=== PATIENT | female | born 1995 | race Caucasian/White ===

== ENCOUNTER 2024-10-07 10:22 | Outpatient (OUT) | payer MEDICAID, SELFPAY ==
--- NOTE | 2024-10-07 10:25 | US_ITS ---
[address] [address] Patient Name: GLENNA MCKEON MRN: [id number] date: 1995 Sex: F Assigned Patient Location: US Current Patient Location: US Accession/Order Number: [id number] Exam Date: 10/07/2024 10:26 Report Date: 10/07/2024 11:28 At the request of: DAVID HARDING Procedure: US OB anatomy EXAMINATION: US OB anatomy, US OB cervical length HISTORY: Related Condition In Second Trimester O26.92 COMPARISON: No relevant comparison available. TECHNIQUE: Transabdominal sonographic examination was performed for obstetrical and evaluation. FINDINGS: Number: 1 Heart Rate: 142.86 bpm Amniotic Fluid Volume: Subjectively normal Placental Location: ANTERIOR with lower margin 4.8 cm from os. Cervix Length: 4.81 cm ; closed. ANATOMY: Normal Structures -cerebellum, choroid plexus, cisterna magna, lateral cerebral ventricles, orbits, midline falx, hard palate, four-chamber heart, RVOT, LVOT, stomach, kidneys, bladder, umbilical cord insertion into abdomen, three-vessel cord, cervical spine, thoracic spine, lumbar spine, sacral spine, right upper extremity, left upper extremity, right lower extremity, left lower extremity. SUBOPTIMALLY SEEN: None ABNORMALITIES: None BIOMETRY: BPD: 4.80 cm; 20 weeks 4 days; 40.70 % HC: 18.11 cm; 20 weeks 4 days; 32.20 % AC: 16.26 cm; 21 weeks 2 days; 64.40 % FL: 3.23 cm; 20 weeks 0 days; 20.40 % EFW:373.00 g; 45.50 % FL/AC: 19.85 FL/BPD: 67.25 HC/AC: 1.11 GESTATIONAL AGE: Age by EDC: 20 weeks 5 days Age by current US: 20 weeks 4 days JAMEL by current US: 2025-02-20 JAMEL by EDC: 2025-02-19 US/US OB anatomy IMPRESSION: 1. Single live intrauterine with growth detailed above. Electronically authenticated by: KIANA DOUGHERTY Date: 10/07/2024 11:28
--- NOTE | 2024-10-07 10:25 | US_ITS ---
[address] [address] Patient Name: GLENNA MCKEON MRN: [id number] date: 1995 Sex: F Assigned Patient Location: US Current Patient Location: US Accession/Order Number: [id number] Exam Date: 10/07/2024 10:26 Report Date: 10/07/2024 11:28 At the request of: DAVID HARDING Procedure: US OB cervical length EXAMINATION: US OB anatomy, US OB cervical length HISTORY: Related Condition In Second Trimester O26.92 COMPARISON: No relevant comparison available. TECHNIQUE: Transabdominal sonographic examination was performed for obstetrical and evaluation. FINDINGS: Number: 1 Heart Rate: 142.86 bpm Amniotic Fluid Volume: Subjectively normal Placental Location: ANTERIOR with lower margin 4.8 cm from os. Cervix Length: 4.81 cm ; closed. ANATOMY: Normal Structures -cerebellum, choroid plexus, cisterna magna, lateral cerebral ventricles, orbits, midline falx, hard palate, four-chamber heart, RVOT, LVOT, stomach, kidneys, bladder, umbilical cord insertion into abdomen, three-vessel cord, cervical spine, thoracic spine, lumbar spine, sacral spine, right upper extremity, left upper extremity, right lower extremity, left lower extremity. SUBOPTIMALLY SEEN: None ABNORMALITIES: None BIOMETRY: BPD: 4.80 cm; 20 weeks 4 days; 40.70 % HC: 18.11 cm; 20 weeks 4 days; 32.20 % AC: 16.26 cm; 21 weeks 2 days; 64.40 % FL: 3.23 cm; 20 weeks 0 days; 20.40 % EFW:373.00 g; 45.50 % FL/AC: 19.85 FL/BPD: 67.25 HC/AC: 1.11 GESTATIONAL AGE: Age by EDC: 20 weeks 5 days Age by current US: 20 weeks 4 days JAMEL by current US: 2025-02-20 JAMEL by EDC: 2025-02-19 US/US OB cervical length IMPRESSION: 1. Single live intrauterine with growth detailed above. Electronically authenticated by: KIANA DOUGHERTY Date: 10/07/2024 11:28
== END 2024-10-07 10:23 | disposition home or self-care (01) ==
LOC: US 10:22
PROVIDERS: Visit Provider Midwife
DX: O26.92 Pregnancy related conditions, unspecified, second trimester (principal); Z3A.20 20 weeks gestation of pregnancy
CPT/HCPCS: 76805; 76817

== ENCOUNTER 2024-12-01 07:32 | Outpatient (RCR) | payer OTHER, SELFPAY ==
[2024-12-01 12:10] VITALS: BP 119/78; PULSE 77; TEMP 36.6; O2SAT 100
[2024-12-01] MEDS: RHO(D) IMMUNE GLOBULIN 1,500 UNIT SYRINGE 1500 UNIT IM (12:21)
== END 2024-12-01 23:59 | disposition home or self-care (01) ==
LOC: INF 07:32
PROVIDERS: Visit Provider Midwife
DX: O26.893 Other specified pregnancy related conditions, third trimester (principal); Z67.91 Unspecified blood type, Rh negative
CPT/HCPCS: 36415; 86850; 86900; 86901; 96372; J2791

== ENCOUNTER 2025-02-10 00:40 | Observation (INO) | payer OTHER, SELFPAY ==
--- OUTSIDE RECORDS SUMMARY | 2025-02-10 00:49 | XMS_ITS | CCD ---
Author Organization [facility] Care Team Providers Care Barrel Builder Name Role Phone SULEMAN Martin Attending Provider [phone] NO FAMILY, PHYSICIAN Primary Care Provider Unava ilable Amrita Martin Unavailable Unavailable Primary Care Provider Unavailabl e NO PCP, NO PCP Primary Care Unavailable OLU YOUNG Attending Unavailable NO PCP, NO PCP Primary Care Unavailable NELY ROSE Attending Unavailable ANDRE CLEMONS Attending Unavailable NO PCP, NO PCP Primary Care Unavailable ALISTAIR GHOSH Admitting Unavailable Adilson Gandhi Attending Unavailable Oksana Adilson Admitting Unavailable NO FAMILY, PHYSICIAN Primary Care Unavailable NO PCP, NO PCP Primary Care Unavailable MYRNA LUCIA Attending Unavailable NO PCP, NO PCP Primary Care Unavailable HARSHA SAWYER Attending Unavailable FLORO, DAVID L Attending Unavailable FLORO, DAVID L Attending Unavailable FLORO, DAVID L Attending Unavailable FLORO, DAVID L Referring Unavailable FLORO, DAVID L Attending Unavailable FLORO, DAVID L Attending Unavailable FLORO, DAVID L Attending Unavailable FLORO, DAVID L Attending Unavailable FLORO, DAVID L Attending Unavailable FLORO, DAVID L Attending Unavailable Allergies Allergy Classification Reported Allergen(s) Allergy Type Date of Onset Reaction(s) Facility (2 sources) HYDROcodone; Translations: [HYDROCODONE] Drug Allergy 5 Unknown [facility] (3 sources) lamoTRIgine; Translations: [LAMOTRIGINE] Drug Allergy 7 Unknown [facility] (20 sources) Acetaminophen / HYDROcodone; Translations: [HYDROCODONE-ACET AMINOPHEN] Drug Allergy 6 Anaphylaxis, Nausea Only [facility] (20 sources) FLUoxetine; Translations: [FLUOXETINE] Drug Allergy 7 Nausea And Vomiting, GI intolerance [facility] (20 sources) Lamotrigine Allergy to substance 7 Nausea Only [facility] (1 source) lamoTRIgine Drug Allergy 4 [facility] Repository Medications Current Medications Medication Drug Class(es) Dates Sig (Normalized) Sig (Original) cephalexin 500 mg oral capsule (4 sources) Cephalosporin Antibacterial Start: 02-04-2025 End: 02-14-2025 take 1 capsule by mouth in the morning, then take 1 capsule by mouth in the evening, then take 1 capsule by mouth at bedtime cephalexin (Keflex) 500 MG capsule Indications: Asymptomatic microscopic hematuria Take 1 capsule (500 mg) by mouth in the morning and 1 capsule (500 mg) in the evening and 1 capsule (500 mg) before bedtime. Do all this for 10 days. 30 capsule 02/04/2025 02/14/2025 Active Start: 11-01-2024 End: 11-11-2024 cephalexin (Keflex) 500 MG c apsule Take 500 mg by mouth in the morning and 500 mg at noon and 500 mg in the evening and 500 mg before bedtime. 11/01/2024 11/11/2024 Active multivitamin () 27-0.8 MG tablet (16 sources) Start: 10-14-2024 take 1 tablet by mouth once daily multivitamin () 27-0.8 MG tablet Indications: examination or test, positive result Take 1 tablet by mouth Daily 30 tablet 11 10/14/2024 Active Completed/Discontinued Medications Medication Drug Class(es) Dates Sig (Normalized) Sig (Original) ondansetron 8 mg disintegrating oral tablet (9 sources) Serotonin-3 Receptor Antagonist Start: 09-09-2024 End: 10-09-2024 take 1 tablet by mouth every eight hours for nausea ondansetron ODT (Zofran-ODT) 8 MG disintegrating tablet Indications: related condition in second trimester , Nausea/vomiting in Take 1 tablet (8 mg) by mouth every 8 (eight) hours if needed for nausea or vomiting 20 tablet 1 09/09/2024 10/09/2024 Start: 07-29-2024 End: 08-28-2024 take 1 tablet by mouth every eight hours for nausea ondansetron ODT (Zofran-ODT) 8 MG disintegrating tablet Indications: Nausea and vomiting during Take 1 tablet (8 mg) by mouth every 8 (eight) hours if needed for nausea or vomiting 20 tablet 1 07/29/2024 08/28/2024 Active Problems Active Problems Problem Classification Problem Date Documented Da te Episodic/Chronic Abdominal pain (1 source) Lower abdominal pain, unspecified; Translations: [Lower abdominal pain, unspecified] Onset: 06-17-2018 Episodic Acute and chronic tonsillitis (1 source) Acute tonsillitis, unspecified; Translations: [Acute tonsillitis, unspecified] Onset: 01-31-2025 Episodic Genitourinary symptoms and ill-defined conditions (3 sources) Frequency of micturition; Translations: [Asymptomatic microscopic hematuria] Onset: 08-09-2024 02-04-2025 Episodic Other complications of (4 sources) Vomiting of , unspecified; Translations: [Unspecified vomiting of , unspecified as to episode of care or not applicable] 07-29-2024 Episodic Other complications of (4 sources) Finding related to ; Translations: [ related conditions, unspecified, second trimester] 09-09-2024 Episodic Other infections; including parasitic (4 sources) H/O: infectious disease; Translations: [Personal history of other infectious and parasitic diseases] 11-03-2024 Episodic Other injuries and conditions due to external causes (1 source) Unspecified injury of abdomen, initial encounter; Translations: [Unspecified injury of abdomen, initial encounter] Onset: 12-16-2024 Episodic Other and delivery including normal (12 sources) test positive; Translations: [Encounter for test, result positive] 07-29-2024 Episodic Other screening for suspected conditions (not mental disorders or infectious disease) (8 sources) Patient encounter status; Translations: [Encounter for screening for diseases of the blood and blood-forming organs and certain disorders involving the immune mechanism] 12-01-2024 Episodic Skin and subcutaneous tissue infections (4 sources) Furuncle, unspecified; Translations: [Abscess] Onset: 11-01-2024 Episodic Unclassified (1 source) Abdominal Injury Onset: 12-16-2024 Unclassified (1 source) Painful Urination Onset: 09-07-2024 Unclassified (1 source) Cold Like Symptoms Onset: 01-31-2025 Unclassified (1 source) abscess, 24 wk preg Onset: 11-03-2024 Past or Other Problems Problem Classification Problem Date Documented Da te Episodic/Chronic Inflammatory diseases of female pelvic organs (1 source) Acute vaginitis; Translations: [Acute vaginitis] Onset: 09-07-2024 Episodic Other female genital disorders (1 source) Vaginal discharge Onset: 09-07-2024 Episodic Other injuries and conditions due to external causes (1 source) Injury, unspecified, initial encounter Onset: 02-21-2022 Resolved: 02-21-2022 Episodic Other injuries and conditions due to external causes (1 source) Other injury of unspecified body region, initial encounter Onset: 02-21-2022 Resolved: 02-21-2022 Episodic Results Test Name Value Interpretation Reference Range Facility POCT RAPID STREP Aon 025 S. pyogenes Ag IA Ql (Unsp spec) Negative Normal Negative [facility] Comment on above: Performed By: #### N SAS #### [facility] ([facility]) [address] [facility] [place] [address] VIR SARS/FLU A+B/RSV BY NAAT/MOL ECULAR (M4RT COLLECTION TUBE)on 01-31-2025 SARS/FLU A+B/RSV BY NAAT/MOLECULAR (M4RT COLLECTION TUBE) FLU A PCR Negative FLU B PCR Negative RSV BY PCR Negative SARS COV 2 BY PCR Not Detected Normal Not Detected [facility] Comment on above: Order Comment: The X pert Xpress SARS-CoV-2/Flu/RSV Plus test is a rapid, multiplexed real-time RT-PCR test intended for the simultaneous qualitative detection and differentiation of SARS-CoV-2, influenza A, influenza B and respiratory syncytial virus (RSV) viral RNA from individuals suspected of respiratory viral infection consistent with COVID-19 by Their healthcare provider. This test has not been validated in asymptomatic patients. The Xpert Xpress SARS-CoV-2 test is intended for use by qualified and trained operators who are performing tests using either [employer] or [employer] systems and is limited to laboratories that meet the CLIA requirements to perform high and moderate complexity tests. The Xpert Xpress SARS-CoV-2/Flu/RSV Plus is only for use under the Food and Drug Administration's Emergency Use Authorization. Results are for the simultaneous detection and differentiation of SARS-CoV-2, influenza A, influenza B and RSV nucleic acids in clinical specimens. SARS-CoV-2, influenza A, influenza B and RSV RNA identified by this test are generally detectable in upper respiratory samples during the acute phase of infection. Positive results are Indicative of the presence of the identified virus, but do not rule out bacterial infection or co-infection with other pathogens not detected by this test. Clinical correlation with patient history and other diagnostic information is necessary to determine patient infection status. The agent detected may not be the definite cause of disease. Negative results do not preclude SARS-CoV-2, influenza A, influenza B and RSV infection and should not be used as the sole basis for treatment or other patient management decisions. Negative results must be combined with clinical observations, patient history and epidemiological information. An Invalid result may occur with specimen-associated inhibition unable to be resolved with specimen repeat. Fact Sheet for Healthcare Providers: https://www.fda.gov/media/859359/download Fact Sheet for Patients: https://www.fda.gov/media/962732/download Performed By: #### C OVFLR #### [facility] ([facility]) [address] [facility] [place] [address] VIR US OB FOLLOW UP TRANSABDOMIN AL APPROACHon 12-15-2024 US OB FOLLOW UP TRANSABDOMINAL APPROACH TITLE OF EXAM: OB Ultrasound: REASON FOR EXAM: Growth. COMPARISON: 10/07/2024 TECHNIQUE: Grayscale and M-mode Doppler imaging is performed. FINDINGS: heart rate: 147 bpm ANN: 14.2 cm (8.9-23.6) BPD: 7.5 cm HC: 27.5 cm AC: 26.5 cm FL: 5.8 cm GA for sonogram: 30.0 wk (28.2-31.8) Cervix length: 4.0 cm JAMEL: 02/19/2025 Weight Estimate: Weight: 1583 gm / 3 lbs, 7 oz (6339-4504 gm) Hadlock Normal: 1674 gm (3040-2368 gm) Hadlock Wt%: 34% for 30.6 wks LMP: 05/15/24 Age by LMP: 30 w 4 d Age Prior US: 20 w 4 d Age US Today: 30 w 2 d JAMEL by LMP: 02-19-25 JAMEL Prior US: JAMEL US Today: 02-21-25 Gestation: Single Position: Breech Placenta Location: Anterior Placental Grade: 3 Heart Rate: 147 bpm Somatic Movement: Yes Cervical Length: 3.95 cm IMPRESSION: 1. Single viable intrauterine gestation, with an estimated ultrasound age of 30 weeks 2 days. 2. Breech presentation currently with anterior placenta. Dictated and transcribed 12/15/24/dpd This report has been electronically signed and approved by the interpreting radiologist. Normal Not Available SUPERFICIAL WOUND CULTUREon 11-03-2024 Bacteria identified Aer cx Nom (Wound) SPECIMEN NOTES ANOGENITAL GRAM STAIN 10 to 24 WHITE BLOOD CELLS/LPF 0 SQUAMOUS EPITHELIAL CELLS/LPF RARE GRAM POSITIVE COCCI CULTURE RESULTS NO GROWTH 2 DAYS Normal [facility] Comment on above: Performed By: #### 6 32-0 #### [facility] ([id number]) [address], [address] [place] [address] No Panel InformationOrdered By: Radiologist Radiology on 10-07-2024 [facility] [employer] Work Phone: No Panel Informationon 10-07 Radiology Study observation (narrative) [facility] US OB ANATOMYon 10-07-2024 [place] [address] Ultrasound Report Signed Patient: GLENNA MCKEON MR#: [id number] : 1995 Acct:[id number] Age/Sex: 29 / F ADM Date: 10/07/24 Loc: US Attending Dr: DAVID SINGLETARY APRN, CNM Ordering Physician: DAVID SINGLETARY APRN, CNM Date of Service: 10/07/24 Procedure(s): US OB anatomy Accession Number(s): [id number] cc: DAVID SINGLETARY APRN, CNM; Physician,Non-Staff M.D. [address] [address] Patient Name: GLENNA MCKEON MRN: [facility]:[id number] date: 1995 Sex: F Assigned Patient Location: US Current Patient Location: US Accession/Order Number: [id number] Exam Date: 10/07/2024 10:26 Report Date: 10/07/2024 11:28 At the request of: DAVID SINGLETARY Procedure: US OB anatomy EXAMINATION: US OB anatomy, US OB cervical length HISTORY: Related Condition In Second Trimester O26.92 COMPARISON: No relevant comparison available. TECHNIQUE: Transabdominal sonographic examination was performed for obstetrical and evaluation. FINDINGS: Number: 1 Heart Rate: 142.86 bpm Amniotic Fluid Volume: Subjectively normal Placental Location: ANTERIOR with lower margin 4.8 cm from os. Cervix Length: 4.81 cm ; closed. ANATOMY: Normal Structures -cerebellum, choroid plexus, cisterna magna, lateral cerebral ventricles, orbits, midline falx, hard palate, four-chamber heart, RVOT, LVOT, stomach, kidneys, bladder, umbilical cord insertion into abdomen, three-vessel cord, cervical spine, thoracic spine, lumbar spine, sacral spine, right upper extremity, left upper extremity, right lower extremity, left lower extremity. SUBOPTIMALLY SEEN: None ABNORMALITIES: None BIOMETRY: BPD: 4.80 cm; 20 weeks 4 days; 40.70 % HC: 18.11 cm; 20 weeks 4 days; 32.20 % AC: 16.26 cm; 21 weeks 2 days; 64.40 % FL: 3.23 cm; 20 weeks 0 days; 20.40 % EFW:373.00 g; 45.50 % FL/AC: 19.85 FL/BPD: 67.25 HC/AC: 1.11 GESTATIONAL AGE: Age by EDC: 20 weeks 5 days Age by current US: 20 weeks 4 days JAMEL by current US: 2025-02-20 JAMEL by EDC: 2025-02-19 US/US OB anatomy IMPRESSION: 1. Single live intrauterine with growth detailed above. Electronically authenticated by: JOSE SAXENA Date: 10/07/2024 11:28 Dictated By: Jose Saxena M.D. Signed By: 10/07/24 1131 DD/ 1128 TD/TT: Metal Sander: [facility] Radiology, Radiologist, - 10/07/2024 [place] [address] Ultrasound Report Signed Patient: GLENNA MCKEON MR#: [id number] : 1995 Acct:[id number] Age/Sex: 29 / F ADM Date: 10/07/24 Loc: US Attending Dr: DAVID SINGLETARY APRN, CNM Ordering Physician: DAVID SINGLETARY APRN, CNM Date of Service: 10/07/24 Procedure(s): US OB anatomy Accession Number(s): [id number] cc: DAVID SINGLETARY APRN, CNM; Physician,Non-Staff M.D. The [place] [id number] Patient Name: GLENNA MCKEON MRN: [id number] date: 1995 Sex: F Assigned Patient Location: US Current Patient Location: US Accession/Order Number: [id number] Exam Date: 10/07/2024 10:26 Report Date: 10/07/2024 11:28 At the request of: DAVID SINGLETARY Procedure: US OB anatomy EXAMINATION: US OB anatomy, US OB cervical length HISTORY: Related Condition In Second Trimester O26.92 COMPARISON: No relevant comparison available. TECHNIQUE: Transabdominal sonographic examination was performed for obstetrical and evaluation. FINDINGS: Number: 1 Heart Rate: 142.86 bpm Amniotic Fluid Volume: Subjectively normal Placental Location: ANTERIOR with lower margin 4.8 cm from os. Cervix Length: 4.81 cm ; closed. ANATOMY: Normal Structures -cerebellum, choroid plexus, cisterna magna, lateral cerebral ventricles, orbits, midline falx, hard palate, four-chamber heart, RVOT, LVOT, stomach, kidneys, bladder, umbilical cord insertion into abdomen, three-vessel cord, cervical spine, thoracic spine, lumbar spine, sacral spine, right upper extremity, left upper extremity, right lower extremity, left lower extremity. SUBOPTIMALLY SEEN: None ABNORMALITIES: None BIOMETRY: BPD: 4.80 cm; 20 weeks 4 days; 40.70 % HC: 18.11 cm; 20 weeks 4 days; 32.20 % AC: 16.26 cm; 21 weeks 2 days; 64.40 % FL: 3.23 cm; 20 weeks 0 days; 20.40 % EFW:373.00 g; 45.50 % FL/AC: 19.85 FL/BPD: 67.25 HC/AC: 1.11 GESTATIONAL AGE: Age by EDC: 20 weeks 5 days Age by current US: 20 weeks 4 days JAMEL by current US: 2025-02-20 JAMEL by EDC: 2025-02-19 US/US OB anatomy IMPRESSION: 1. Single live intrauterine with growth detailed above. Electronically authenticated by: JOSE SAXENA Date: 10/07/2024 11:28 Dictated By: Jose Saxena M.D. Signed By: 10/07/24 1131 DD/ 1128 TD/TT: Metal Sander: [facility] [place] [address] Ultrasound Report Signed Patient: GLENNA MCKEON MR#: [id number] : 1995 Acct:[id number] Age/Sex: 29 / F ADM Date: 10/07/24 Loc: US Attending Dr: DAVID SINGLETARY APRN, CNM Ordering Physician: DAVID SINGLETARY APRN, CNM Date of Service: 10/07/24 Procedure(s): US OB cervical length Accession Number(s): [id number] cc: DAVID SINGLETARY APRN, CNM; Physician,Non-Staff [facility] [place] [id number] Patient Name: GLENNA MCKEON MRN: [id number] date: 1995 Sex: F Assigned Patient Location: US Current Patient Location: US Accession/Order Number: [id number] Exam Date: 10/07/2024 10:26 Report Date: 10/07/2024 11:28 At the request of: DAVID SINGLETARY Procedure: US OB cervical length EXAMINATION: US OB anatomy, US OB cervical length HISTORY: Related Condition In Second Trimester O26.92 COMPARISON: No relevant comparison available. TECHNIQUE: Transabdominal sonographic examination was performed for obstetrical and evaluation. FINDINGS: Number: 1 Heart Rate: 142.86 bpm Amniotic Fluid Volume: Subjectively normal Placental Location: ANTERIOR with lower margin 4.8 cm from os. Cervix Length: 4.81 cm ; closed. ANATOMY: Normal Structures -cerebellum, choroid plexus, cisterna magna, lateral cerebral ventricles, orbits, midline falx, hard palate, four-chamber heart, RVOT, LVOT, stomach, kidneys, bladder, umbilical cord insertion into abdomen, three-vessel cord, cervical spine, thoracic spine, lumbar spine, sacral spine, right upper extremity, left upper extremity, right lower extremity, left lower extremity. SUBOPTIMALLY SEEN: None ABNORMALITIES: None BIOMETRY: BPD: 4.80 cm; 20 weeks 4 days; 40.70 % HC: 18.11 cm; 20 weeks 4 days; 32.20 % AC: 16.26 cm; 21 weeks 2 days; 64.40 % FL: 3.23 cm; 20 weeks 0 days; 20.40 % EFW:373.00 g; 45.50 % FL/AC: 19.85 FL/BPD: 67.25 HC/AC: 1.11 GESTATIONAL AGE: Age by EDC: 20 weeks 5 days Age by current US: 20 weeks 4 days JAMEL by current US: 2025-02-20 JAMEL by EDC: 2025-02-19 US/US OB cervical length IMPRESSION: 1. Single live intrauterine with growth detailed above. Electronically authenticated by: JOSE SAXENA Date: 10/07/2024 11:28 Dictated By: Jose Saxena M.D. Signed By: 10/07/24 1131 DD/ 1128 TD/TT: Metal Sander: [facility] Radiology, Radiologist, MD - 10/07/2024 [place] [address] Ultrasound Report Signed Patient: GLENNA MCKEON MR#: [id number] : 1995 Acct:[id number] Age/Sex: 29 / F ADM Date: 10/07/24 Loc: US Attending Dr: DAVID SINGLETARY APRN, CNM Ordering Physician: DAVID SINGLETARY APRN, CNM Date of Service: 10/07/24 Procedure(s): US OB cervical length Accession Number(s): [id number] cc: DAVID SINGLETARY APRN, CNM; Physician,Non-Staff [place] [address] [address] Patient Name: GLENNA MCKEON MRN: [facility]:[id number] date: 1995 Sex: F Assigned Patient Location: US Current Patient Location: US Accession/Order Number: [id number] Exam Date: 10/07/2024 10:26 Report Date: 10/07/2024 11:28 At the request of: DAVID SINGLETARY Procedure: US OB cervical length EXAMINATION: US OB anatomy, US OB cervical length HISTORY: Related Condition In Second Trimester O26.92 COMPARISON: No relevant comparison available. TECHNIQUE: Transabdominal sonographic examination was performed for obstetrical and evaluation. FINDINGS: Number: 1 Heart Rate: 142.86 bpm Amniotic Fluid Volume: Subjectively normal Placental Location: ANTERIOR with lower margin 4.8 cm from os. Cervix Length: 4.81 cm ; closed. ANATOMY: Normal Structures -cerebellum, choroid plexus, cisterna magna, lateral cerebral ventricles, orbits, midline falx, hard palate, four-chamber heart, RVOT, LVOT, stomach, kidneys, bladder, umbilical cord insertion into abdomen, three-vessel cord, cervical spine, thoracic spine, lumbar spine, sacral spine, right upper extremity, left upper extremity, right lower extremity, left lower extremity. SUBOPTIMALLY SEEN: None ABNORMALITIES: None BIOMETRY: BPD: 4.80 cm; 20 weeks 4 days; 40.70 % HC: 18.11 cm; 20 weeks 4 days; 32.20 % AC: 16.26 cm; 21 weeks 2 days; 64.40 % FL: 3.23 cm; 20 weeks 0 days; 20.40 % EFW:373.00 g; 45.50 % FL/AC: 19.85 FL/BPD: 67.25 HC/AC: 1.11 GESTATIONAL AGE: Age by EDC: 20 weeks 5 days Age by current US: 20 weeks 4 days JAMEL by current US: 2025-02-20 JAMEL by EDC: 2025-02-19 US/US OB cervical length IMPRESSION: 1. Single live intrauterine with growth detailed above. Electronically authenticated by: JOSE SAXENA Date: 10/07/2024 11:28 Dictated By: Jose Saxena M.D. Signed By: 10/07/24 1131 DD/ 1128 TD/TT: Metal Sander: [facility] CHLAMYDIA/GC BY PCRon 2024 CHLAMYDIA/GC BY PCR SPECIMEN SOURCE CERVIX Corrected on 09/07 AT 2141: Previously reported as VAGINAL/CERVIX CHLAMYDIA DNA(PCR) Negative (qualifier value) Chlamydia trachomatis not detected by nucleic acid amplification. This does not exclude the possibility of infection because results are dependent on adequate specimen collection. GONORRHOEAE DNA(PCR) Negative (qualifier value) Neisseria gonorrhoeae not detected by nucleic acid amplification. This does not exclude the possibility of infection because results are dependent on adequate specimen collection. [facility] Comment on above: Performed By: #### C GS #### [facility] ([id number]) [address] [place] [address], [address] [place] [address] VAGINITIS PANEL PCRon 2024 VAGINITIS PANEL PCR BACT. VAGINOSIS DNA Not detected (qualifier value) Qualitative results are reported based on detection and quantitation of targeted organism markers which include: Lactobacillus spp. (L. crispatus and L. jensenii), Gardnerella vaginalis, Atopobium vaginae, Bacterial Vaginosis Associated Bacteria-2 (BVAB-2) and Megasphaera-1 ZULEMA SPECIES DNA Detected (qualifier value) Zulema species result based on detection of one or more of the following species: C. albicans, C. tropicalis, C. parapsilosis or C. dubliniensis ZULEMA KRUSEI DNA Not detected (qualifier value) No Zulema krusei detected ZULEMA GLABRATA DNA Not detected (qualifier value) No Zulema glabrata detected TRICHOMONAS VAG DNA Detected (qualifier value) Trichomonas vaginalis detected NOTE BD MAX Vaginal Panel has not been evaluated for patients under 18 years old. Results for these patients should be reviewed and assessed in accordance with clinical presentation to determine patient diagnosis. [facility] Comment on above: Performed By: #### V PPCR #### [facility] ([id number]) [address], [address] [place] [address] Chlamydia/GC/Trich NAAon Chlamydia Trachomotis, BEN Negative Normal Negative [facility] Comment on above: Order Comment: SOURC E OF SPECIMEN: self Performed By: #### G CCHLAMTRI #### [facility] , Neisseria Gonorrhoeae, BEN Negative Normal Negative [facility] Comment on above: Order Comment: SOURC E OF SPECIMEN: self Performed By: #### G CCHLAMTRI #### [facility] , Trichomonas BEN Positive Critically abnormal Negative [facility] Comment on above: Order Comment: SOURC E OF SPECIMEN: self Result Comment: Perf ormed at: =G - [facility] [address] [id number] [employer] Salesperson: Jerrica Lyman MD, Phone: [phone] PERFORMED BY: [place] [address] PATHOLOGIST TOOL MACHINE SETUP OPERATOR KHADIJAH GREEN M.D. Performed By: #### G CCHLAMTRI #### [facility] , Dipstick and Microscopicon 1 10-10-2023 Appearance (U) Cloudy Critically abnormal Clear [facility] Comment on above: Order Comment: Name Collection Type:: Clean-Voided Midstream Performed By: #### A RUSSELUATIMMY DAY UHCG #### [facility] [address] [place] [address] [place] Bacteria,Urine 1+ High None Seen [facility] Comment on above: Order Comment: Name Collection Type:: Clean-Voided Midstream Performed By: #### A DDONUAPLUSREIU, UHCG #### [facility] [address] [place] [id number] [place] Bilirubin,Urine Negative Normal Negative [facility] Comment on above: Order Comment: Name Collection Type:: Clean-Voided Midstream Performed By: #### A DDONUAPLUS, CUU, UHCG #### [address] Color (U) Yellow Normal Yellow [facility] Comment on above: Order Comment: Name Collection Type:: Clean-Voided Midstream Performed By: #### A DDONUAPLUS, CUU, UHCG #### [address] Glucose Ql (U) Normal Normal Normal [facility] Comment on above: Order Comment: Name Collection Type:: Clean-Voided Midstream Performed By: #### A DDONUAPLUS, CUU, UHCG #### [place] [address] [place] Hyaline Casts,Urine None Normal 0-8 [facility] Comment on above: Order Comment: Name Collection Type:: Clean-Voided Midstream Performed By: #### A DDONUAPLUS, CUU, UHCG #### [address] Ketones Ql (U) Negative Normal Negative [facility] Comment on above: Order Comment: Name Collection Type:: Clean-Voided Midstream Performed By: #### A DDONUAPLUS, CUU, UHCG #### [address] Leukocyte esterase Test strip Ql (U) 4+ High Negative [facility] Comment on above: Order Comment: Name Collection Type:: Clean-Voided Midstream Performed By: #### A DDONUAPLUS, CUU, UHCG #### [place] [address] [place] Mucus,Urine 1+ Critically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 mass fraction (Bld) 5.4 % Normal 4.2-5.8 [facility] LHon 04-04-2018 LH 4.3 IU/L Normal SEE BELOW [facility] Comment on above: Result Comment: EXPECTED VALUES FOR LH FOR FEMALES >17 YEARS FOLLICULAR . . . . . . . . . . . . . . IU/L 2.4-12.6 MID-CYCLE PEAK . . . . . . . . . . . . IU/L 14.0-95.6 LUTEAL . . . . . . . . . . . . . . . . IU/L 1.0-11.4 POSTMENOPAUSAL . . . . . . . . . . . . IU/L 7.7-58.5 PROGESTERONEon 04-04-2018 Protein mass conc 5.17 ng/mL Normal SEE BELOW [employer] Comment on above: Result Comment: EXPECTED VALUES FOR PROGESTERONE MALE . . . . . . . . . . . . . . . . . ng/mL <0.15 FEMALE FOLLICULAR PHASE . . . . . . . . . ng/mL 0.06-0.89 OVULATION . . . . . . . . . . . . . ng/mL 0.12-12.00 LUTEAL PHASE . . . . . . . . . . . ng/mL 1.83-23.90 POSTMENOPAUSAL . . . . . . . . . . ng/mL <0.13 1ST TRIMESTER . . . . . . . . . . . ng/mL 11.00-44.30 2ND TRIMESTER . . . . . . . . . . . ng/mL 25.40-83.30 3RD TRIMESTER . . . . . . . . . . . ng/mL 58.70-214.00[facility] [address] [place], [place] [address]Laboratory Director: Fernando Farfan M.D.CLIA No. [id number] CAP Accreditation No. [id number] PROLACTINon 04-04-2018 Protein mass conc 8.5 ng/mL Normal 4.8-33.0 [facility] TSH WITH FT4 REFLEXon 2017 Thyrotropin Qn 3.25 uIU/mL Normal 0.40-4.10 [facility] Vital Signs Date Time Vital Sign Value Performing Clinician Facility 02-04-2025 13:38-0400 Body mass index (BMI) [Ratio] 35.71 kg/m2 David Singletary CNM Work Phone: [facility] 02-04-2025 13:38-0400 Body weight 103.42 kg David Longo CNM Work Phone: [facility] 02-04-2025 13:38-0400 Diastolic blood pressure 70 mm[Hg] David Longo CNM Work Phone: [facility] 02-04-2025 13:38-0400 Systolic blood pressure 118 mm[Hg] David Floro CNM Work Phone: [facility] 01-27-2025 15:28-0400 Body mass index (BMI) [Ratio] 36.34 kg/m2 David Longo CNM Work Phone: [facility] 01-27-2025 15:28-0400 Body weight 105.23 kg David Longo CNM Work Phone: [facility] 01-27-2025 15:28-0400 Diastolic blood pressure 80 mm[Hg] David Floro CNM Work Phone: [facility] 01-27-2025 15:28-0400 Systolic blood pressure 118 mm[Hg] David Floro CNM Work Phone: [facility] 01-12-2025 14:30-0400 Body mass index (BMI) [Ratio] 35.71 kg/m2 David Floro CNM Work Phone: [facility] 01-12-2025 14:30-0400 Body weight 103.42 kg David Floro CNM Work Phone: [facility] 01-12-2025 14:30-0400 Diastolic blood pressure 68 mm[Hg] David Floro CNM Work Phone: [facility] 01-12-2025 14:30-0400 Systolic blood pressure 110 mm[Hg] David Floro CNM Work Phone: [facility] 12-01-2024 13:31-0400 Body mass index (BMI) [Ratio] 36.02 kg/m2 David Floro CNM Work Phone: [facility] 12-01-2024 13:31-0400 Body weight 104.33 kg David Floro CNM Work Phone: [facility] 11-03-2024 15:12-0500 Body mass index (BMI) [Ratio] 34.46 kg/m2 David Floro CNM Work Phone: [facility] 11-03-2024 15:12-0500 Body weight 99.79 kg David Floro CNM Work Phone: [facility] 11-03-2024 15:12-0500 Diastolic blood pressure 70 mm[Hg] David Floro CNM Work Phone: [facility] 11-03-2024 15:12-0500 Systolic blood pressure 112 mm[Hg] David Floro CNM Work Phone: [facility] 10-07-2024 13:28-0500 Body mass index (BMI) [Ratio] 33.77 kg/m2 David Floro CNM Work Phone: [facility] 10-07-2024 13:28-0500 Body weight 97.8 kg David Floro CNM Work Phone: [facility] 10-07-2024 13:28-0500 Diastolic blood pressure 68 mm[Hg] David Floro CNM Work Phone: [facility] 10-07-2024 13:28-0500 Systolic blood pressure 110 mm[Hg] David Floro CNM Work Phone: [facility] 09-09-2024 14:05-0500 Body mass index (BMI) [Ratio] 33.05 kg/m2 David Floro CNM Work Phone: [facility] 09-09-2024 14:05-0500 Body weight 95.71 kg David Floro CNM Work Phone: [facility] 07-29-2024 13:53-0500 Body mass index (BMI) [Ratio] 33.05 kg/m2 David Floro CNM Work Phone: [facility] 07-29-2024 13:53-0500 Body weight 95.71 kg David Floro CNM Work Phone: [facility] 07-29-2024 13:53-0500 Diastolic blood pressure 80 mm[Hg] David Floro CNM Work Phone: [facility] 07-29-2024 13:53-0500 Systolic blood pressure 118 mm[Hg] David Floro CNM Work Phone: [facility] 02-21-2022 11:15-0400 Body height 170.18 cm Amrita Martin Other [facility] [employer] Other 02-21-2022 11:15-0400 Body mass index (BMI) [Ratio] 28.66 kg/m2 Amrita Martin Other [facility] Other 02-21-2022 11:15-0400 Body temperature 98.1 [degF] Amrita Martin Other [facility] Other 02-21-2022 11:15-0400 Body weight 83.01 kg Amrita Martin Other [facility] Other 02-21-2022 11:15-0400 Diastolic blood pressure 88 mm[Hg] Amrita Martin Other [facility] Other 02-21-2022 11:15-0400 Respiratory rate 16 /min Amrita Martin Other [facility] Other 02-21-2022 11:15-0400 SaO2% (BldA) [Mass fraction] 99 % Amrita Martin Other [facility] Other 02-21-2022 11:15-0400 Systolic blood pressure 131 mm[Hg] Amrita Martin Other [facility] Other Encounters Encounter Date Encounter Type Care Provider Facility Start: 02-04-2025 End: 02-04-2025 Bamboo flowsheet David Nesha Longo CNM Work Phone: [facility] Start: 02-04-2025 End: 02-04-2025 Bamboo flowsheet David Nesha Longo CNM Work Phone: [facility] Start: 02-04-2025 End: 02-04-2025 ambulatory DAVID LONGO Not Available Start: 02-04-2025 End: 02-04-2025 Office outpatient visit 15 minutes David Longo CNM Work Phone: [facility] Comment on above: Asymptomatic microsc opic hematuria (Primary Dx); Encounter for care of first , third trimester; Hx of trichomoniasis Start: 01-31-2025 End: 01-31-2025 Emergency department patient visit NO PCP NO PCP [facility] Start: 01-27-2025 End: 01-27-2025 Office outpatient visit 15 minutes David L Floro CNM Work Phone: [facility] Comment on above: screening for streptococcus B; Screening for cervical cancer Start: 01-27-2025 End: 01-27-2025 ambulatory DAVID L FLORO Not Available Start: 01-27-2025 End: 01-27-2025 Bamboo flowsheet David L Floro CNM Work Phone: [facility] Start: 01-27-2025 End: 01-27-2025 Bamboo flowsheet David L Floro CNM Work Phone: [facility] Start: 01-12-2025 End: 01-12-2025 Office outpatient visit 15 minutes David L Floro CNM Work Phone: [facility] Comment on above: Encounter for prenat al care of first , third trimester (Primary Dx) Start: 01-12-2025 End: 01-12-2025 ambulatory DAVID L FLORO Not Available Start: 01-12-2025 End: 01-12-2025 Bamboo flowsheet David L Floro CNM Work Phone: [facility] Start: 01-12-2025 End: 01-12-2025 Bamboo flowsheet David L Floro CNM Work Phone: [facility] Start: 12-29-2024 End: 12-29-2024 ambulatory DAVID L FLORO Not Available Start: 12-29-2024 End: 12-29-2024 Bamboo flowsheet David L Floro CNM Work Phone: [facility] Start: 12-29-2024 End: 12-29-2024 Bamboo flowsheet David L Floro CNM Work Phone: [facility] Start: 12-16-2024 End: 12-16-2024 [facility] Start: 12-15-2024 End: 12-15-2024 ambulatory DAVID L FLORO Not Available Start: 12-01-2024 End: 12-01-2024 Bamboo flowsheet David L Floro CNM Work Phone: [facility] Start: 12-01-2024 End: 12-01-2024 Bamboo flowsheet David L Floro CNM Work Phone: [facility] Start: 12-01-2024 End: 12-01-2024 Office outpatient visit 15 minutes David L Floro CNM Work Phone: [facility] Comment on above: GA: 28w4d Start: 12-01-2024 End: 12-01-2024 ambulatory DAVID L FLORO Not Available Start: 11-03-2024 End: 11-03-2024 Office outpatient visit 15 minutes David L Floro CNM Work Phone: [facility] Comment on above: Encounter for prenat al care of first , second trimester (Primary Dx); Hx of trichomoniasis Start: 11-03-2024 End: 11-03-2024 ambulatory DAVID L FLORO Not Available Start: 11-03-2024 End: 11-03-2024 Bamboo flowsheet David L Floro CNM Work Phone: [facility] Start: 11-03-2024 End: 11-03-2024 Bamboo flowsheet David L Floro CNM Work Phone: [facility] Start: 11-03-2024 End: 11-03-2024 Emergency department patient visit NO PCP NO PCP [facility] Start: 11-01-2024 End: 11-01-2024 Emergency department patient visit NO PCP NO PCP [facility] Start: 10-07-2024 End: 10-07-2024 Clinisync Result Encounter David Longo CNM Work Phone: [facility] Unsolicited Start: 10-07-2024 End: 10-07-2024 Clinisync Result Encounter David Longo CNM Work Phone: [facility] Unsolicited Start: 10-07-2024 End: 10-07-2024 Office outpatient visit 15 minutes David Nesha Longo CNM Work Phone: [facility] Comment on above: Encounter for prenat al care of first , second trimester (Primary Dx) Start: 10-07-2024 End: 10-07-2024 ambulatory DAVID L FLORO Not Available Start: 09-09-2024 End: 09-09-2024 Bamboo flowsheet David Nesha Floro CNM Work Phone: [facility] Start: 09-09-2024 End: 09-09-2024 Bamboo flowsheet David Nesha Floro CNM Work Phone: [facility] Start: 09-09-2024 End: 09-09-2024 Office outpatient visit 15 minutes David Nesha Floro CNM Work Phone: [facility] Comment on above: Nausea/vomiting in p regnancy (Primary Dx); related condition in second trimester Start: 09-09-2024 End: 09-09-2024 ambulatory DAVID L FLORO Not Available Start: 09-07-2024 End: 09-07-2024 Emergency department patient visit NO PCP NO PCP [facility] Start: 08-11-2024 End: 08-11-2024 Telephone encounter David Longo CNM Work Phone: [facility] Start: 08-09-2024 End: 08-09-2024 Emergency department patient visit Adilson Gandhi Facility:[facility] Start: 07-29-2024 End: 07-29-2024 Bamboo flowsheet David Nesha Floro CNM Work Phone: [facility] Start: 07-29-2024 End: 07-29-2024 Bamboo flowsheet David Singletary CNM Work Phone: [facility] Start: 07-29-2024 End: 07-29-2024 ambulatory DAVID SINGLETARY Not Available Start: 07-29-2024 End: 07-29-2024 Office outpatient visit 15 minutes David Singletary CNM Work Phone: [facility] Comment on above: Arrived Start: 02-21-2022 End: 02-21-2022 ambulatory Amrita Martin Other [email or web address] Other Start: 02-21-2022 Office outpatient ne w 30 minutes Amrita Martin [facility] Start: 02-21-2022 End: 02-21-2022 Patient encounter procedure RN ORTHOPEDIC Amrita Martin Work Phone: [facility] Start: 06-17-2018 End: 06-17-2018 Emergency department patient visit [facility] Procedures Date Procedure Procedure Detail Performing Clinician Start: 10-07-2024 US OB ANATOMY David Singletary CNM Work Phone: Start: 10-07-2024 US OB CERVICAL LENGTH V parisa Singletary CNM Work Phone: Start: 02-21-2022 Plain X-ray of right clavicle RN ORTHOPEDIC Amrita Martin Work Phone: Start: 06-17-2018 POCT URINE Start: 06-17-2018 VAGINITIS DNA PROBE Start: 06-17-2018 Assay of lipase Start: 06-17-2018 Basic metabolic pane l calcium total Start: 06-17-2018 Blood count complete auto&auto difrntl wbc Start: 06-17-2018 Hepatic function panel Start: 06-17-2018 URINE CULTURE CLEAN CATCH Start: 06-17-2018 VAGINAL EXAM Start: 06-17-2018 Microscopic urinalysis Start: 06-17-2018 URINE RT REFLEX TO CULTURE Plan of Treatment Date Care Activity Detail Author Start: 05-04-2025 Influenza vaccination Influenz a Vaccine (Season Ended) [facility] Start: 02-18-2025 End: 02-18-2025 Patient encounter procedure 02/18/2025 1:30 PM EDT Routine [facility] [address] [place] [address] Hayder David L, [facility] [address] [place] [address] [facility] Start: 02-11-2025 End: 02-11-2025 Patient encounter procedure 02/11/2025 1:30 PM EDT Routine [facility] [address] [place] [address] Hayder David Nesha, [facility] [address] [place] [address] [facility] Start: 02-04-2025 End: 02-04-2025 Patient encounter procedure 02/04/2025 1:30 PM EDT Routine [facility] [address] [place] [id number] Aneljaycee David L, [facility] [address] [place] [address] [facility] Start: 01-27-2025 End: 01-27-2025 Patient encounter procedure [facility] Comment on above: Arrived Start: 01-27-2025 End: 01-27-2026 STREPTOCCOUS, GROUP B CULTURE STREPTOCCOUS, GROUP B CULTURE Lab Routine screening for streptococcus B Expected: 01/27/2025 (Approximate), Expires: 01/27/2026 [facility] Work Phone: Comment on above: Expected: 01/27/2025 (Approximate), Expires: 01/27/2026 Start: 01-27-2025 End: 01-27-2026 THINPREP IMAGING PAP AND HPV DNA REFLEX HPV 16,18 THINPREP IMAGING PAP AND HPV DNA REFLEX HPV 16,18 Pathology and Cytology Routine Screening for cervical cancer Expected: 01/27/2025 (Approximate), Expires: 01/27/2026 [facility] Comment on above: Expected: 01/27/2025 (Approximate), Expires: 01/27/2026 Start: 2025 Screening for malignant neoplasm of cervix [facility] Start: 01-12-2025 End: 01-12-2025 Patient encounter procedure 01/12/2025 2:30 PM EDT Routine [facility] [address] [place] [address] David Singletary, CNM [address] [place] [address] Arrived [facility] Comment on above: Arrived Start: 12-01-2024 End: 12-01-2025 CBC panel - Blood by Automated count CBC Lab Routine Screening for iron deficiency anemia Expected: 12/01/2024 (Approximate), Expires: 12/01/2025 [facility] Work Phone: Comment on above: Expected: 12/01/2024 (Approximate), Expires: 12/01/2025 Start: 12-01-2024 End: 12-01-2025 GLUCOSE, GESTATIONAL SCREEN (50G)-135 CUTOFF GLUCOSE, GESTATIONAL SCREEN (50G)-135 CUTOFF Lab Routine Screening for diabetes mellitus (DM) Expected: 12/01/2024 (Approximate), Expires: 12/01/2025 [facility] Comment on above: Expected: 12/01/2024 (Approximate), Expires: 12/01/2025 Start: 12-01-2024 End: 12-01-2025 US for US OB follow up transabdominal approach Imaging Routine related condition in third trimester Expected: 12/01/2024, Expires: 12/01/2025 [facility] Comment on above: Expected: 12/01/2024 , Expires: 12/01/2025 Start: 12-01-2024 End: 12-01-2024 ambulatory 12/01/2024 1:30 PM EDT Initial [facility] [address] [place] [address] David Singletary, CN [address] [place] [address] Arrived [facility] Comment on above: Arrived Start: 11-03-2024 End: 11-03-2024 Patient encounter procedure [facility] Comment on above: Arrived Start: 11-03-2024 End: 11-03-2025 TRICHOMONAS VAGINALIS RNA QUALITATIVE TMA,MALES TRICHOMONAS VAGINALIS RNA QUALITATIVE TMA,MALES Lab Routine Hx of trichomoniasis Expected: 11/03/2024 (Approximate), Expires: 11/03/2025 [facility] Work Phone: Comment on above: Expected: 11/03/2024 (Approximate), Expires: 11/03/2025 Start: 10-07-2024 End: 10-07-2024 Patient encounter procedure 10/07/2024 1:30 PM EST Routine [facility] [address] [place] [id number] David Singletary, [facility] [address] [place] [address] [facility] Start: 09-09-2024 End: 09-09-2024 Patient encounter procedure 09/09/2024 2:00 PM EST Routine [facility] [address] [place] [id number] David Singletary, [facility] [address] [place] [address] Arrived [facility] Comment on above: Arrived Start: 09-09-2024 End: 09-09-2025 US for US OB ANATOMY SINGLE W US OB CERVICAL LENGTH Imaging Routine related condition in second trimester Expected: 09/09/2024, Expires: 09/09/2025 [facility] Work Phone: Comment on above: Expected: 09/09/2024 , Expires: 09/09/2025 Start: 09-01-2024 End: 09-01-2024 Patient encounter procedure 09/01/2024 2:30 PM EST Routine [facility] [address] [place] [address] David Singletary CNM [address] [place], [place] [id number] [facility] Start: 07-29-2024 End: 07-29-2025 ABO/Rh ABO/Rh Lab Routine examination or test, positive result Expected: 07/29/2024 (Approximate), Expires: 07/29/2025 [facility] Comment on above: Expected: 07/29/2024 (Approximate), Expires: 07/29/2025 Start: 07-29-2024 End: 07-29-2025 Antibody screen Antibody screen Lab Routine examination or test, positive result Expected: 07/29/2024 (Approximate), Expires: 07/29/2025 [facility] Comment on above: Expected: 07/29/2024 (Approximate), Expires: 07/29/2025 Start: 07-29-2024 End: 07-29-2025 Bacteria identified in Urine by Culture Urine culture Microbiology Routine examination or test, positive result Expected: 07/29/2024 (Approximate), Expires: 07/29/2025 [facility] Comment on above: Expected: 07/29/2024 (Approximate), Expires: 07/29/2025 Start: 07-29-2024 End: 07-29-2025 CBC panel - Blood by Automated count CBC Lab Routine examination or test, positive result Expected: 07/29/2024 (Approximate), Expires: 07/29/2025 [facility] Comment on above: Expected: 07/29/2024 (Approximate), Expires: 07/29/2025 Start: 07-29-2024 End: 07-29-2025 DRUG TOX MONITORIGN 6 W/ CONF,URINE DRUG TOX MONITORIGN 6 W/ CONF,URINE Lab Routine examination or test, positive result Expected: 07/29/2024 (Approximate), Expires: 07/29/2025 [facility] Comment on above: Expected: 07/29/2024 (Approximate), Expires: 07/29/2025 Start: 07-29-2024 End: 07-29-2025 Hemoglobin A1c/Hemoglobin.total in Blood Hemoglobin A1c Lab Routine examination or test, positive result Expected: 07/29/2024 (Approximate), Expires: 07/29/2025 [facility] Comment on above: Expected: 07/29/2024 (Approximate), Expires: 07/29/2025 Start: 07-29-2024 End: 07-29-2025 Hepatitis B virus surface Ag [Presence] in Serum or Plasma by Immunoassay Hepatitis B surface antigen Lab Routine examination or test, positive result Expected: 07/29/2024 (Approximate), Expires: 07/29/2025 [facility] Work Phone: Comment on above: Expected: 07/29/2024 (Approximate), Expires: 07/29/2025 Start: 07-29-2024 End: 07-29-2025 HIV-1/HIV-2 antigen/antibody combination immunoassay HIV-1 and HIV-2 antibodies Lab Routine examination or test, positive result Expected: 07/29/2024 (Approximate), Expires: 07/29/2025 [facility] Comment on above: Expected: 07/29/2024 (Approximate), Expires: 07/29/2025 Start: 07-29-2024 End: 07-29-2025 Neisseria gonorrhoeae DNA [Presence] in Cervical mucus by BEN with probe detection C. trachomatis / N. gonorrhoeae, DNA probe Pathology and Cytology Routine examination or test, positive result Expected: 07/29/2024 (Approximate), Expires: 07/29/2025 [facility] Comment on above: Expected: 07/29/2024 (Approximate), Expires: 07/29/2025 Start: 07-29-2024 End: 07-29-2025 Reagin Ab [Presence] in Serum by RPR RPR Lab Routine examination or test, positive result Expected: 07/29/2024 (Approximate), Expires: 07/29/2025 [facility] Comment on above: Expected: 07/29/2024 (Approximate), Expires: 07/29/2025 Start: 07-29-2024 End: 07-29-2025 Rubella antibody, IgG Rubella antibody, IgG Lab Routine examination or test, positive result Expected: 07/29/2024 (Approximate), Expires: 07/29/2025 [facility] Comment on above: Expected: 07/29/2024 (Approximate), Expires: 07/29/2025 Start: 07-29-2024 End: 07-29-2025 TSH W/REFLEX TO FT4 TSH W/REFLEX TO FT4 Lab Routine examination or test, positive result Expected: 07/29/2024 (Approximate), Expires: 07/29/2025 [facility] Comment on above: Expected: 07/29/2024 (Approximate), Expires: 07/29/2025 Start: 07-29-2024 End: 07-29-2025 URINALYSIS MICROSCOPIC URINALYSIS MICROSCOPIC Lab Routine examination or test, positive result Expected: 07/29/2024 (Approximate), Expires: 07/29/2025 [facility] Comment on above: Expected: 07/29/2024 (Approximate), Expires: 07/29/2025 Start: 01-17-2016 Screening for malignant neoplasm of cervix Pap Smear [facility] Hepatitis C virus Ab [Presence] in Serum or Plasma by Immunoassay Hepatitis C antibody Lab Routine examination or test, positive result Ordered: 07/29/2024 [facility] Comment on above: Ordered: 07/29/2024 Payers Date Payer Category Payer Medicaid (Managed Care) 1.2. [id number] 2024 Self-pay [id number] 2024 Medicaid [id number] 2017 Unknown [id number] 2003 Medicaid [id number] 1995 Unknown [id number] 2.16.8 40.1.191963.3.579.2.177 1995 Unknown [id number] 2.16. 840.1.432481.3.579.2.128 1995 Unknown [id number] 2.16. 840.1.735549.3.579.2.1285 1995 Unknown [id number] 2.16. 840.1.875145.3.579.2.1285 1995 Unknown [id number] 2.16. 840.1.233346.3.579.2.1285 1995 Unknown [id number] 2.16. 840.1.623407.3.579.2.1285 1995 Unknown [id number] .16.8 40.1.300907.3.579.2.1258 1995 Unknown [id number] 2.16.84 0.1.727880.3.579.2.1258 1995 Unknown [id number] 2.16.84 0.1.520097.3.579.2.1258 1995 Unknown [id number] 2.16.84 0.1.238837.3.579.2.1258 1995 Unknown [id number] 2.16.84 0.1.228128.3.579.2.1258 1995 Unknown [id number] 2.16.84 0.1.143500.3.579.2.1258 1995 Unknown [id number] 2.16.84 0.1.942714.3.579.2.1258 1995 Unknown [id number] 2.16.84 0.1.423230.3.579.2.1258 1995 Unknown [id number] 2.16.84 0.1.079180.3.579.2.1258 1995 Unknown [id number] 2.16.84 0.1.502303.3.579.2.1259 Private Health Insurance [facility] [id number] Unknown [id number] 2.16.8 40.1.317368.3.579.2.531 Social History Date Type Detail Facility Tobacco smoking stat us NCIS Unknown if ever smoked [facility] [employer] Other Start: 1995 Sex Assigned At Female F [facility] Start: 07-29-2024 End: 12-15-2024 Sex Assigned At [facility] [employer] Other Start: 04-12-2023 End: 12-15-2024 Tobacco smoking status NHIS Smokes tobacco daily [facility] History of tobacco use Cigarette Smoker [facility] Start: 04-12-2023 End: 12-15-2024 Tobacco use and exposure Smokeless tobacco non-user [facility] Start: 07-29-2024 End: 12-30-2024 Alcoholic beverage intake Ex-drinker (finding) [facility] Start: 07-29-2024 End: 12-15-2024 History of Social function [facility] Start: 1995 Sex assigned at Not on file N [facility] Start: 05-29-2024 [facility] Clinical Notes 02-21-2022 to 02-04-2025 David Singletary, GUIDO - 02/04/2025 1:30 PM EDTRitarimireille Singletary, GUIDO - 01/27/2025 3:30 PM EDTValerimireille Singletary, GUIDO - 01/12/2025 2:30 PM EDTValerimireille Singletary, GUIDO - 12/01/2024 1:30 PM EDT Note Date & Type Note Facility 02-04-2025 History of Presen t illness Narrative Subjective No chief complaint on file. Glenna Mckeon is a 30 y.o. at 37w6d with a working estimated date of delivery of 02/19/2025, by Ultrasound who presents for a routine visit. She denies vaginal bleeding, leakage of fluid, decreased movements, or contractions. OB History Para Term AB Living 1 SAB IAB Ectopic Multiple Live Births # Outcome Date GA Lbr Nolberto/2nd Weight Sex Type Anes PTL Lv 1 Current Her is complicated by: Pressure. Dipped urine and there is a trace of blood. Objective Physical Exam Weight: 228 lb Expected Total Weight Gain: 11 lb-19 lb Pregravid BMI: 33.04 BP: 118/70 Urine protein-15 Urine glucose-negative Assessment/Plan Diagnoses and all orders for this visit: Asymptomatic microscopic hematuria - cephalexin (Keflex) 500 MG capsule; Take 1 capsule (500 mg) by mouth in the morning and 1 capsule (500 mg) in the evening and 1 capsule (500 mg) before bedtime. Do all this for 10 days. Encounter for care of first , third trimester Hx of trichomoniasis Continue vitamin. Labs reviewed. GBS negative Expected mode of delivery Follow up in 1 week for a routine visit. documented in this encounter [facility] 01-27-2025 History of Presen t illness Narrative Subjective No chief complaint on file. Glenna Mckeon is a 30 y.o. at 36w5d with a working estimated date of delivery of 02/19/2025, by Ultrasound who presents for a routine visit. She denies vaginal bleeding, leakage of fluid, decreased movements, or contractions. 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 History of trich when she was in [place], Rh- negative Thigh pain Objective Physical Exam Weight: 232 lb Expected Total Weight Gain: 11 lb-19 lb Pregravid BMI: 33.04 BP: 118/80 Urine protein-100 Urine glucose-negative Assessment/Plan Continue vitamin. Labs reviewed. GBS taken. Expected mode of delivery Follow up in 1 week for a routine visit. documented in this encounter [facility] 01-12-2025 History of Presen t illness Narrative Subjective No chief complaint on file. Glenna Mckeon is a 29 y.o. at 34w4d with a working estimated date of delivery of 02/19/2025, by Ultrasound who presents for a routine visit. She denies vaginal bleeding, leakage of fluid, decreased movements, or contractions. OB History Para Term AB Living 1 SAB IAB Ectopic Multiple Live Births # Outcome Date GA Lbr Nolberto/2nd Weight Sex Type Anes PTL Lv 1 Current Her is complicated by: history of drug use, marijuana use, history of trichomoniasis in [place] No problems Objective Physical Exam Weight: 228 lb Expected Total Weight Gain: 11 lb-19 lb Pregravid BMI: 33.04 BP: 110/68 Urine protein Urine glucose Assessment/Plan Diagnoses and all orders for this visit: Encounter for care of first , third trimester Pap next visit. Patient states she doesn't remember when she had one last. Continue vitamin. Labs reviewed. GBS next visit Expected mode of delivery Follow up in 1 week for a routine visit. documented in this encounter [facility] 12-01-2024 History of Presen t illness Narrative Subjective No chief complaint on file. Glenna Mckeon is a 29 y.o. at 28w4d with a working estimated date of delivery of 02/19/2025, by Ultrasound who presents for a routine visit. She denies vaginal bleeding, leakage of fluid, decreased movements, or contractions. OB History Para Term AB Living 1 SAB IAB Ectopic Multiple Live Births # Outcome Date GA Lbr Nolberto/2nd Weight Sex Type Anes PTL Lv 1 Current Her is complicated by: Marijuana use, transfer of care, moved here at almost 12 weeks. Objective Physical Exam weight: 230 lb Expected Total Weight Gain: 11 lb-19 lb Pregravid BMI: 33.04 Urine protein negative Urine glucose negative Assessment/Plan Diagnoses and all orders for this visit: Screening for iron deficiency anemia - CBC; Future Screening for diabetes mellitus (DM) - GLUCOSE, GESTATIONAL SCREEN (50G)-135 CUTOFF; Future related condition in third trimester - US OB follow up transabdominal approach; Future Continue vitamin. Labs reviewed. GBS taken. Expected mode of delivery Patient states she is actively smoking marijuana She c/o legs swollen, dependent edema noted, non pitting, she states I need to drink more water. Encouraged patient to drink 5-8 bottles of water per day and also elevate her feet over the back of the couch so her feet are high than the level of her heart. I also did discuss the symptoms of preeclampsia Follow up in 1 week for a routine visit. documented in this encounter [facility] 11-03-2024 History of Presen t illness Narrative Subjective No chief complaint on file. Glenna Mckeon is a 29 y.o. at 24w4d with a working estimated date of delivery of 02/19/2025, by Ultrasound who presents for a routine visit. She denies vaginal bleeding, leakage of fluid, decreased movements, or contractions. OB History Para Term AB Living 1 SAB IAB Ectopic Multiple Live Births # Outcome Date GA Lbr Nolberto/2nd Weight Sex Type Anes PTL Lv 1 Current Her is complicated by: h/o trichomoniasis The following portions of the chart were reviewed this encounter and updated as appropriate: Objective Physical Exam weight: 220 lb Expected Total Weight Gain: 11 lb-19 lb Pregravid BMI: 33.04 BP: 112/70 Urine protein-negative Urine glucose-negative Labs: reviewed Imaging Assessment/Plan Diagnoses and all orders for this visit: Encounter for care of first , second trimester Hx of trichomoniasis - TRICHOMONAS VAGINALIS RNA QUALITATIVE TMA,MALES; Future Continue vitamin. Labs reviewed. Rhogam Follow up in 4 weeks for a routine visit. Patient was in the ER yesterday for a sore on her bottom and went to [facility], she states she got mad and left. She then went to another ER and they examined her and lanced the abscess and drained it and it feels so much better. She did receive antibiotics at [facility] and she is currently taking those. The area was on her right side upper inner leg. No c/o today. States it feels much better since lancing. documented in this encounter [facility] 10-07-2024 History of Presen t illness Narrative Subjective No chief complaint on file. Glenna Mckeon is a 29 y.o. at 20w5d with a working estimated date of delivery of 02/19/2025, by Ultrasound who presents for a routine visit. She denies vaginal bleeding, leakage of fluid, decreased movements, or contractions. Her is complicated by: The following portions of the chart were reviewed this encounter and updated as appropriate: Objective Physical Exam weight: 215 lb 9.6 oz Expected Total Weight Gain: 11 lb-19 lb Pregravid BMI: 33.04 BP: 110/68 Labs HEMOGLOBIN Date Value Ref Range Status 07/29/2024 13.0 11.7 - 15.5 g/dL Final HEMATOCRIT Date Value Ref Range Status 07/29/2024 38.6 35.0 - 45.0 % Final Urine protein- negative Urine glucose- negative Imaging Assessment/Plan Diagnoses and all orders for this visit: Encounter for care of first , second trimester Continue vitamin. Labs reviewed. Rhogam needed order to be sent to [place] GTT at 28 weeks Follow up in 4 weeks for a routine visit. documented in this encounter [facility] 09-09-2024 History of Presen t illness Narrative Subjective No chief complaint on file. Glenna Mckeon is a 29 y.o. at 16w5d with a working estimated date of delivery of 02/19/2025, by Ultrasound who presents for a routine visit. She denies vaginal bleeding, leakage of fluid, decreased movements, or contractions. OB History Para Term AB Living 1 SAB IAB Ectopic Multiple Live Births # Outcome Date GA Lbr Nolberto/2nd Weight Sex Type Anes PTL Lv 1 Current Her is complicated by: Rh negative The following portions of the chart were reviewed this encounter and updated as appropriate: Objective Physical Exam weight: 211 lb Expected Total Weight Gain: 11 lb-19 lb Pregravid BMI: 33.04 Urine protein-negative Urine glucose-negative Labs: reviewed Imaging Assessment/Plan Diagnoses and all orders for this visit: Nausea/vomiting in - ondansetron ODT (Zofran-ODT) 8 MG disintegrating tablet; Take 1 tablet (8 mg) by mouth every 8 (eight) hours if needed for nausea or vomiting related condition in second trimester - US OB ANATOMY SINGLE W US OB CERVICAL LENGTH; Future - ondansetron ODT (Zofran-ODT) 8 MG disintegrating tablet; Take 1 tablet (8 mg) by mouth every 8 (eight) hours if needed for nausea or vomiting Continue vitamin. Labs reviewed. Rhogam needed GTT at 28 weeks Follow up in 2 weeks for a routine visit. documented in this encounter [facility] 08-11-2024 Telephone encount er Note Pt is requsting a proof of letter she said you had a copy of it? I did not see in her scanned letters [facility] 08-11-2024 Miscellaneous Notes Formattin g of this note might be different from the original. Pt is requsting a proof of letter she said you had a copy of it? I did not see in her scanned letters documented in this encounter [facility] 07-29-2024 History of Presen t illness Narrative Subjective Glenna Mckeon is a 29 y.o. at Unknown with a working estimated date of delivery of Not found. who presents for an initial visit. This is planned. 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 OB History Para Term AB Living 1 SAB IAB Ectopic Multiple Live Births # Outcome Date GA Lbr Nolberto/2nd Weight Sex Type Anes PTL Lv 1 Current Her is complicated by: nausea and vomting, states she has a history of infertility, [place] by Gynecology History Last Pap pt is not sure The following portions of the chart were reviewed this encounter and updated as appropriate: Review of Systems Objective Physical Exam Expected Total Weight Gain: Could not be calculated Pregravid BMI: Could not be calculated Urine protein Urine glucose Labs Need to get records and US report from [place] so we can verify gestational age. Assessment/Plan Diagnoses and all orders for this visit: Encounter for care of first , first trimester examination or test, positive result - Hepatitis B surface antigen; Future - Rubella antibody, IgG; Future - CBC; Future - Antibody screen; Future - RPR; Future - Hemoglobin A1c; Future - TSH W/REFLEX TO FT4; Future - HIV-1 and HIV-2 antibodies; Future - ABO/Rh; Future - DRUG TOX MONITORIGN 6 W/ CONF,URINE; Future - Hepatitis C antibody - Urine culture; Future - URINALYSIS MICROSCOPIC; Future - C. trachomatis / N. gonorrhoeae, DNA probe; Future Nausea and vomiting during Blue education folder given. Patient educated on safe medication list. Genetic testing information given. Discussed the do's and don'ts in the blue folder. We discussed labs and what we draw and what we are testing for. Patient is also informed that we do a urine drug test. Patient also given office phone number and [facility] number to call in case of an emergency or after hours needs. PVU and all questions answered. We did discuss place of delivery. Patient should plan to go to [facility] for all services unless an emergency and they need to go to the closest ER. We can make other arrangements possibly if patient would like to deliver at another facility but I did explain I am now at [place] 100% of the time and would like to do all deliveries there. documented in this encounter [facility] 02-21-2022 Evaluation note Encounter Date Diagnosis Assessment Notes Feb, Injury (ICD-10 - T14.90XA) Feb, Contusion of right clavicle, initial encounter (ICD-10 - T14.8XXA) XR images and final report reviewed, no acute bony abnormalities noted. Encouraged RICE therapy discussed- rest extremity, avoid excessive or strenuous activity, complete activity as tolerated; ice area for 15-20 minutes at a time multiple times a day, ensure thin cloth barrier between skin and ice. Advised patient to use OTC NSAIDs/Tylenol as directed as needed for discomfort. Instructed patient to follow up with PCP or ortho if sx do not improve in the next 5-7 days. Immediate eval by ER for warning s/sx as discussed. Patient verbalizes understanding and is agreeable to treatment plan [facility] Other Evaluation noteNo assessment information available [facility] Work Phone: Evaluation note* Diagnosis Encounter for care of first , first trimester- Primary examination or test, positive result Nausea and vomiting during [facility] Diagnosis Encounter for care of first , second trimester- Primary [facility]* Diagnosis Nausea/vomiting in - Primary Unspecified vomiting of , unspecified as to episode of care related condition in second trimester [facility] Diagnosis Encounter for care of first , second trimester- Primary Hx of trichomoniasis [facility]* Diagnosis Screening for iron deficiency anemia Screening for diabetes mellitus (DM) Screening for diabetes mellitus related condition in third trimester [facility] Diagnosis Encounter for care of first , third trimester- Primary [facility]* Diagnosis screening for streptococcus B screening for Streptococcus B Screening for cervical cancer Screening for malignant neoplasm of the cervix [facility] Diagnosis Asymptomatic microscopic hematuria- Primary Encounter for care of first , third trimester Hx of trichomoniasis documented in this encounter [facility] Summary Purpose Family History No Family History Records FoundNo Family History Records FoundNo Family History Records FoundNo Family History Records FoundNo Family History Records FoundNo Family History Records FoundNo Family History Records Found Advance Directives No Advanced Directives Records Found Advance Directive Response Recorded Date/ Time Advance Directives No February 21 11:47am Chief Complaint and Reason for Visit Chief Complaint T14.90XA Additional Source Comments INFORMATION SOURCE (unrecogn ized section and content) DATE CREATED AUTHOR 04/04/2018 [facility] DATE CREATED AUTHOR AUTHOR'S ORGANIZ ATION 07/20/2018 Denice Rae DATE CREATED AUTHOR AUTHOR'S ORGANIZ ATION 04/22/2020 [facility] DATE CREATED AUTHOR AUTHOR'S ORGANIZ ATION 12/17/2024 [facility] DATE CREATED AUTHOR AUTHOR'S ORGANIZ ATION 01/08/2025 [facility] DATE CREATED AUTHOR AUTHOR'S ORGANIZ ATION 02/01/2025 [facility] DATE CREATED AUTHOR AUTHOR'S ORGANIZ ATION 02/08/2025 [facility] EPIC Care Teams (unrecognized sec tion and content) Team Status: Inactive Member Role Status Dates Amrita Martin APRN Attending Provider Active PHYSICIAN NO FAMILY Primary Care Provider Active Team Status: Active Member Role Status Dates PHYSICIAN NO FAMILY Primary Care Provider Active Goals (unrecognized section and content) Goals may be documented in a n alternate sectionNo Information REASON FOR VISIT (unrecogniz ed section and content) Reason Comments Initial Visit FOR RECORDS PERTAINING TO PATIENTS WHO ARE OR HAVE BEEN ENROLLED IN A CHEMICAL DEPENDENCY/SUBSTANCEABUSE PROGRAM, SOME INFORMATION MAY BE OMITTED. This clinical summary was aggregated from multiple sources. Caution should be exercised in using it in the provision of clinical care. This summary normalizes information from multiple sources, and as a consequence, information in this document may materially change the coding, format and clinical context of patient data. In addition, data may be omitted in some cases. CLINICAL DECISIONS SHOULD BE BASED ON THE PRIMARY CLINICAL RECORDS. [facility] [employer] [facility]. provides no warranty or guarantee of the accuracy or completeness of information in this document.
[2025-02-10 01:02] VITALS: BP 116/80; PULSE 96
[2025-02-10 01:24] LABS: Bilirubin Urine NEGATIVE (NEGATIVE); Blood Urine NEGATIVE (NEGATIVE); Clarity Urine CLEAR (CLEAR); Color Urine LT. YELLOW (YELLOW); Glucose Urine UA NEGATIVE (NEGATIVE); Ketones Urine NEGATIVE (NEGATIVE); Leukocyte Esterase Urine MODERATE (NEGATIVE); Nitrite Urine NEGATIVE (NEGATIVE); Protein Urine NEGATIVE (NEG/TRACE); Urobilinogen Urine 0.2 EU/dL (0.2-1.0)
[2025-02-10 01:25] LABS: Urine Microscopic Indicated YES
[2025-02-10 01:34] LABS: Bacteria Urine SMALL #/HPF (NONE SEEN); Cast Seen? NONE SEEN #/LPF (NONE SEEN); Crystals Seen? None Seen #/HPF (None Seen); Mucus Urine NONE SEEN (NONE SEEN); RBC Urine 0-2 #/HPF (0-2); Squamous Epithelial Cell Urine MODERATE #/LPF (NONE/RARE); Urine Culture Indicated YES-LC
== END 2025-02-10 01:45 | disposition home or self-care (01) ==
PROVIDERS: Admitting Provider Midwife; Visit Provider Midwife
DX: O36.8130 Decreased fetal movements, third trimester, not applicable or unspecified (principal); Z3A.38 38 weeks gestation of pregnancy
CPT/HCPCS: 59025; 81001; 87086; G0378; G0379

== ENCOUNTER 2025-02-17 16:10 | Observation (INO) | payer OTHER, SELFPAY ==
--- OUTSIDE RECORDS SUMMARY | 2023-12-31 05:30 | XMS_ITS ---
Author Organization [facility] vices Address [address] [place] [phone] Care Team Providers Care General Internist And Physician Leader Name Role Phone Estefania Naranjo Unavailable [phone] REASON FOR VISIT Recall (A) 28 Social History Sex Assigned At : Social History Observation Description Sex Assigned At Female Encounters Encounter Location Date Provider Diagnosis [facility] [address], [place] [id number] 12/31/2023 Estefania Naranjo Plan Of Treatment No Information Progress Notes * MIKE Lisa ADOB:1995 (30 yo F)Acc No.[id number]:12/31/2023 Patient: Lisa LANDA Provider: Trini Naranjo DDS :1995 A ge:28 Y S ex:Female Date:12/31/2023 Address:[address] [place], [place] [id number] Subjective: * Chief Complaints: * 1 . Recall (A) 28. * Medical History: Objective: * Vitals: Assessment: Plan: * Treatment: * Billing Information: * Visit Code: * Procedure Codes: * Electronic signature of Nandini Naranjo DDS on 02/19/2025 at 03:38 PM EDT Sign off status: Pending * Provider: Trini Naranjo DDS Date: 0 12/31/2023 Generated for Printi ng/Faxing/eTransmitting on: 0 02/19/2025 03:38 PM EDT
--- OUTSIDE RECORDS SUMMARY | 2025-02-11 13:30 | XMS_ITS | Encounter Summary ---
Author Organization [facility] Address [address] [place] [address] Care Team Providers Care Fire Prevention Inspector Name Role Phone Unavailable Primary Care Provider Unavailabl e Encounter Details Date Type Department Care Team (Latest Contact Info) Description 02/11/2025 1:30 PM EDT Routine [facility] [address] [place] [address] Kayla Singletary CNM [address] [place] [address] Encounter for care of first , third trimester ([facility]) (Primary Dx); Hx of trichomoniasis Social History Tobacco Use Types Packs/Day Years Used Date Smoking Tobacco: Every Day Cigarettes Smokeless Tobacco: Never Alcohol Use Standard Drinks/Week Comments Not Currently 0 (1 standard drink = 0.6 oz pur e alcohol) Estimated Date of Delivery Comme nts Yes 02/19/2025 Based on Ultraso und Sex and Gender Information Value Date Recorded Sex Assigned at Not on file Legal Sex Female 1:53 PM EDT Gender Identity Not on file Sexual Orientation Not on file documented as of this encounter Last Filed Vital Signs Vital Sign Reading Time Taken Comments Blood Pressure 118/72 02/11/2025 1:43 PM EDT Pulse - - Temperature - - Respiratory Rate - - Oxygen Saturation - - Inhaled Oxygen Concentration - - Weight 106 kg (233 lb) 02/11/2025 1:43 PM EDT Height - - Body Mass Index 36.49 04/12/2023 2:17 PM EDT documented in this encounter Progress Notes * Kayla Singletary CNM - 02/11/2025 1:30 PM EDT Subjective No chief complaint on file. Lisa Ferguson is a 30 y.o. at 38w6d with a working estimated date of delivery of 02/19/2025, by Ultrasound who presents for a routine visit. She denies vaginal bleeding, leakage of fluid, decreased movements, or contractions. OB History Para Term AB Living 1 SAB IAB Ectopic Multiple Live Births # Outcome Date GA Lbr Nolberto/2nd Weight Sex Type Anes PTL Lv 1 Current Her is complicated by: Marijuana use Objective Physical Exam Weight: 233 lb Expected Total Weight Gain: 11 lb-19 lb Pregravid BMI: 33.04 BP: 118/72 Urine protein-negative Urine glucose-negative Assessment/Plan Diagnoses and all orders for this visit: Encounter for care of first , third trimester Hx of trichomoniasis Patient is scheduled for elective IOL next week, February at [facility]. We discussed elective induction and risks, benefits and patient would like to proceed. Instructions given to patient and consent form obtained. All questions answered and consent sent to [facility] Continue vitamin. Labs reviewed. GBS negative Expected mode of delivery vaginal Follow up in 1 week for a routine visit. documented in this encounter Plan of Treatment Not on file documented as of this encounter Visit Diagnoses Diagnosis Encounter for care of first , third trimester ([facility] Primary Hx of trichomoniasis documented in this encounter
[2025-02-17] VITALS (8 sets, daily range): BP systolic 93–121; BP diastolic 51–77; PULSE 75–93
[2025-02-17 18:44] LABS: Hemoglobin 11.8 g/dL (12.0-16.0); Mean Corpuscular HGB Conc 34.7 g/dL (29.9-35.2); Mean Corpuscular Hemoglobin 32.7 pg (26.7-34.0); Mean Corpuscular Volume 94.2 fL (81.0-99.0); Mean Platelet Volume 11.9 fL (9.5-13.5); Platelet Count 181 10^3/uL (150-450); Red Blood Count 3.61 10^6/uL (4.20-5.40); Red Cell Distribution Width 14.6 % (11.0-15.0); White Blood Count 10.2 10^3/uL (4.0-11.0)
[2025-02-17 18:58] LABS: Amphetamine Screen Urine NEGATIVE (NEGATIVE); Barbiturates Screen Urine NEGATIVE (NEGATIVE); Benzodiazepines Screen Urine NEGATIVE (NEGATIVE); Buprenorphine Screen Urine NEGATIVE (NEGATIVE); Cannabinoid Screen Urine NEGATIVE (NEGATIVE); Cocaine Screen Urine NEGATIVE (NEGATIVE); Methadone Screen Urine NEGATIVE (NEGATIVE); Methamphetamines Screen Urine NEGATIVE (NEGATIVE); Opiate Screen Urine NEGATIVE (NEGATIVE); Oxycodone Screen Urine NEGATIVE (NEGATIVE); Phencyclidine Screen Urine NEGATIVE (NEGATIVE); Tricyclic Antidepressant Urine NEGATIVE (NEGATIVE)
[2025-02-17] MEDS: DINOPROSTONE 10 MG VAG INSERT.ER VAGINAL (19:58)
--- NOTE | 2025-02-17 20:26 | PM.OBHP ---
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 Labs Blood type: A (-) negative Rubella: nonimmune RPR/VDLR: nonreactive GBS status: negative HBsAG: negative Review of Systems ROS Status of ROS: 10 or more systems reviewed and unremarkable except as noted in history and below Meds Home Medications and Allergies Allergies Allergy/AdvReac Type Severity Reaction Status Date / Time pomegranate Allergy Intermediate Cramping Verified 02/17/25 18:44 of the Muscles Exam Constitutional Vital Signs, click to edit/add: Last Vital Signs Pulse 88 02/17/25 20:20 BP 111/65 02/17/25 20:20 Documenting provider has reviewed patient's vital signs: yes Common normals: no apparent distress General appearance: cooperative, comfortable and well kempt Orientation/consciousness: Yes awake, Yes oriented to person, Yes oriented to place and Yes oriented to time HENMT Common normals: normocephalic Face and sinus: normal facial exam Eye Common normals: EOMs intact bilaterally General eye: normal appearance of both eyes Neck & C-Spine Common normals: full ROM General: normal visual inspection Lymph Lymphatic: no lymphadenopathy noted Chest Common normals: inspection of chest normal Respiratory Common normals: normal respiratory effort, no retractions, no use of accessory muscles, clear to auscultation bilaterally and percussion normal Effort & inspection: able to speak in complete sentences Auscultation: clear to auscultation bilaterally Cardio Common normals: regular rate and regular rhythm Rate: regular rate Rhythm: regular rhythm GI Common normals: Normal to inspection, nondistended, normoactive bowel sounds present, soft to palpation and non-tender Inspection: normal to inspection Auscultation: normoactive bowel sounds Palpation: soft Percussion: normal to percussion Common normals: no CVA tenderness Back & Pelvis Common normals: no CVA tenderness Thoracic spine/upper back: normal to inspection Lumbar spine/lower back: normal to inspection Extremity Common normals: normal to inspection Neuro Common normals: oriented x3 Sensorium/orientation: awake, alert, oriented to person, oriented to place and oriented to time Psych Common normals: mental status grossly normal, thought process normal, cooperative, affect normal, speech normal, activity/motor behavior normal, denies hallucinations, denies homicidal ideation and denies suicidal ideation Appearance: grossly normal Attitude: calm Activity/motor behavior: appropriate eye contact Speech: normal speech Thought process: normal thought process Thought content: normal thought content Attention/concentration: attention grossly intact Insight: insight good Results Labs Labs: Short CBC 02/17/25 Range/Units 16:55 WBC 10.2 (4.0-11.0) 10^3/uL Hgb 11.8 L (12.0-16.0) g/dL Hct 34.0 L (36.0-48.0) % Plt Count 181 (150-450) 10^3/uL OB - A/P Assessment and Plan (1) Term :
[2025-02-18] VITALS (7 sets, daily range): BP systolic 82–128; BP diastolic 52–75; PULSE 71–93; TEMP 35.7–36.8
--- OUTSIDE RECORDS SUMMARY | 2025-02-19 15:38 | XMS_ITS | Encounter Summary ---
Author Organization [facility] Address [address] [place] [address] Care Team Providers Care Head Of Marketing Name Role Phone Unavailable Primary Care Provider Unavailabl e Encounter Details Date Type Department Care Team (Late st Contact Info) Description 02/11/2025 Bamboo flowsheet [facility] [address] [place] [address] Kayla Singletary, CNM [address] [place], [place] [id number] Social History Tobacco Use Types Packs/Day Years [...] on file documented as of this encounter Plan of Treatment Not on file documented as of this encounter Visit Diagnoses Not on filedocumented in this encounter
--- OUTSIDE RECORDS SUMMARY | 2025-02-19 15:38 | XMS_ITS | Patient Health Record ---
Author Organization [facility] Address [address] [place], [place] [id number] Care Team Providers Care Inspector Brake Lining Name Role Phone Estefania Naranjo Unavailable [phone] Allergies Allergen (clinical drug ingredient) Drug/Non Drug Allergy documented on EMR Reaction Allergy Type Onset Date Status Allergies Reconciled (uncoded) Unknown Allergy Active acetaminophen / hydrocodone HYDROcodone-Acetami nophen Anaphylaxis Drug Allergy 06/20/2019 Active lamotrigine LaMICtal Nausea Drug Allergy 06/20/2019 Acti ve Reason For Referral No Information Social History Sex Assigned At : Social History Observation Description Sex Assigned At Female Problems Problem Type SNOMED Code ICD Code Onset Dates Problem Status W/U Status Risk Notes Problem 803240231 Impacted third molar tooth (K01.1) Active confirmed Problem Heartburn (44600023) Heartburn (R12) Active confirmed Comment:Tria l of PRN PPI to help with the symptoms. Discussed with patient at length: PVU., Problem Arthralgia of the ankle and/or foot (057581401) RIGHT ANKLE PAIN (M25.571) Active confirmed Comment:Deanne ent denied trial of NSAID or any other anti-inflamm atory because she has severe heartburn. She will continue Tylenol for now. Repeat Xray and start PT. IF no relief - then patient will need MRI. She wants to wait for ortho referral for now. Continue to monitor., Problem Depression screening (867066520) Screening for depression (Z13.31) Active confirmed Description: Depression screening Problem Mixed anxiety and depressive disorder (724869492) Anxiety and depression (F41.9) Active confirmed Problem Exposure to sexually transmissible disorder (event) (648206049) STD exposure (Z20.2) Active confirmed Comment:1. Hx of possible STD exposure. Aptima, syphilis and HIV testing sent today 2. Call w/ results., Problem Bipolar disorder (65282120) Bipolar affective (F31.9) Active confirmed Plan Of Treatment No Information Insurance Providers Payer Name Payer Address Payer Phone Subscriber Number Group Number Insured Name Patient Relationship to Insured Coverage Start Date Coverage End Date zzDUnited -Denta[employer] est [facility] [address] [place] [address] [id number] Lisa Ferguson Self - patient is the insured 2 DMedicaid CFC after [facility] [address] [place], [place] [id number] Lisa Ferguson Self - patient is the insured 2 Medical (General) History Medical History History ICD Code DEPRESSION, ProblemStatus: Active, , No Known Problems, ProblemStatus: Inacti ve, , Problems Reconciled, ProblemStatus: Acti ve, , Surgical History Surgery Date(Month/Year) tooth surgeries, ProblemStatus: Active, : In-office,
--- OUTSIDE RECORDS SUMMARY | 2025-02-19 15:38 | XMS_ITS | Encounter Summary ---
Author Organization [facility] Address [address] [place] [address] Care Team Providers Care Beef Selector Name Role Phone Unavailable Primary Care Provider Unavailabl e Encounter Details Date Type Department Care Team (Late st Contact Info) Description 02/04/2025 Results Follow-Up [facility] [address] [place] [address] Tara Carr MA Social History Tobacco Use Types Packs/Day Years [...]
--- OUTSIDE RECORDS SUMMARY | 2025-02-19 15:38 | XMS_ITS | Encounter Summary ---
Author Organization [facility] Address [id number] [address] [place] [address] Care Team Providers Care Notch Grinder Name Role Phone No Pcp, No Pcp Primary Care Provider Unavailabl e Encounter Details Date Type Department Care Team (Late st Contact Info) Description 07/25/2021 Telephone [facility] [address] [place] [address] Archana Ro MA Social History Tobacco Use Types Packs/Day Years Used Date Smoking Tobacco: Every Day Cigarettes 1 6 Smokeless Tobacco: Never Alcohol Use Standard Drinks/Week Comments Yes 0 (1 standard drink = 0.6 oz pur e alcohol) Rarely Childcare Answer Date Recorded Childcare Unknown 02/12/2019 Employment Answer Date Recorded Employment Unknown 02/12/2019 Purpose - Life Answer Date Recorded Purpose and direction in life Unknown Comments No Sex and Gender Information Value Date Recorded Sex Assigned at Not on file Legal Sex Female 11:50 AM EDT Gender Identity Not on file Sexual Orientation Not on file COVID-19 Exposure Response Date Recorded In the last month, have you been in contact with someone who was confirmed or suspected to have Coronavirus / COVID-19? No / Unsure 07/25/2021 9:14 AM EST documented as of this encounter Miscellaneous Notes * Telephone Encounter - Archana Ro MA - 07/25/2021 10:03 AM EST [facility] PROCEDURE Aug @ 11:30AM WITH DR. NICKI DO [facility] FOR PATIENT TO RETURN CALL PATIENT RETURNED CALL, PATIENT AWARE OF DATE AND TIME documented in this encounter Plan of Treatment Not on file documented as of this encounter Visit Diagnoses Not on filedocumented in this encounter Additional Health Concerns Infection Onset Date Last Indicated Resolved Time COVID-19 Rule-Out 09/12/2021 09/12/2021 09/12/2021 4:08 AM EST COVID-19 Rule-Out 09/12/2021 09/12/2021 09/12/2021 4:36 AM EST COVID-19 Rule-Out 10/12/2021 10/12/2021 10/12/2021 10:53 PM EST COVID-19 Rule-Out 04/28/2022 04/28/2022 04/28/2022 1:36 PM EDT Respiratory Rule-Out 01/31/2025 01/31/2025 025 1:23 PM EDT Assessment Noted Time PHQ-9 Depression Total Score: 7 02/07/20 17 2:00 PM EDT A Body Mass Index follow-up plan has been documented for the patient 05/24/2021 7:10 PM EDT documented as of this encounter Care Teams Notch Grinder Relationship Specialty Start Date End Date No Pcp, No Pcp YISEL Lawrence [id number] PCP - General Family Medicine 01/04/19 documented as of this encounter
--- OUTSIDE RECORDS SUMMARY | 2025-02-19 15:38 | XMS_ITS | Clinical Summary ---
Author Organization [facility] Address [address] [place] [address] Care Team Providers Care Control Technician Name Role Phone Unavailable Primary Care Provider Unavailabl e Allergies Active Allergy Reactions Criticality Noted Date Comments Fluoxetine Nausea And Vomiting, GI intolerance Low 02/08/2017 Hydrocodone-Acetaminophen Anaphylaxis,Nausea Only High 08/27/2016 Lamotrigine Nausea Only 01/31/2017 Medications multivitamin () 27-0.8 MG tabletIndication s: examination or test, positive result ([facility]) Take 1 tablet by mouth Daily 30 tablet 11 5 Active cephalexin (Keflex) 500 MG capsuleIndicatio ns:Asymptomatic microscopic hematuria Take 1 capsule (500 mg) by mouth in the morning and 1 capsule (500 mg) in the evening and 1 capsule (500 mg) before bedtime. Do all this for 10 days. 30 capsule 5 02/15/20 25 Encounters Date Type Department Care Team Description 02/17/2025 Clinisync Result Encounter [facility] External Department Unsolicited Kayla Singletary CNM 02/11/2025 1:30 PM EDT Routine [facility] [address] [place] [address] Kayla Singletary CNM Encounter for care of first , third trimester ([facility]) (Primary Dx); Hx of trichomoniasis 02/11/2025 Bamboo flowsheet [facility] [address] [place] [address] Kayla Singletary CNM 02/10/2025 Clinisync Result Encounter NOMS External Department Unsolicited Kayla Singletary CNM 02/09/2025 Telephone [facility] [address] [facility] [place] [address] Kayla Singletary CNM 02/04/2025 1:30 PM EDT Routine [facility] [address] [facility] [place] [address] Kayla Singletary CNM Asymptomatic microscopic hematuria (Primary Dx); Encounter for care of first , third trimester ([facility]); Hx of trichomoniasis 02/04/2025 Results Follow-Up [facility] [address] [facility] [place] [address] Tara Carr MA 02/04/2025 Bamboo flowsheet [facility] [address] [facility] [place] [address] Kayla Singletary CNM 01/27/2025 3:30 PM EDT Routine [facility] [address] [facility] [place] [address] Kayla Singletary CNM screening for streptococcus B ([facility]); Screening for cervical cancer 01/27/2025 Bamboo flowsheet [facility] [address] [facility] [place] [address] Kayla Singletary CNM 01/12/2025 2:30 PM EDT Routine [facility] [address] [facility] [place] [address] Kayla Singletary CNM Encounter for care of first , third trimester ([facility]) (Primary Dx) 01/12/2025 Bamboo flowsheet [facility] [address] [facility] [place] [address] Kayla Singletary CNM 12/29/2024 2:30 PM EDT Routine [facility] [address] [facility] [place] [address] Kayla Singletary CNM Encounter for care of first , third trimester ([facility]) (Primary Dx); Elevated glucose tolerance test 12/29/2024 Bamboo flowsheet [facility] [address] [facility] [place] [address] Kayla Singletary CNM 12/15/2024 3:30 PM EDT Ancillary Procedure [facility] ULTRASOUND [address] [place] [id number] related condition in third trimester ([facility]) 12/15/2024 Travel 12/01/2024 1:30 PM EDT Initial [facility] [address] [facility] [place] [address] Kayla Singletary CNM GA: 28w4d 12/01/2024 Bamboo flowsheet [facility] [address] [facility] [place] [address] Kayla Singletary CNM from Last 3 Months Family History Medical History Relation Name Comments Diabetes Mother Fibromyalgia Mother Hypertension Mother Relation Name Status Comments Father Alive Mother Alive Social History Tobacco Use Types Packs/Day Years Used Date Smoking Tobacco: Every Day Cigarettes Smokeless Tobacco: Never Tobacco Cessation:Ready to Q uit: Not Asked; Counseling Given: Not Answered Alcohol Use Standard Drinks/Week Comments Not Currently 0 (1 standard drink = 0.6 oz pur e alcohol) Estimated Date of Delivery Comme nts Yes 02/19/2025 Based on Ultraso und Sex and Gender Information Value Date Recorded Sex Assigned at Not on file Legal Sex Female 1:53 PM EDT Gender Identity Not on file Sexual Orientation Not on file Last Filed Vital Signs Vital Sign Reading Time Taken Comments Blood Pressure 118/72 02/11/2025 1:43 PM EDT Pulse 54 04/12/2023 2:17 PM EDT Temperature 36.7 C (98 F) 04/12/2023 2:17 PM EDT Respiratory Rate - - Oxygen Saturation 98% 04/12/2023 2:17 PM EDT Inhaled Oxygen Concentration - - Weight 106 kg (233 lb) 02/11/2025 1:43 PM EDT Height 170.2 cm (5' 7 ) 04/12/2023 2:17 PM EDT Body Mass Index 36.49 04/12/2023 2:17 PM EDT Plan of Treatment Health Maintenance Due Date Last Done Comments Pap Smear 01/17/2016 Cervical Cancer Screening 2025 HPV/Cotest 2025 Influenza Vaccine (Season Ended) 2025 Procedures Procedure Name Priority Date/Time Associated Diagnosis Comments HMHP CBC WITH PLATELET NO DIFFERENTIAL Routine 02/17/2025 4:55 PM EDT [facility] DRUG SCREEN RAPID (URINE) Routine 02/17/2025 4:30 PM EDT URINE CULTURE, ROUTINE Routine 1:00 AM EDT [facility] URINE MICROSCOPIC ONLY Routine 02/10/2025 1:00 AM EDT [facility] UA (CLEAN/CATCH) CERAMIC PAINTER/MICRO IF IND. Routine 02/10/2025 1:00 AM EDT THINPREP IMAGING PAP AND HPV DNA REFLEX HPV 16,18 Routine 01/27/2025 4:56 PM EDT Screening for cervical cancer STREPTOCCOUS, GROUP B CULTURE Routine 01/27/2025 4:55 PM EDT screening for streptococcus B ([facility]) GLUCOSE TOLERANCE TEST, GESTATIONAL,4SPEC(100G ) Routine 01/05/2025 9:31 AM EDT Elevated glucose tolerance test US OB FOLLOW UP TRANSABDOMINAL APPROACH Routine 12/15/2024 4:17 PM EDT related condition in third trimester ([facility]) GLUCOSE, GESTATIONAL SCREEN (50G)-135 CUTOFF Routine 12/01/2024 2:02 PM EDT Screening for diabetes mellitus (DM) CBC Routine 12/01/2024 2:02 PM EDT Screening for iron deficiency anemia from Last 3 Months Results * (ABNORMAL) HMHP CBC WITH PLATELET NO DIFFERENTIAL (02/17/2025 4:55 PM EDT) TB WBC 10.2 4.0 - 11.0 10 3/uL TBH TBH RBC 3.61(L) 4.20 - 5.40 10 6/uL TBH TBH HGB 11.8(L) 12.0 - 16.0 g/dL TBH TBH HCT 34.0(L) 36.0 - 48.0 % TBH TBH MCV 94.2 81.0 - 99.0 fL TBH TBH MCH 32.7 26.7 - 34.0 pg TBH TBH MCHC 34.7 29.9 - 35.2 g/dL TBH TBH RDW 14.6 11.0 - 15.0 % TBH TBH PLT 181 150 - 450 10 3/uL TBH TBH MPV 11.9 9.5 - 13.5 fL TBH 02/17/2025 4:55 PM EDT 02/17/2025 6:41 PM EDT Narrative [facility] - 02/17/2025 6:45 PM EDT Kayla LORA [facility] Final Result [facility] * TB DRUG SCREEN RAPID (URINE) (02/17/2025 4:30 PM EDT) CANNABINOID SCREEN URINE NEGATIVE NEGATIVE TBH PHENCYCLIDINE SCREEN URINE NEGATIVE NEGATIVE TBH COCAINE SCREEN URINE NEGATIVE NEGATIVE TBH METHAMPHETAMINES SCREEN URINE NEGATIVE NEGATIVE TBH OPIATE SCREEN URINE NEGATIVE NEGATIVE TBH AMPHETAMINE SCREEN URINE NEGATIVE NEGATIVE TBH BENZODIAZEPINES SCREEN URINE NEGATIVE NEGATIVE TBH TRICYCLIC ANTIDEPRESSANT URINE NEGATIVE NEGATIVE TBH METHADONE SCREEN URINE NEGATIVE NEGATIVE TBH BARBITURATES SCREEN URINE NEGATIVE NEGATIVE TBH OXYCODONE SCREEN URINE NEGATIVE NEGATIVE TBH BUPRENORPHINE SCREEN URINE NEGATIVE NEGATIVE TBH Comment: DRUG CLASS TEST SYSTEM CUT-OFF CONCENTRATIONS ARE FOLLOWS: AMP (Amphetamine): 500 ng/mL BAR (Barbiturates): 200 ng/mL BZO (Benzodiazepines): 150 ng/mL BUP (Buprenorphine): 10 ng/mL [place] (Cocaine): 150 ng/mL mAMP (Methamphetamine): 500 ng/mL MTD (Methadone): 200 ng/mL OPI (Opiates): 100 ng/mL OXY (Oxycodone): 100 ng/mL PCP (Phencyclidine): 25 ng/mL THC (Cannabinoids): 50 ng/mL TCA (Trycyclic Antidepressants): 300 ng/mL 02/17/2025 4:30 PM EDT 02/17/2025 6:41 PM EDT Narrative [facility] - 02/17/2025 6:58 PM EDT Kayla LORA CLINISYNC Final Result Performing Organization Address City[facility]/ZIP Co de Phone Number [facility] * URINE CULTURE, ROUTINE (02/10/2025 1:00 AM EDT) URINE CULTURE, ROUTINE Urine Culture, Routine TBH URINE CULTURE, ROUTINE Mixed urogenital natalie TBH URINE CULTURE, ROUTINE Less than 10,000 colonies/mL TB URINE CULTURE, ROUTINE Performed at: [facility] URINE CULTURE, ROUTINE [address] [place] [id number] [facility] URINE CULTURE, ROUTINE Machine Fur Cleaner: Isaac Stockton PhD, Phone: [phone] [facility] 02/10/2025 1:00 AM EDT 02/10/2025 1:15 AM EDT [facility]ative [facility] - 02/11/2025 9:08 PM EDT Kayla LORA LAB BLOOD ORDERABLES Final R esult Performing Organization Address [facility]/ZIP Co de Phone Number [facility] TB * (ABNORMAL) TB URINE MICROSCOPIC ONLY (02/10/2025 1:00 AM EDT) TBH WBC 2-5(A) NONE SEEN #/HPF TBH TBH RBC 0-2 0 - 2 #/HPF TBH BACTERIA URINE SMALL(A) NONE SEEN #/HPF TBH MUCUS URINE NONE SEEN NONE SEEN TBH SQUAMOUS EPITHELIAL CELL URINE MODERATE(A ) NONE/RARE #/LPF TBH CRYSTALS SEEN? None Seen None Seen #/HPF TBH CAST SEEN? NONE SEEN NONE SEEN #/LPF TBH URINE CULTURE INDICATED YES-LC TBH 02/10/2025 1:00 AM EDT 02/10/2025 1:15 AM EDT Narrative [facility] - 02/10/2025 1:34 AM EDT Kayla LORA CLIN[facility]YNC Final Result Performing Organization Address [facility] de Phone Number [facility] TB * (ABNORMAL) TBH UA (CLEAN/CATCH) CERAMIC PAINTER/MICRO IF IND. (02/10/2025 1:00 AM EDT) COLOR URINE LT. YELLOW YELLOW TBH CLARITY URINE CLEAR CLEAR TBH SPECIFIC GRAVITY URINE 1.010 1.005 - 1.025 TBH PH URINE 6.0 5.0 - 9.0 TBH PROTEIN URINE NEGATIVE NEG/TRACE mg/dL TBH GLUCOSE URINE UA NEGATIVE NEGATIVE mg/dL TBH BILIRUBIN URINE NEGATIVE NEGATIVE TBH KETONES URINE NEGATIVE NEGATIVE mg/dL TBH BLOOD URINE NEGATIVE NEGATIVE TBH NITRITE URINE NEGATIVE NEGATIVE TBH UROBILINOGEN URINE 0.2 0.2 - 1.0 EU/dL TBH LEUKOCYTE ESTERASE URINE MODERATE(A) NEGATIVE TBH URINE MICROSCOPIC INDICATED YES TBH 02/10/2025 1:00 AM EDT 02/10/2025 1:15 AM EDT Narrative [facility] - 02/10/2025 1:34 AM EDT Kayla Singletary [facility] CLINISYNC Final Result Performing Organization Address [facility] de Phone Number [facility] * [facility] PAP AND HPV DNA REFLEX HPV 16,18 (01/27/2025 4:56 PM EDT) CLINICAL INFORMATION [facility] Comment:None given LMP [facility] Comment:NONE GIVEN PREV. PAP [facility] Comment:NONE GIVEN PREV. BX [facility] Comment:NONE GIVEN SOURCE [facility] Comment:None given STATEMENT OF ADEQUACY [facility] Comment: Satisfactory for evaluation. Endocervical/transformation zone component absent. INTERPRETATION/RESU LT [facility] Comment: Cytology Results: Negative for intraepithelial lesion or malignancy. INFECTION [facility] Comment: Shift in vaginal natalie suggestive of bacterial vaginosis. COMMENT [facility] Comment: This Pap test has been evaluated with computer assisted technology. CREDIT ADJUSTER [facility] Comment: JJK, SCT(ASCP) CT Screening Location: [place] [address]. REVIEW CREDIT ADJUSTER [facility] Comment: Reference Range: ZL, CT(ASCP) CT screening location: [facility], [address] [place] [address]. (ALWAYS MESSAGE) [facility] Comment: EXPLANATORY NOTE: The Pap is a screening test for cervical cancer. It is not a diagnostic test and is subject to false negative and false positive results. It is most reliable when a satisfactory sample, regularly obtained, is submitted with relevant clinical findings and history, and when the Pap result is evaluated along with historic and current clinical information. HPV DNA, HIGH RISK, CERVICAL Not Detected NOT DETECTED [facility] Comment: Not Detected High Risk HPV types (16,18,31,33,35,39,45,51,52, 56,58,59,66,68) were not detected. Other HPV types which cause anogenital lesions may be present. The significance of the other types of HPV in malignant processes has not been established. Methodology: Real Time PCR Swab Cervical swab / Unknown 01/27/2025 4:56 PM EDT 01/28/2025 2:48 AM EDT Narrative Resulting Agency Comment Performing Organization Information Site ID: AMD Name: [facility] Address: [address] [address] [place] Director: Mac Bird M.D.,PhD Site ID: [id number] Name: [facility] Address: [address] [place] [phone] Director: Orion Humphries MD us Kayla Singletary CNM LAB CYTOLOGY ORDERABLES Keli misha Result [facility] * STREPTOCCOUS, GROUP B CULTURE (01/27/2025 4:55 PM EDT) MICRO NUMBER [id number] [facility] SPECIMEN QUALITY Adequate [facility] SOURCE VAGINAL/ANOR ECTAL [facility] STATUS FINAL [facility] RESULT SEE NOTE [facility] Comment: No group B Streptococcus isolated COMMENT SEE NOTE [facility] Comment: Note per CDC guidelines optimal recovery is achieved by swabbing both the lower vagina and rectum (through the anal sphincter). 01/27/2025 4:55 PM EDT 01/27/2025 4:56 PM EDT Narrative [facility] - 01/30/2025 10:47 AM EDT MULTIPLE COLLECTION TIMES FOR SAME TEST TYPE. Resulting Agency Comment Performing Organization Information Site ID: QPT Name: [facility] Address: [address] [place] [address], [address] [place] [phone] Director: Orion Humphries MD us Kayla Singletary CNM LAB BODY FLUIDS AND STOOLS O RDERABLES Final Result Performing Organization Address [facility] de Phone Number [facility] * (ABNORMAL) GLUCOSE TOLERANCE TEST, GESTATIONAL,4SPEC(100G) (01/05/2025 9:31 AM EDT) GLUCOSE, FASTING 86 65 - 94 mg/dL [facility] GLUCOSE, 1 HOUR 200(H) <180 mg/dL [facility] GLUCOSE, 2 HOUR 136 <155 mg/dL [facility] GLUCOSE, 3 HOUR 83 <140 mg/dL [facility] COMMENT [facility] Comment: Savage/Coustan Criteria: Two or more values greater than the above reference intervals are suggestive of gestational diabetes. 01/05/2025 9:31 AM EDT 01/05/2025 9:31 AM EDT Narrative [facility] - 01/06/2025 12:53 PM EDT PT FELL TO SLEEP AND CAME IN LATE FOR LAST DRAW Resulting Agency Comment Performing Organization Information Site ID: QPT Name: [facility] Address: [address] [place] [address], [address] [place] [phone] Director: Orion Humphries MD us Kayla Singletary CNM LAB BLOOD ORDERABLES Final R esult Performing Organization Address [facility] de Phone Number [facility] * US OB follow up transabdominal approach (12/15/2024 4:17 PM EDT) Anatomical Region Laterality Modality Body Ultrasound 12/15/2024 6:04 PM EDT Narrative 12/15/2024 6:04 PM EDT TITLE OF EXAM: OB Ultrasound: REASON FOR EXAM: Growth. COMPARISON: 10/07/2024 TECHNIQUE: Grayscale and M-mode Doppler imaging is performed. FINDINGS: heart rate: 147 bpm ANN: 14.2 cm (8.9-23.6) BPD: 7.5 cm HC: 27.5 cm AC: 26.5 cm FL: 5.8 cm GA for sonogram: 30.0 wk (28.2-31.8) Cervix length: 4.0 cm JAMEL: 02/19/2025 Weight Estimate: Weight: 1583 gm / 3 lbs, 7 oz (2099-7506 gm) Hadlock Normal: 1674 gm (0236-8549 gm) Hadlock Wt%: 34% for 30.6 wks [...] signed and approved by the interpreting radiologist. Procedure Note Daniel Matthews MD - 12/15/2024 TITLE OF EXAM: OB Ultrasound: REASON FOR EXAM: Growth. COMPARISON: 10/07/2024 TECHNIQUE: Grayscale and M-mode Doppler imaging is performed. FINDINGS: heart rate: 147 bpm ANN: 14.2 cm (8.9-23.6) BPD: 7.5 cm HC: 27.5 cm AC: 26.5 cm FL: 5.8 cm GA for sonogram: 30.0 wk (28.2-31.8) Cervix length: 4.0 cm JAMEL: 02/19/2025 Weight Estimate: Weight: 1583 gm / 3 lbs, 7 oz (0929-6820 gm) Hadlock Normal: 1674 gm (9678-3779 gm) Hadlock Wt%: 34% for 30.6 wks LMP: 05/15/24 Age by LMP: 30 w 4 d Age Prior US: 20 w 4 d Age USToday: 30 w 2 d JAMEL by LMP: 02-19-25 JAMEL Prior US: JAMEL USToday: 02-21-25 Gestation: Single Position: Breech Placenta Location: Anterior Placental Grade: 3 Heart Rate: 147 bpm Somatic Movement: Yes Cervical Length: 3.95 cm IMPRESSION: 1. Single viable intrauterine gestation, with an estimated ultrasound ageof 30 weeks 2 days. 2. Breech presentation currently with anterior placenta. Dictated and transcribed 12/15/24/dpd This report has been electronically signed and approved by theinterpreting radiologist. us Kayla Singletary CNM IMG OB US PROCEDURES Final R esult * (ABNORMAL) GLUCOSE, GESTATIONAL SCREEN (50G)-135 CUTOFF (12/01/2024 2:02 PM EDT) GLUCOSE, GESTATIONAL SCREEN (50G)-135 CUTOFF 171(H) <135 mg/dL [facility] Comment: One hour value of > or = 135 mg/dL indicates the need for a diagnostic 75 g dose 2-hour or 100 g dose 3-hour oral glucose tolerance test; patient fasting is required. 12/01/2024 2:02 PM EDT 12/01/2024 2:02 PM EDT Narrative Resulting Agency Comment Performing Organization Information Site ID: QPT Name: [facility] Address: [address] [place] [address], [address] [place] [phone] Director: Orion Humphries MD us Kayla Singletary CNM LAB BLOOD ORDERABLES Final R esult [facility] * (ABNORMAL) CBC (12/01/2024 2:02 PM EDT) WHITE BLOOD CELL COUNT 9.6 3.8 - 10.8 Thousand/u L [facility] RED BLOOD CELL COUNT 3.41(L) 3.80 - 5.10 Million/uL [facility] HEMOGLOBIN 11.2(L) 11.7 - 15.5 g/dL [facility] HEMATOCRIT 32.7(L) 35.0 - 45.0 % [facility] MCV 95.9 80.0 - 100.0 fL [facility] MCH 32.8 27.0 - 33.0 pg [facility] MCHC 34.3 32.0 - 36.0 g/dL [facility] Comment: For adults, a slight decrease in the calculated MCHC value (in the range of 30 to 32 g/dL) is most likely not clinically significant; however, it should be interpreted with caution in correlation with other red cell parameters and the patient's clinical condition. RDW 13.0 11.0 - 15.0 % [facility] PLATELET COUNT 174 140 - 400 Thousand/u L [facility] MPV 10.7 7.5 - 12.5 fL [facility] Blood Venous blood specimen / Unknown 12/01/2024 2:02 PM EDT 12/01/2024 2:02 PM EDT Narrative Resulting Agency Comment Performing Organization Information Site ID: QPT Name: [facility] Address: [address] [place] [address], [address] [place] [phone] Director: Orion Humphries MD Kayla Singletary CNM LAB BLOOD ORDERABLES Final R esult [facility] from Last 3 Months Insurance [employer]
--- OUTSIDE RECORDS SUMMARY | 2025-02-19 15:38 | XMS_ITS | Encounter Summary ---
Author Organization [facility] Address [address] [place] [address] Care Team Providers Care Reel And Rewinder Operator Name Role Phone Unavailable Primary Care Provider Unavailabl e Encounter Details Date Type Department Care Team (Late st Contact Info) Description 02/09/2025 Telephone [facility] OB [address] [place] [address] Kayla Singletary, CNM [address] [place], [place] [id number] Social History Tobacco Use Types Packs/Day Years [...] on file documented as of this encounter Miscellaneous Notes * Telephone Encounter - MOUNIKA JOHNSON - 02/09/2025 10:57 PM EDT Patient is calling OA due to she is not able to feel the baby to move all day, her whole body is swollen. She is wondering should she go to the OBGYN triage. Blood pressure is 126/87 Yes. Go to [facility] for eval Yes she needs to go to triage especially if it's been all day w no movement Patient is aware due to I was on the phone while messaging Dr. Singletary documented in this encounter Plan of Treatment Not on file documented as of this encounter Visit Diagnoses Not on filedocumented in this encounter
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
--- OUTSIDE RECORDS SUMMARY | 2025-02-19 15:38 | XMS_ITS | Encounter Summary ---
Author Organization [facility] Address [address] [place] [address] Care Team Providers Care Vacuum Plastic Forming Machine Operator Name Role Phone Unavailable Primary Care Provider Unavailabl e Encounter Details Date Type Department Care Team (Late st Contact Info) Description 02/17/2025 Clinisync Result Encounter [facility] Unsolicited Kayla Singletary, CNM [address], [place] [id number] Social History Tobacco Use Types Packs/Day Years [...] on file documented as of this encounter Procedures Procedure Name Priority Date/Time Associated Diagnosis Comments [facility] CBC WITH PLATELET NO DIFFERENTIAL Routine 02/17/2025 4:55 PM EDT TB DRUG SCREEN RAPID (URINE) Routine 02/17/2025 4:30 PM EDT documented in this encounter Results * (ABNORMAL) [facility] CBC WITH PLATELET NO DIFFERENTIAL (02/17/2025 4:55 PM EDT) [facility] WBC 10.2 4.0 - 11.0 10 3/uL [facility] RBC 3.61(L) 4.20 - 5.40 10 6/uL [facility]H HGB 11.8(L) 12.0 - 16.0 g/dL TBH TBH HCT 34.0(L) 36.0 - 48.0 % [facility]H MCV 94.2 81.0 - 99.0 fL TBH TBH MCH 32.7 26.7 - 34.0 pg TBH TBH MCHC 34.7 29.9 - 35.2 g/dL TB TB RDW 14.6 11.0 - 15.0 % TBH TBH PLT 181 150 - 450 10 3/uL TBH TB MPV 11.9 9.5 - 13.5 fL TB 02/17/2025 4:55 PM EDT 02/17/2025 6:41 PM EDT Narrative [facility] - 02/17/2025 6:45 PM EDT us Kayla Singletary CNM [facility] Final Result [facility] * TB DRUG SCREEN RAPID (URINE) [...] 6:41 PM EDT Narrative [facility] - 02/17/2025 6:58 PM EDT us Kayla Singletary CNM [facility] Final Result [facility] documented in this encounter Visit Diagnoses Not on filedocumented in this encounter
--- OUTSIDE RECORDS SUMMARY | 2025-02-19 15:38 | XMS_ITS | Encounter Summary ---
Author Organization [facility] Address [address] [place] [address] Care Team Providers Care Patch Worker Name Role Phone Unavailable Primary Care Provider Unavailabl e Encounter Details Date Type Department Care Team (Late st Contact Info) Description 02/10/2025 Clinisync Result Encounter [facility] External Department Unsolicited Kayla Singletary, CNLuciana [address], [place] [id number] Social History Tobacco Use Types Packs/Day Years [...] Procedure Name Priority Date/Time Associated Diagnosis Comments URINE CULTURE, ROUTINE Routine 02/10/2025 1:00 AM EDT [facility] URINE MICROSCOPIC ONLY Routine 02/10/2025 1:00 AM EDT [facility] UA (CLEAN/CATCH) HOCKEY SCOUT/MICRO IF IND. Routine 02/10/2025 1:00 AM EDT documented in this encounter Results * URINE CULTURE, ROUTINE (02/10/2025 1:00 AM EDT) URINE CULTURE, ROUTINE Urine Culture, Routine [facility] URINE CULTURE, ROUTINE Mixed urogenital natalie [facility] URINE CULTURE, ROUTINE Less than 10,000 colonies/mL [facility] URINE CULTURE, ROUTINE Performed at: [facility], ROUTINE [address] [place], [place] [id number] [facility] URINE CULTURE, ROUTINE Software Test Analyst: Isaac Stockton PhD, Phone: [phone] TB 02/10/2025 1:00 AM EDT 02/10/2025 1:15 AM EDT Narrative [facility] - 02/11/2025 9:08 PM EDT Kayla Singletary CNM LAB BLOOD ORDERABLES Final R esult Performing Organization Address City/[facility]/ZIP Co de Phone Number [facility] * (ABNORMAL) [facility] URINE MICROSCOPIC ONLY (02/10/2025 1:00 AM EDT) TB WBC 2-5(A) NONE SEEN #/HPF TB[facility] TBH RBC 0-2 0 - 2 #/HPF [facility] BACTERIA URINE SMALL(A) NONE SEEN #/HPF TB[facility] MUCUS URINE NONE SEEN NONE SEEN TBH SQUAMOUS EPITHELIAL CELL URINE MODERATE(A ) NONE/RARE #/LPF TBH CRYSTALS SEEN? None Seen None Seen #/HPF TBH CAST SEEN? NONE SEEN NONE SEEN #/LPF [facility] URINE CULTURE INDICATED YES-LC TB 02/10/2025 1:00 AM EDT 02/10/2025 1:15 AM EDT Narrative [facility] - 02/10/2025 1:34 AM EDT Kayla LORA [facility] Final Result Performing Organization Address City/[facility]/ZIP Co de Phone Number [facility]YWI [facility] * (ABNORMAL) [facility] UA (CLEAN/CATCH) HOCKEY SCOUT/MICRO IF IND. (02/10/2025 1:00 AM EDT) COLOR [...] AM EDT 02/10/2025 1:15 AM EDT Narrative [facility] - 02/10/2025 1:34 AM EDT us Kayla Singletary CNM [facility] Final Result [facility] documented in this encounter Visit Diagnoses Not on filedocumented in this encounter
--- OUTSIDE RECORDS SUMMARY | 2025-02-19 15:38 | XMS_ITS | Encounter Summary ---
Author Organization [employer] Address [id number] [address] [place] [address] Care Team Providers Care Temporary Receptionist Name Role Phone No Pcp, No Pcp Primary Care Provider Unavailabl e Encounter Details Date Type Department Care Team (Late st Contact Info) Description 08/23/2021 Telephone [facility] [address] [place] [address] Archana Ro MA Social History [...] have Coronavirus / COVID-19? No / Unsure 08/23/2021 9:18 AM EST documented as of this encounter Miscellaneous Notes * Telephone Encounter - Archana Ro MA - 08/23/2021 9:16 AM EST [facility] PROCEDURE August @ 1PM documented in this encounter Plan of Treatment [...] documented as of this encounter Care Teams Temporary Receptionist Relationship Specialty Start Date End Date No Pcp, [place] [address] PCP - General Family Medicine 01/04/19 documented as of this encounter
== END 2025-02-18 10:06 | disposition home or self-care (01) ==
PROVIDERS: Admitting Provider Midwife; Visit Provider Midwife
DX: O61.0 Failed medical induction of labor (principal); Z3A.39 39 weeks gestation of pregnancy
CPT/HCPCS: 36415; 80307; 85027; 86850; 86900; 86901; G0378; G0379

== ENCOUNTER 2025-02-21 14:59 | Outpatient (OUT) | payer OTHER, SELFPAY ==
--- OUTSIDE RECORDS SUMMARY | 2025-02-21 15:02 | XMS_ITS | CCD ---
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 Medicine ? Take trzd-dsj-wkqmtul and prescription medicines only as told by [...] or a bad smell. Medicine ? Take nibb-ssw-rlfgrua and prescription medicines only as told by [...] or a bad smell. Medicine ? Take juvp-yzq-efsgxzm and prescription medicines only as told by [...] 08/20/2006 Document Revised: 03/11/2017 Document Reviewed: 02/06/2017 [employer] Interactive Patient Education ? 2019 AFAR. Viruses or Bacteria What?s got you sick? [...] for Disease Control and Prevention May 2014 [facility] Cult,Urine,CCon 06-19-2018 Cult,Urine,CC Specimen Description .CLEAN CATCH URINE Special Requests NOT REPORTED Culture NO SIGNIFICANT GROWTH Report Status FINAL 06/18/2018 [facility] Comment on above: Performed By: #### C PIERCE ####[facility] [place], [place] [id number] [facility] [place] [address] Basic Metabolic Profon 06-17 (cont.) Normal [facility] Comment on above: Result Comment: Aver age GFR for 20-29 years old: 116 mL/min/1.73sq mChronic Kidney Disease: <60 mL/min/1.73sq mKidney failure: <15 mL/min/1.73sq meGFR calculated using average adult body mass. Additional eGFR calculator available at:http://www.Reacción/multiple_crcl_2012.htm Performed By: #### L IVP, BMP, LIP, CDP ####[address] [address] Anion gap 3 molar conc 12 mmol/L Normal 9-17 [facility] Comment on above: Performed By: #### L IVP, BMP, LIP, CDP ####[address] [address] BUN/CRE Ratio 16 Normal 9-20 [facility] Comment on above: Performed By: #### L IVP, BMP, LIP, CDP ####[address] [address] Calcium mass conc 9.1 mg/dL Normal 8.6-10.4 [facility] Comment on above: Performed By: #### L IVP, BMP, LIP, CDP ####[address] [address] Chloride molar conc 103 mmol/L Normal 98-107 [facility] Comment on above: Performed By: #### L IVP, BMP, LIP, CDP ####[place] [address] CO2 molar conc 23 mmol/L Normal 20-31 [facility] Comment on above: Performed By: #### L IVP, BMP, LIP, CDP ####[place] [address] [place] [address] Creatinine mass conc 0.68 mg/dL Normal 0.50-0.90 [facility] Comment on above: Performed By: #### L IVP, BMP, LIP, CDP ####[address] [place] [address] GFR, Amer >60 Normal >60 [facility] Comment on above: Performed By: #### L IVP, BMP, LIP, CDP ####[address] [facility] [place] [address] GFR,non Amer >60 Normal >60 [facility] Comment on above: Performed By: #### L IVP, BMP, LIP, CDP ####[address] [place] [address] Glucose mass conc 83 mg/dL Normal 70-99 [facility] Comment on above: Performed By: #### L IVP, BMP, LIP, CDP ####[address] [place] [address] Potassium molar conc 3.7 mmol/L Normal 3.7-5.3 [facility] Comment on above: Performed By: #### L IVP, BMP, LIP, CDP ####[address] [facility] [place] [address] Sodium molar conc 138 mmol/L Normal 135-144 [facility] Comment on above: Performed By: #### L IVP, BMP, LIP, CDP ####[address] [facility] [place] [address] Urea nitrogen mass conc 11 mg/dL Normal 6-20 [facility] Comment on above: Performed By: #### L IVP, BMP, LIP, CDP ####[address] [address] Staging: NOT REPORTED Normal [facility] Comment on above: Performed By: #### L IVP, BMP, LIP, CDP ####[address] [address] CBC with Diffon 06-17-2018 Abs. Basophil 0.00 k/uL Normal 0.0-0.2 [facility] Comment on above: Performed By: #### L IVP, BMP, LIP, CDP ####[place] [address] Abs.Neutrophil (Seg) 5.70 k/uL Normal 1.8-7.7 [facility] Comment on above: Performed By: #### L IVP, BMP, LIP, CDP ####[address] [address] Basophils/100 WBC Auto (Bld) 0 % Normal 0-2 [facility] Comment on above: Performed By: #### L IVP, BMP, LIP, CDP ####[address] [address] Eosinophils Auto #/vol (Bld) 0.10 10*3/uL Normal 0.0-0.4 [facility] Comment on above: Performed By: #### L IVP, BMP, LIP, CDP ####[address] [address] Eosinophils/100 WBC Auto (Bld) 1 % Normal 1-4 [facility] Comment on above: Performed By: #### L IVP, BMP, LIP, CDP ####[address] [address] Erythrocyte distribution width Auto Ratio (RBC) 12.6 % Normal 11.5-14.5 [facility] Comment on above: Performed By: #### L IVP, BMP, LIP, CDP ####[place] [address] Hematocrit Auto Volume Fraction (Bld) 38.7 % Normal 36-46 [facility] Comment on above: Performed By: #### L IVP, BMP, LIP, CDP ####[address] [address] Hemoglobin mass conc (Bld) 13.4 g/dL Normal 12.0-16.0 [facility] Comment on above: Performed By: #### L IVP, BMP, LIP, CDP ####[address] [address] Lymphocytes Auto #/vol (Bld) 1.80 10*3/uL Normal 1.0-4.8 [facility] Comment on above: Performed By: #### L IVP, BMP, LIP, CDP ####[address] [address] Lymphocytes/100 WBC Auto (Bld) 21 % Low 24-44 [facility] Comment on above: Performed By: #### L IVP, BMP, LIP, CDP ####[address] [address] MCH Auto Entitic mass (RBC) 31.5 pg Normal 26-34 [facility] Comment on above: Performed By: #### L IVP, BMP, LIP, CDP ####[place] [id number] MCHC Auto mass conc (RBC) 34.7 g/dL Normal 31-37 [facility] Comment on above: Performed By: #### L IVP, BMP, LIP, CDP ####[address] [facility] [place] [address] MCV Auto Entitic volume (RBC) 90.8 fL Normal 80-100 [facility] Comment on above: Performed By: #### L IVP, BMP, LIP, CDP ####[address] [place] [address] Monocytes Auto #/vol (Bld) 0.80 10*3/uL Normal 0.2-0.8 [facility] Comment on above: Performed By: #### L IVP, BMP, LIP, CDP ####[address] [place] [address] Monocytes/100 WBC Auto (Bld) 9 % High 1-7 [facility] Comment on above: Performed By: #### L IVP, BMP, LIP, CDP ####[address] [place] [address] Neutrophil (Seg) 69 % High 36-66 [facility] Comment on above: Performed By: #### L IVP, BMP, LIP, CDP ####[address] [place] [address] Platelet mean volume Auto Entitic volume (Bld) 9.0 fL Normal 6.0-12.0 [facility] Comment on above: Performed By: #### L IVP, BMP, LIP, CDP ####[address] [place] [address] Platelets Auto #/vol (Bld) 184 10*3/uL Normal 130-400 [facility] Comment on above: Performed By: #### L IVP, BMP, LIP, CDP ####[address] [facility] [place] [address] RBC Auto #/vol (Bld) 4.26 10*6/uL Normal 4.0-5.2 [facility] Comment on above: Performed By: #### L IVP, BMP, LIP, CDP ####[address] [address] WBC Auto #/vol (Bld) 8.4 10*3/uL Normal 3.5-11.0 [facility] Comment on above: Performed By: #### L IVP, BMP, LIP, CDP ####[place] [address] Abs.Imm.Granulocyte NOT REPORTED Normal 0.00-0.30 [facility] Comment on above: Performed By: #### L IVP, BMP, LIP, CDP ####[place] [address] Auto Diff Performed NOT REPORTED Normal [facility] Comment on above: Performed By: #### L IVP, BMP, LIP, CDP ####[address] [address] Immature granulocytes #/vol (Bld) NOT REPORTED Normal 0 [facility] Comment on above: Performed By: #### L IVP, BMP, LIP, CDP ####[place] [address] NRBC Automated NOT REPORTED Normal [facility] Comment on above: Performed By: #### L IVP, BMP, LIP, CDP ####[place] [address] Platelets Auto #/vol (Bld) NOT REPORTED Normal [facility] Comment on above: Performed By: #### L IVP, BMP, LIP, CDP ####[address] [place] [address] RBC morphology finding Nom (Bld) NOT REPORTED Normal [facility] Comment on above: Performed By: #### L IVP, BMP, LIP, CDP ####[facility] [place] [address] WBC Morphology NOT REPORTED Normal [facility] Comment on above: Performed By: #### L IVP, BMP, LIP, CDP ####[address] [address] Lipaseon 06-17-2018 Lipase enzyme act/vol 18 U/L Normal 13-60 [facility] Comment on above: Performed By: #### L IVP, BMP, LIP, CDP ####[address] [address] Liver Profileon 06-17-2018 Albumin mass conc 4.0 g/dL Normal 3.5-5.2 [facility] Comment on above: Performed By: #### L IVP, BMP, LIP, CDP ####[address] [address] Alkaline Phos 61 U/L Normal 35-104 [facility] Comment on above: Performed By: #### L IVP, BMP, LIP, CDP ####[address] [address] ALT enzyme act/vol 9 U/L Normal 5-33 [facility] Comment on above: Performed By: #### L IVP, BMP, LIP, CDP ####[address] [address] AST enzyme act/vol 13 U/L Normal <32 [facility] Comment on above: Performed By: #### L IVP, BMP, LIP, CDP ####[place] [address] [place] [address] Bilirubin Ql (U) 0.33 mg/dL Normal 0.3-1.2 [facility] Comment on above: Performed By: #### L IVP, BMP, LIP, CDP ####[address] [place] [address] Bilirubin, Indirect 0.25 mg/dL Normal 0.00-1.00 [facility] Comment on above: Performed By: #### L IVP, BMP, LIP, CDP ####[address] [place] [address] Bilirubin.direct mass conc 0.08 mg/dL Normal <0.31 [facility] Comment on above: Performed By: #### L IVP, BMP, LIP, CDP ####[address] [place] [address] Protein mass conc 6.6 g/dL Normal 6.4-8.3 [facility] Comment on above: Performed By: #### L IVP, BMP, LIP, CDP ####[address] [place] [address] Albumin/Globulin mass ratio NOT REPORTED Normal 1.0-2.5 [facility] Comment on above: Performed By: #### L IVP, BMP, LIP, CDP ####[address] [facility] [place] [address] Globulin Calculated mass conc (S) NOT REPORTED Normal 1.5-3.8 [facility] Comment on above: Performed By: #### L IVP, BMP, LIP, CDP ####[address] [place] [address] UA w/Reflex Cultureon 2017 Acetoacetic Acid,Ur Negative Normal NEG [facility] Comment on above: Performed By: #### U AX, UMICAO ####[address] [address] Bilirubin, SemiQt,Ur Negative Normal NEG [facility] Comment on above: Performed By: #### U AX, UMICAO ####[address] [address] Color YELLOW Normal YEL [facility] Comment on above: Performed By: #### U AX, UMICAO ####[address] [address] Glucose,Semi-qnt,Ur Negative Normal NEG [facility] Comment on above: Performed By: #### U AX UMICAO ####[address] [address] Hemoglobin, Ur Negative Normal NEG [facility] Comment on above: Performed By: #### U AX, UMICAO ####[address] [address] Leuckocyte Esterase Negative Normal NEG [facility] Comment on above: Performed By: #### U AX, UMICAO ####[address] [address] Nitrite,Ur Negative Normal NEG [facility] Comment on above: Performed By: #### U AX, UMICAO ####[address] [address] PH,Ur 5.5 Normal 5.0-8.0 [facility] Comment on above: Performed By: #### U AX UMICAO ####[address] [address] Protein, Semi-qnt,Ur TRACE Abnormal NEG [facility] Comment on above: Performed By: #### CLARKE POON ####[facility] [place] [address].[place] [address] Spec. [place],Ur 1.020 Normal 1.005-1.030 [facility] Comment on above: Performed By: #### CLARKE POON ####[address] [address] Turbidity SLIGHTLY CLOUDY Abnormal CLEAR [facility] Comment on above: Performed By: #### CLARKE POON ####[address] [address] Urobilinogen,Ur Normal Normal NORM [facility] Comment on above: Performed By: #### CLARKE POON ####[address] [address] Comment NOT REPORTED Normal [facility] Comment on above: Performed By: #### CLARKE POON ####[address] [address] Urinalysis,Microon 8 ----- Normal [facility] Comment on above: Performed By: #### CLARKE POON ####[facility] [place] [address] Bacteria MANY Abnormal NONE [facility] Comment on above: Performed By: #### CLARKE POON ####[address] [address] Epithelial cells 20 TO 50 Normal 0-5 [facility] Comment on above: Performed By: #### CLARKE POON ####[facility] [place] [address] RBC Test strip #/vol (U) 0 TO 2 Normal 0-2 [facility] Comment on above: Performed By: #### U AX, UMICAO ####[facility] [place] [address] Urine WBC's 0 TO 2 Normal 0-5 [facility] Comment on above: Performed By: #### U AX, UMICAO ####[facility] [facility] [place] [address] Amorphous Sediment NOT REPORTED Normal NONE [facility] Comment on above: Performed By: #### U AX, UMICAO ####[facility] [place], [place] [address]ia [facility] [place] [address] Casts NOT REPORTED Normal [facility] Comment on above: Performed By: #### U AX, UMICAO ####[facility] [place], [place] [address]ia [facility] [place] [address] Crystals NOT REPORTED Normal NONE [facility] Comment on above: Performed By: #### U AX, UMICAO ####[facility] [facility] [place] [address] Epithelial, Renal NOT REPORTED Normal 0 [facility] Comment on above: Performed By: #### U AX, UMICAO ####[facility] [facility] [place] [address] Mucus Strands NOT REPORTED Normal NONE [facility] Comment on above: Performed By: #### U AX, UMICAO ####[facility] [place] [address] Other Observations NOT REPORTED Normal [facility] Comment on above: Performed By: #### U AX, UMICAO ####[facility] [place] [address] Trichomonas NOT REPORTED Normal NONE [facility] Comment on above: Performed By: #### U AX, UMICAO ####[facility] [place], [place] [id number] Yeast NOT REPORTED Normal NONE [facility] Comment on above: Performed By: #### U AX, UMICAO ####[facility] [place], [place] [id number] Vaginitis DNA Probeon 2017 Vaginitis DNA Probe [...] vaginitis/vaginosis . Report Status FINAL 06/17/2018 Normal [facility] Comment on above: Performed By: #### V AGDNA ####[facility] [place], [place] [id number] FSHon 04-04-2018 FSH 1.6 IU/L Normal SEE [...] Glucose mass conc 108 mg/dL Normal 66-114 [facility] Comment on above: Result Comment: HEMO GLOBIN A1c DEGREE OF GLUCOSE CONTROL <5.7% Decreased risk of diabetes 5.7 - 6.4% Increased risk of diabetes >6.4% Consistent with diagnosis of diabetes Hemoglobin A1c/Hemoglobin.total mass fraction (Bld) 5.4 % Normal 4.2-5.8 [facility] LHon 04-04-2018 LH 4.3 IU/L Normal SEE BELOW [facility] Comment on above: Result Comment: EXPECTED [...] mass conc 5.17 ng/mL Normal SEE BELOW [facility] Comment on above: Result Comment: EXPECTED VALUES [...] . . . ng/mL 58.70-214.00[facility] [address] [place], [place] [address]Laboratory Director: ALICE HuertasIA No. [id number] [facility] Accreditation No. [id number] PROLACTINon 04-04-2018 Protein mass conc 8.5 ng/mL Normal 4.8-33.0 [facility] TSH WITH FT4 REFLEXon 2017 Thyrotropin Qn 3.25 uIU/mL Normal 0.40-4.10 [facility] Vital Signs Date Time Vital Sign Value Performing Clinician Facility 02-11-2025 13:43-0400 Body mass index (BMI) [Ratio] 36.49 kg/m2 David Floro CNM Work Phone: [facility] 02-11-2025 13:43-0400 Body weight 105.69 kg David Floro CNM Work Phone: [facility] 02-11-2025 13:43-0400 Diastolic blood pressure 72 mm[Hg] David Floro CNM Work Phone: [facility] 02-11-2025 13:43-0400 Systolic blood pressure 118 mm[Hg] David Floro CNM Work Phone: [facility] 02-04-2025 13:38-0400 Body mass index (BMI) [Ratio] 35.71 kg/m2 David Floro CNM Work Phone: [facility] 02-04-2025 13:38-0400 Body weight 103.42 kg David Floro CNM Work Phone: [facility] 02-04-2025 13:38-0400 Diastolic blood pressure 70 mm[Hg] David Floro CNM Work Phone: [facility] 02-04-2025 13:38-0400 Systolic blood pressure 118 mm[Hg] David Floro CNM Work Phone: [facility] 01-27-2025 15:28-0400 Body mass index (BMI) [Ratio] 36.34 kg/m2 David Floro CNM Work Phone: [facility] 01-27-2025 15:28-0400 Body weight 105.23 kg David Floro CNM Work Phone: [facility] 01-27-2025 15:28-0400 Diastolic blood pressure 80 mm[Hg] David Floro CNM Work Phone: [facility] 01-27-2025 15:28-0400 Systolic blood pressure 118 mm[Hg] David Floro CNM Work Phone: [facility] 01-12-2025 14:30-0400 Body mass index (BMI) [Ratio] 35.71 kg/m2 David Floro CNM Work Phone: [facility] 01-12-2025 14:30-0400 Body weight 103.42 kg David Floro CNM Work Phone: [facility] 01-12-2025 14:30-0400 Diastolic blood pressure 68 mm[Hg] David Floro CNM Work Phone: [facility] 01-12-2025 14:30-0400 Systolic blood pressure 110 mm[Hg] David Floro CNM Work Phone: [facility] 12-01-2024 13:31-0400 Body mass index (BMI) [Ratio] 36.02 kg/m2 David Floro CNM Work Phone: [facility] 12-01-2024 13:31-0400 Body weight 104.33 kg David Floro CNM Work Phone: [facility] 11-03-2024 15:12-0500 Body mass index (BMI) [Ratio] 34.46 kg/m2 David Floro CNM Work Phone: [facility] 11-03-2024 15:12-0500 Body weight 99.79 kg David Floro CNM Work Phone: [facility] 11-03-2024 15:12-0500 Diastolic blood pressure 70 mm[Hg] David Floro CNM Work Phone: [facility] 11-03-2024 15:12-0500 Systolic blood pressure 112 mm[Hg] David Floro CNM Work Phone: [facility] 10-07-2024 13:28-0500 Body mass index (BMI) [Ratio] 33.77 kg/m2 David Floro CNM Work Phone: [facility] 10-07-2024 13:28-0500 Body weight 97.8 kg David Floro CNM Work Phone: [facility] 10-07-2024 13:28-0500 Diastolic blood pressure 68 mm[Hg] David Floro CNM Work Phone: [facility] 10-07-2024 13:28-0500 Systolic blood pressure 110 mm[Hg] David Floro CNM Work Phone: [facility] 09-09-2024 14:05-0500 Body mass index (BMI) [Ratio] 33.05 kg/m2 David Floro CNM Work Phone: [facility] 09-09-2024 14:05-0500 Body weight 95.71 kg David Floro CNM Work Phone: [facility] 07-29-2024 13:53-0500 Body mass index (BMI) [Ratio] 33.05 kg/m2 David Floro CNM Work Phone: [facility] 07-29-2024 13:53-0500 Body weight 95.71 kg David Floro CNM Work Phone: [facility] 07-29-2024 13:53-0500 Diastolic blood pressure 80 mm[Hg] David Floro CNM Work Phone: [facility] 07-29-2024 13:53-0500 Systolic blood pressure 118 mm[Hg] David Floro CNM Work Phone: [facility] 02-21-2022 11:15-0400 Body height 170.18 cm Amrita Martin Other [employer] Other 02-21-2022 11:15-0400 Body mass index (BMI) [Ratio] 28.66 kg/m2 Amrita Martin Other [employer] Other 02-21-2022 11:15-0400 Body temperature 98.1 [degF] Amrita Martin Other [employer] Other 02-21-2022 11:15-0400 Body weight 83.01 kg Amrita Martin Other [employer] Other 02-21-2022 11:15-0400 Diastolic blood pressure 88 mm[Hg] Amrita Martin Other [employer] Other 02-21-2022 11:15-0400 Respiratory rate 16 /min Amrita Martin Other [employer] Other 02-21-2022 11:15-0400 SaO2% (BldA) [Mass fraction] 99 % Amrita Martin Other [employer] Other 02-21-2022 11:15-0400 Systolic blood pressure 131 mm[Hg] Amrita Martin Other [employer] Other Encounters Encounter Date Encounter Type Care Provider Facility Start: 02-17-2025 End: 02-18-2025 Clinis[employer] Result Encounter David Singletary CNM Work Phone: [facility] External Department Unsolicited Start: 02-17-2025 End: 02-18-2025 [employer] Result Encounter David Singletary CNM Work Phone: [facility] External Department Unsolicited Start: 02-11-2025 End: 02-11-2025 Bamboo flowsheet David L Floro CNM Work Phone: [facility] [facility] Start: 02-11-2025 End: 02-11-2025 Bamboo flowsheet David L Floro CNM Work Phone: [facility] Start: 02-11-2025 End: 02-11-2025 ambulatory DAVID L FLORO Not Available Start: 02-11-2025 End: 02-11-2025 Office outpatient visit 15 minutes David L Floro CNM Work Phone: [facility] Comment on above: Encounter for prenat al care of first , third trimester (Primary Dx); Hx of trichomoniasis Start: 02-10-2025 End: 02-10-2025 Clinisync Result Encounter David L Anelo CNM Work Phone: [facility] Unsolicited Start: 02-10-2025 End: 02-10-2025 Clinisync Result Encounter David Nesha Tamo CNM Work Phone: [facility] Unsolicited Start: 02-04-2025 End: 02-04-2025 Bamboo flowsheet David L Floro CNM Work Phone: [facility] Start: 02-04-2025 End: 02-04-2025 Bamboo flowsheet David L Floro CNM Work Phone: [facility] Start: 02-04-2025 End: 02-04-2025 ambulatory DAVID L FLORO Not Available Start: 02-04-2025 End: 02-04-2025 Office outpatient visit 15 minutes David L Floro CNM Work Phone: [facility] Comment on above: Asymptomatic microsc opic hematuria (Primary Dx); Encounter for care of first , third trimester; Hx of trichomoniasis Start: 01-31-2025 End: 01-31-2025 Emergency department patient visit [facility] Start: 01-27-2025 End: 01-27-2025 Office outpatient [...] [facility] Start: 12-16-2024 End: 12-16-2024 ambulatory [facility] Start: 12-15-2024 End: 12-15-2024 ambulatory DAVID L [...] department patient visit NO PCP [facility] Start: 11-01-2024 End: 11-01-2024 Emergency department patient visit NO PCP NO PCP [facility] Start: 10-07-2024 End: 10-07-2024 Clinisync Result Encounter David L Floro CNM Work Phone: [facility] Unsolicited Start: 10-07-2024 End: 10-07-2024 Clinisync Result Encounter David L Floro CNM Work Phone: [facility] Unsolicited Start: 10-07-2024 End: 10-07-2024 Office outpatient visit 15 minutes David L Floro CNM Work Phone: [facility] Comment on above: Encounter for prenat al care of first , second trimester (Primary Dx) Start: 10-07-2024 End: 10-07-2024 ambulatory DAVID L FLORO Not Available Start: 09-09-2024 End: 09-09-2024 Bamboo flowsheet David L Floro CNM Work Phone: [facility] Start: 09-09-2024 End: 09-09-2024 Bamboo flowsheet David L Floro CNM Work Phone: [facility] Start: 09-09-2024 End: 09-09-2024 Office outpatient visit 15 minutes David L Floro CNM Work Phone: [facility] Comment on above: Nausea/vomiting in p regnancy (Primary Dx); related condition in second trimester Start: 09-09-2024 End: 09-09-2024 ambulatory DAVID L FLORO Not Available Start: 09-07-2024 End: 09-07-2024 Emergency department patient visit NO PCP NO PCP [facility] Start: 08-11-2024 End: 08-11-2024 Telephone encounter David L Floro CNM Work Phone: [facility] Start: 08-09-2024 End: 08-09-2024 Emergency department patient visit Adilson Gandhi Facility:[facility] Start: 07-29-2024 End: 07-29-2024 Bamboo flowsheet David L Floro CNM Work Phone: [facility] Start: 07-29-2024 End: 07-29-2024 Bamboo flowsheet David L Floro CNM Work Phone: [facility] Start: 07-29-2024 End: 07-29-2024 ambulatory DAVID L FLORO Not Available Start: 07-29-2024 End: 07-29-2024 Office outpatient visit 15 minutes David Singletary CNM Work Phone: [facility] Comment on above: Arrived Start: 02-21-2022 End: 02-21-2022 ambulatory Amrita Martin Other [employer] Other Start: 02-21-2022 Office outpatient ne w 30 minutes Amrita Martin [facility] Start: 02-21-2022 End: 02-21-2022 Patient encounter procedure [employer] Amrita Martin Work Phone: [facility] Start: 06-17-2018 End: 06-17-2018 Emergency department patient visit [facility] Procedures Date Procedure Procedure Detail Performing Clinician Start: 02-17-2025 [facility] CBC WITH PLATEL ET NO DIFFERENTIAL David Singletary CNM Work Phone: Start: 02-17-2025 [facility] DRUG SCREEN RAPI D (URINE) David Tamo CNM Work Phone: Start: 02-10-2025 [facility] UA (CLEAN/CATCH) SEWING MACHINIST/MICRO IF IND. David Tamo CNM Work Phone: Start: 02-10-2025 [facility] URINE MICROSCOPIC ONLY David Singletary CNM Work Phone: Start: 10-07-2024 US OB ANATOMY David Tamo CNM Work Phone: Start: 10-07-2024 US OB CERVICAL LENGTH V parisa Tamo CNM Work Phone: Start: 02-21-2022 Plain X-ray of right clavicle [employer] Amrita Martin Work Phone: Start: 06-17-2018 POCT [...] PM EDT Routine [facility] [address] [place] [address] David Singletary, CN [address] [place] [address] [facility] Start: 02-11-2025 End: 02-11-2025 Patient encounter procedure 02/11/2025 1:30 PM EDT Routine [facility] [address] [facility] [place] [address] David Singletary, CNM [address] [place] [address] [facility] Start: 02-04-2025 End: 02-04-2025 Patient encounter procedure 02/04/2025 1:30 PM EDT Routine [facility] [address] [place] [address] David Singletary, CN [address] [place] [address] [facility] Start: 01-27-2025 End: 01-27-2025 Patient encounter procedure [facility] Comment on above: Arrived Start: 01-27-2025 End: 01-27-2026 STREPTOCCOUS, GROUP B CULTURE STREPTOCCOUS, GROUP B CULTURE Lab Routine screening for streptococcus B Expected: 01/27/2025 (Approximate), Expires: 01/27/2026 [facility] Work Phone: Comment on above: Expected: 01/27/2025 (Approximate), Expires: 01/27/2026 Start: 01-27-2025 End: 01-27-2026 THINPREP IMAGING PAP AND HPV DNA REFLEX HPV 16,18 THINPREP IMAGING PAP AND HPV DNA REFLEX HPV 16,18 Pathology and Cytology Routine Screening for cervical cancer Expected: 01/27/2025 (Approximate), Expires: 01/27/2026 [facility] Comment on above: Expected: 01/27/2025 (Approximate), Expires: 01/27/2026 Start: 2025 Screening for malignant neoplasm of cervix [facility] Start: 01-12-2025 End: 01-12-2025 Patient encounter procedure 01/12/2025 2:30 PM EDT Routine [facility] [address] [place] [address] David Singletary CNM [address] [place] [address] Arrived [facility] Comment on above: Arrived Start: 12-01-2024 End: 12-01-2025 CBC panel - Blood by Automated count CBC Lab Routine Screening for iron deficiency anemia Expected: 12/01/2024 (Approximate), Expires: 12/01/2025 [facility] Work Phone: Comment on above: Expected: 12/01/2024 (Approximate), Expires: 12/01/2025 Start: 12-01-2024 End: 12-01-2025 GLUCOSE, GESTATIONAL SCREEN (50G)-135 CUTOFF GLUCOSE, GESTATIONAL SCREEN (50G)-135 CUTOFF Lab Routine Screening for diabetes mellitus (DM) Expected: 12/01/2024 (Approximate), Expires: 12/01/2025 [facility] Comment on above: Expected: 12/01/2024 (Approximate), Expires: 12/01/2025 Start: 12-01-2024 End: 12-01-2025 US for US OB follow up transabdominal approach Imaging Routine related condition in third trimester Expected: 12/01/2024, Expires: 12/01/2025 [facility] Comment on above: Expected: 12/01/2024 , Expires: 12/01/2025 Start: 12-01-2024 End: 12-01-2024 ambulatory 12/01/2024 1:30 PM EDT Initial [facility] [address] [facility] [place] [id number] David Singletary, CNM [address] [place] [address] Arrived [facility] Comment on above: [...] PM EST Routine [facility] [address] [facility] [place] [phone] David Singletary, CN [address] [place] [address] [facility] Start: 09-09-2024 End: 09-09-2024 Patient encounter procedure 09/09/2024 2:00 PM EST Routine [facility] [address] [facility] [place] [phone] David Singletary, [facility] [address] [place] [address] Arrived [facility] Comment on above: Arrived Start: 09-09-2024 End: 09-09-2025 US for US OB ANATOMY SINGLE W US OB CERVICAL LENGTH Imaging Routine related condition in second trimester Expected: 09/09/2024, Expires: 09/09/2025 [facility] Work Phone: Comment on above: Expected: 09/09/2024 , Expires: 09/09/2025 Start: 09-01-2024 End: 09-01-2024 Patient encounter procedure 09/01/2024 2:30 PM EST Routine [facility] [address] [place] [address] David Singletary, CNM [address] [place] [address] [facility] Start: 07-29-2024 End: 07-29-2025 ABO/Rh ABO/Rh Lab Routine examination or test, positive result Expected: 07/29/2024 (Approximate), Expires: 07/29/2025 [facility] Comment on above: Expected: 07/29/2024 (Approximate), Expires: 07/29/2025 Start: 07-29-2024 End: 07-29-2025 Antibody screen Antibody screen Lab Routine examination or test, positive result Expected: 07/29/2024 (Approximate), Expires: 07/29/2025 [facility] Comment on above: Expected: 07/29/2024 (Approximate), Expires: 07/29/2025 Start: 07-29-2024 End: 07-29-2025 Bacteria identified in Urine by Culture Urine culture Microbiology Routine examination or test, positive result Expected: 07/29/2024 (Approximate), Expires: 07/29/2025 [facility] Comment on above: Expected: 07/29/2024 (Approximate), Expires: 07/29/2025 Start: 07-29-2024 End: 07-29-2025 CBC panel - Blood by Automated count CBC Lab Routine examination or test, positive result Expected: 07/29/2024 (Approximate), Expires: 07/29/2025 [facility] Comment on above: Expected: 07/29/2024 (Approximate), Expires: 07/29/2025 Start: 07-29-2024 End: 07-29-2025 DRUG TOX MONITORIGN 6 W/ CONF,URINE DRUG TOX MONITORIGN 6 W/ CONF,URINE Lab Routine examination or test, positive result Expected: 07/29/2024 (Approximate), Expires: 07/29/2025 [facility] Comment on above: Expected: 07/29/2024 (Approximate), Expires: 07/29/2025 Start: 07-29-2024 End: 07-29-2025 Hemoglobin A1c/Hemoglobin.total in Blood Hemoglobin A1c Lab Routine examination or test, positive result Expected: 07/29/2024 (Approximate), Expires: 07/29/2025 [facility] Comment on above: Expected: 07/29/2024 (Approximate), Expires: 07/29/2025 Start: 07-29-2024 End: 07-29-2025 Hepatitis B virus surface Ag [Presence] in Serum or Plasma by Immunoassay Hepatitis B surface antigen Lab Routine examination or test, positive result Expected: 07/29/2024 (Approximate), Expires: 07/29/2025 [facility] Work Phone: Comment on above: Expected: 07/29/2024 (Approximate), Expires: 07/29/2025 Start: 07-29-2024 End: 07-29-2025 HIV-1/HIV-2 antigen/antibody combination immunoassay HIV-1 and HIV-2 antibodies Lab Routine examination or test, positive result Expected: 07/29/2024 (Approximate), Expires: 07/29/2025 [facility] Comment on above: Expected: 07/29/2024 (Approximate), Expires: 07/29/2025 Start: 07-29-2024 End: 07-29-2025 Neisseria gonorrhoeae DNA [Presence] in Cervical mucus by BEN with probe detection C. trachomatis / N. gonorrhoeae, DNA probe Pathology and Cytology Routine examination or test, positive result Expected: 07/29/2024 (Approximate), Expires: 07/29/2025 [facility] Comment on above: Expected: 07/29/2024 (Approximate), Expires: 07/29/2025 Start: 07-29-2024 End: 11-26-2025 Reagin Ab [Presence] in Serum by RPR RPR Lab Routine examination or test, positive result Expected: 07/29/2024 (Approximate), Expires: 07/29/2025 [facility] Comment on above: Expected: 07/29/2024 (Approximate), Expires: 07/29/2025 Start: 07-29-2024 End: 07-29-2025 Rubella antibody, IgG Rubella antibody, IgG Lab Routine examination or test, positive result Expected: 07/29/2024 (Approximate), Expires: 07/29/2025 [facility] Comment on above: Expected: 07/29/2024 (Approximate), Expires: 07/29/2025 Start: 07-29-2024 End: 07-29-2025 TSH W/REFLEX TO FT4 TSH W/REFLEX TO FT4 Lab Routine examination or test, positive result Expected: 07/29/2024 (Approximate), Expires: 07/29/2025 [facility] Comment on above: Expected: 07/29/2024 (Approximate), Expires: 07/29/2025 Start: 07-29-2024 End: 07-29-2025 URINALYSIS MICROSCOPIC URINALYSIS MICROSCOPIC Lab Routine examination or test, positive result Expected: 07/29/2024 (Approximate), Expires: 07/29/2025 [facility] Comment on above: Expected: 07/29/2024 (Approximate), Expires: 07/29/2025 Start: 01-17-2016 Screening for malignant neoplasm of cervix Pap Smear [facility] Hepatitis C virus Ab [Presence] in Serum or Plasma by Immunoassay Hepatitis C antibody Lab Routine examination or test, positive result Ordered: 07/29/2024 [facility] Comment on above: Ordered: 07/29/2024 Payers Date Payer Category Payer Medicaid (Managed Care) 1.2. [id number] 2024 Self-pay [id number] 2024 Medicaid [id number] 2017 Unknown [id number] 2003 Medicaid [id number] 1995 Unknown [id number] 2.16.8 40.1.909809.3.579.2.177 1995 Unknown [id number] 2.16. 840.1.199996.3.579.2.128 1995 Unknown [id number] 2.16. 840.1.624506.3.579.2.1285 1995 Unknown [id number] 2.16. 840.1.134454.3.579.2.1285 1995 Unknown [id number] 2.. 840.1.080803.3.579.2.1285 1995 Unknown [id number] 2.. 840.1.385516.3.579.2.1285 1995 Unknown [id number] 2.16.8 40.1.430668.3.579.2.1258 1995 Unknown [id number] 2.16.8 40.1.288477.3.579.2.1258 1995 Unknown [id number] 2.16.84 0.1.418476.3.579.2.1258 1995 Unknown [id number] 2.16.84 0.1.618928.3.579.2.1258 1995 Unknown [id number] 2.16.84 0.1.846622.3.579.2.1258 1995 Unknown [id number] 2.16.84 0.1.271373.3.579.2.1258 1995 Unknown [id number] 2.16.84 0.1.029556.3.579.2.1258 1995 Unknown [id number] 2.16.84 0.1.700091.3.579.2.1258 1995 Unknown [id number] 2.16.84 0.1.497567.3.579.2.1259 1995 Unknown [id number] 2.16.84 0.1.875668.3.579.2.1259 1995 Unknown [id number] 2.16.84 0.1.529604.3.579.2.1259 Private Health Insurance [id number] Unknown [id number] 2.16.8 40.1.327730.3.579.2.531 Social History Date Type Detail Facility Tobacco smoking stat us FLIS Unknown if ever smoked [employer] Other Start: 1995 Sex Assigned At Female F [facility] Start: 07-29-2024 End: 12-15-[address] [facility] [employer] Other Start: 04-12-2023 End: 12-15-2024 Tobacco smoking status FLIS Smokes tobacco daily [facility] History of tobacco use Cigarette Smoker [facility] Start: 04-12-2023 End: 12-15-2024 Tobacco use and exposure Smokeless tobacco non-user [facility] Start: 07-29-2024 End: 12-30-2024 Alcoholic beverage intake Ex-drinker (finding) [facility] Start: 07-29-2024 End: 12-15-2024 History of Social function [facility] Start: 1995 Sex assigned at Not on file [facility] Start: 05-29-2024 [facility] Clinical Notes 02-21-2022 to 02-11-2025 David Singletary CNM - 02/11/2025 1:30 PM EDTValerimireille Singletary CNM - 02/04/2025 1:30 PM EDTValerimireille Singletary CNM - 01/27/2025 3:30 PM EDTValerimireille Singletary CNM - 01/12/2025 2:30 PM EDT Note Date & Type Note Facility 02-11-2025 History of Presen t illness Narrative Subjective No chief complaint on file. Glenna Mckeon is a 30 y.o. at 38w6d with [...] for elective IOL next week, February at [facility]. We discussed elective induction and risks, benefits and patient would like to proceed. Instructions given to patient and consent form obtained. All questions answered and consent sent to [facility] Continue vitamin. Labs reviewed. GBS negative Expected mode of delivery vaginal Follow up in 1 week for a routine visit. documented in this encounter [facility] 02-04-2025 History of Presen t illness Narrative [...] a routine visit. documented in this encounter [facility] 01-27-2025 History of Presen t [...] History of trich when she was in [place], Rh- negative Thigh pain Objective Physical Exam Weight: 232 lb Expected Total Weight Gain: 11 lb-19 lb Pregravid BMI: 33.04 BP: 118/80 Urine protein-100 Urine glucose-negative Assessment/Plan Continue vitamin. Labs reviewed. GBS taken. Expected mode of delivery Follow up in 1 week for a routine visit. documented in this encounter [facility] 01-12-2025 History of Presen t [...] use, marijuana use, history of trichomoniasis in [place] No problems Objective Physical Exam Weight: 228 [...] a routine visit. documented in this encounter [facility] 12-01-2024 History of Presen t [...] a routine visit. documented in this encounter [facility] 11-03-2024 History of Presen t [...] much better. She did receive antibiotics at [facility] and she is currently taking those. The area was on her right side upper inner leg. No c/o today. States it feels much better since lancing. documented in this encounter [facility] 10-07-2024 History of Presen t [...] Rhogam needed order to be sent to [facility] at 28 weeks Follow up in 4 weeks for a routine visit. documented in this encounter [facility] 09-09-2024 History of Presen t [...] a routine visit. documented in this encounter [facility] 08-11-2024 Telephone encount er Note Pt is requsting a proof of letter she said you had a copy of it? I did not see in her scanned letters [facility] 08-11-2024 Miscellaneous Notes Formattin g of this note might be different from the original. Pt is requsting a proof of letter she said you had a copy of it? I did not see in her scanned letters documented in this encounter [facility] 07-29-2024 History of Presen t illness Narrative Subjective Glenna Mckeon is a 29 y.o. at Unknown with a working estimated date of delivery of Not found. who presents for an initial visit. This is planned. No care maintenance team member to display OB History Para Term AB Living 1 SAB IAB Ectopic Multiple Live Births # Outcome Date GA Lbr Nolberto/2nd Weight Sex Type Anes PTL Lv 1 Current Her is complicated by: nausea and vomting, states she has a history of infertility, [place] by Gynecology History Last Pap pt is not sure The following portions of the chart were reviewed this encounter and updated as appropriate: Review of Systems Objective Physical Exam Expected Total Weight Gain: Could not be calculated Pregravid BMI: Could not be calculated Urine protein Urine glucose Labs Need to get records and US report from [place] so we can verify gestational age. Assessment/Plan [...] also given office phone number and [facility] number to call in case of an emergency or after hours needs. PVU and all questions answered. We did discuss place of delivery. Patient should plan to go to [facility] for all services unless an emergency and they need to go to the closest ER. We can make other arrangements possibly if patient would like to deliver at another facility but I did explain I am now at [facility] 100% of the time and would like to do all deliveries there. documented in this encounter [facility] 02-21-2022 Evaluation note Encounter Date [...] understanding and is agreeable to treatment plan [employer] Other Evaluation noteNo assessment information available [facility] Work Phone: Evaluation note* Diagnosis [...] care of first , third trimester- Primary Hx of trichomoniasis documented in this encounter [facility] Summary Purpose Family History No Family History Records FoundNo Family History Records FoundNo Family History Records FoundNo Family History Records FoundNo Family History Records FoundNo Family History Records FoundNo Family History Records Found Advance Directives Advance Directive Response Recorded Date/ Time Advance Directives No February 21 22 11:47am Chief Complaint and Reason for Visit Chief Complaint [id number] Additional Source Comments INFORMATION SOURCE (unrecogn ized section and content) DATE CREATED AUTHOR 04/04/2018 [facility] DATE CREATED AUTHOR AUTHOR'S ORGANIZ ATION 07/20/2018 [facility] DATE CREATED AUTHOR AUTHOR'S ORGANIZ ATION 04/22/2020 [facility] DATE CREATED AUTHOR AUTHOR'S ORGANIZ ATION 12/17/2024 [facility] DATE CREATED AUTHOR AUTHOR'S ORGANIZ ATION 01/08/2025 [facility] DATE CREATED AUTHOR AUTHOR'S ORGANIZ ATION 02/01/2025 [facility] DATE CREATED AUTHOR AUTHOR'S ORGANIZ ATION 02/14/2025 [facility] EPIC Care Teams (unrecognized sec [...] BE BASED ON THE PRIMARY CLINICAL RECORDS. [facility] [employer] [facility]. provides no warranty or guarantee of the accuracy or completeness of information in this document.
[2025-02-21 15:06] VITALS: TEMP 35.8
[2025-02-21 15:07] VITALS: BP 115/77; PULSE 107
== END 2025-02-21 15:40 | disposition home or self-care (01) ==
LOC: FBCO 15:00 → FBC 15:02
PROVIDERS: Visit Provider Midwife
DX: O26.893 Other specified pregnancy related conditions, third trimester (principal); Z3A.40 40 weeks gestation of pregnancy
CPT/HCPCS: 59025

== ENCOUNTER 2025-02-26 08:39 | Inpatient (IN) | payer OTHER, SELFPAY ==
--- OUTSIDE RECORDS SUMMARY | 2025-02-23 15:30 | XMS_ITS | Encounter Summary ---
Author Organization [facility] Address [address] [place] [address] Care Team Providers Care Pattern Drafter Name Role Phone Unavailable Primary Care Provider Unavailabl e Encounter Details Date Type Department Care Team (Latest Contact Info) Description 02/23/2025 3:30 PM EDT Routine [facility] [address] [place] [address] Kayla Singletary CNM [address] [place] [address] Encounter for care of first , third trimester ([facility]) (Primary Dx) Social History Tobacco Use Types Packs/Day Years [...] Sign Reading Time Taken Comments Blood Pressure 120/80 02/23/2025 3:43 PM EDT Pulse - - Temperature - - Respiratory Rate - - Oxygen Saturation - - Inhaled Oxygen Concentration - - Weight 109 kg (240 lb) 02/23/2025 3:43 PM EDT Height - - Body Mass Index 37.59 04/12/2023 2:17 PM EDT documented in this encounter Progress Notes * Kayla Singletary CNM - 02/23/2025 3:30 PM EDT Subjective No chief complaint on file. Lisa Ferguson is a 30 y.o. at 40w4d with a working estimated date of delivery of 02/19/2025, by Ultrasound who presents for a routine visit. She denies vaginal bleeding, leakage of fluid, decreased movements, or contractions. OB History Para Term AB Living 1 SAB IAB Ectopic Multiple Live Births # Outcome Date GA Lbr Nolberto/2nd Weight Sex Type Anes PTL Lv 1 Current Her is complicated by: Post dates, Objective Physical Exam Weight: 240 lb Expected Total Weight Gain: 11 lb-19 lb Pregravid BMI: 33.04 Heart Rate: 138 Fundal Height (cm): 41 cm Dilation: 2 Effacement (%): 70 Station: -3 Urine protein negative Urine glucose negative Assessment/Plan Diagnoses and all orders for this visit: Encounter for care of first , third trimester ([facility]) Continue vitamin. Labs reviewed. GBS negative Expected mode of delivery Follow up in 1 week for a routine visit. documented in this encounter Plan of Treatment Not on file documented as of this encounter Visit Diagnoses Diagnosis Encounter for care of first , third trimester ([facility])- Primary documented in this encounter
--- OUTSIDE RECORDS SUMMARY | 2025-02-23 16:15 | XMS_ITS | Encounter Summary ---
Author Organization [facility] Address [address] [place] [address] Care Team Providers Care Lead Caster Helper Name Role Phone Unavailable Primary Care Provider Unavailabl e Encounter Details Date Type Department Care Team (Latest Contact Info) Description 02/23/2025 4:15 PM EDT Ancillary Procedure [facility] [address] [place] [address] Post-term , 40-42 weeks of gestation ([facility]) Social History Tobacco Use Types Packs/Day Years [...] Procedure Name Priority Date/Time Associated Diagnosis Comments US BIOPHYSICAL PROFILE WO NON STRESS TESTING Routine 02/23/2025 4:30 PM EDT Post-term , 40-42 weeks of gestation ([facility]) documented in this encounter Results * US biophysical profile wo non stress testing (02/23/2025 4:30 PM EDT) Anatomical Region Laterality Modality Body Ultrasound 02/24/2025 8:34 AM EDT Narrative 02/24/2025 8:34 AM EDT EXAM: US BIOPHYSICAL PROFILE WO NON STRESS TESTING HISTORY: Post dates. COMPARISON: Ob ultrasound 02/23/2025. TECHNIQUE: Two-dimensional transabdominal grayscale ultrasound imaging of the pelvis was performed. FINDINGS: Gestation: Single Presentation: Cephalic Cardiac Activity: 138 beats per minute Placental Location: Anterior with no sonographic abnormalities identified. Cervical Length: 4.1 cm Amniotic Fluid Index: 16.6 cm BIOPHSYICAL PROFILE: movement: 2 breathin tone: 2 breathin BPP score: 8/8 IMPRESSION: 1. Single, live intrauterine gestation 40 weeks, 4 days by LMP. JAMEL by LMP is 02/20/2025. 2. Normal BPP 8/8. Interpreted by: Electronically signed by JUAN OLIVA II, MD, PHD at 24-Feb-2025 08:32:37 AM [facility] Procedure Note Juan Oliva MD - 02/24/2025 EXAM: US BIOPHYSICAL PROFILE WO NON STRESS TESTING HISTORY: Post dates. COMPARISON: Ob ultrasound 02/23/2025. TECHNIQUE: Two-dimensional transabdominal grayscale ultrasound imaging ofthe pelvis was performed. FINDINGS: Gestation: Single Presentation: Cephalic Cardiac Activity: 138 beats per minute Placental Location: Anterior with no sonographic abnormalitiesidentified. Cervical Length: 4.1 cm Amniotic Fluid Index: 16.6 cm BIOPHSYICAL PROFILE: movement: 2 breathin tone: 2 breathin BPP score: 8/8 IMPRESSION: 1. Single, live intrauterine gestation 40 weeks, 4 days by LMP. JAMEL by LMPis 02/20/2025. 2. Normal BPP 8/8. Interpreted by: Electronically signed by JUAN OLIVA II, MD, PHD [id number] 08:32:37 AM [facility] us Kayla Singletary CNM IMG OB US PROCEDURES Final R esult documented in this encounter Visit Diagnoses Diagnosis Post-term , 40-42 weeks of gestation ([facility]) documented in this encounter
--- OUTSIDE RECORDS SUMMARY | 2025-02-23 17:00 | XMS_ITS | Encounter Summary ---
Author Organization [facility] Address [address] [place] [address] Care Team Providers Care Audiovisual Production Specialist Name Role Phone Unavailable Primary Care Provider Unavailabl e Encounter Details Date Type Department Care Team (Latest Contact Info) Description 02/23/2025 5:00 PM EDT Ancillary Procedure [facility] [address] [place] [address] Post-term with 40-42 completed weeks of gestation ([facility]) Social History Tobacco Use Types Packs/Day Years [...] Name Priority Date/Time Associated Diagnosis Comments US OB FOLLOW UP TRANSABDOMINAL APPROACH Routine 02/23/2025 4:30 PM EDT Post-term infant with 40-42 completed weeks of gestation ([facility]) documented in this encounter Results * US OB follow up transabdominal approach (02/23/2025 4:30 PM EDT) Anatomical Region Laterality Modality Body Ultrasound 02/24/2025 8:34 AM EDT Narrative 02/24/2025 8:34 AM EDT EXAM: US OB FOLLOW UP TRANSABDOMINAL APPROACH HISTORY: Post dates. COMPARISON: Ob BPP 02/23/2025. TECHNIQUE: Two-dimensional transabdominal grayscale ultrasound imaging of the pelvis was performed. FINDINGS: Gestation: Single Presentation: Cephalic Cardiac Activity: 138 beats per minute Placental Location: Anterior with no sonographic abnormalities identified. Cervical Length: 4.1 cm Amniotic Fluid Index: 16.6 cm MEASUREMENTS: BPD: 9.3 cm EGA: 37 weeks 5 days HC: 33.1 cm EGA: 37 weeks 5 days AC: 37.6 cm EGA: 41 weeks 4 days FL: 7.4 cm EGA: 37 weeks 6 days HC/AC Ratio: 0.88 The gestational age by today's ultrasound is 38 weeks 5 days. Estimated Weight: 3905 grams, ( 8 lb 10 oz). IMPRESSION: 1. Single, live intrauterine gestation 40 weeks, 4 days by LMP. Today's ultrasound measurements correlate with a gestational age of 38 weeks 5 days. Estimated weight is 3905 grams, ( 8 lb 10 oz). JAMEL by today's ultrasound is 03/04/2025. Interpreted by: Electronically signed by JUAN OLIVA II, MD, PHD at 24-Feb-2025 08:32:43 AM [facility] Procedure Note Juan Oliva MD - 02/24/2025 EXAM: US OB FOLLOW UP TRANSABDOMINAL APPROACH HISTORY: Post dates. COMPARISON: Ob BPP 02/23/2025. TECHNIQUE: Two-dimensional transabdominal grayscale ultrasound imaging ofthe pelvis was performed. FINDINGS: Gestation: Single Presentation: Cephalic Cardiac Activity: 138 beats per minute Placental Location: Anterior with no sonographic abnormalitiesidentified. Cervical Length: 4.1 cm Amniotic Fluid Index: 16.6 cm MEASUREMENTS: BPD: 9.3 cm EGA: 37 weeks 5 days HC: 33.1 cm EGA: 37 weeks 5 days AC: 37.6 cm EGA: 41 weeks 4 days FL: 7.4 cm EGA: 37 weeks 6 days HC/AC Ratio: 0.88 The gestational age by today's ultrasound is 38 weeks 5 days. Estimated Weight: 3905 grams, ( 8 lb 10 oz). IMPRESSION: 1. Single, live intrauterine gestation 40 weeks, 4 days by LMP. Today'sultrasound measurements correlate with a gestational age of 38 weeks 5days. Estimated weight is 3905 grams, ( 8 lb 10 oz). JAMEL by today'sultrasound is 03/04/2025. Interpreted by: Electronically signed by JUAN OLIVA II, MD, PHD 08:32:43 AM [facility] Kayla Singletary CNM IMG OB US PROCEDURES Final R esult documented in this encounter Visit Diagnoses Diagnosis Post-term infant with 40-42 completed weeks of gestation ([facility]) documented in this encounter
--- OUTSIDE RECORDS SUMMARY | 2025-02-25 15:30 | XMS_ITS | Encounter Summary ---
Author Organization [facility] Address [address] [place] [address] Care Team Providers Care Warehouse Supervisor Name Role Phone Unavailable Primary Care Provider Unavailabl e Encounter Details Date Type Department Care Team (Latest Contact Info) Description 02/25/2025 3:30 PM EDT Routine [facility] [address] [place] [address] Kayla Singletary CNM [address] [place] [address] Encounter for care of first , third trimester ([facility]) (Primary Dx); Hx of trichomoniasis; Post-term , 40-42 weeks of gestation ([facility]) Social History Tobacco Use Types Packs/Day Years [...] Sign Reading Time Taken Comments Blood Pressure 118/80 02/25/2025 3:30 PM EDT Pulse - - Temperature - - Respiratory Rate - - Oxygen Saturation - - Inhaled Oxygen Concentration - - Weight 109 kg (241 lb) 02/25/2025 3:30 PM EDT Height - - Body Mass Index 37.75 04/12/2023 2:17 PM EDT documented in this encounter Progress Notes * Kayla Singletary CNM - 02/25/2025 3:30 PM EDT Subjective No chief complaint on file. Lisa Ferguson is a 30 y.o. at 40w6d with a working estimated date of delivery of 02/19/2025, by Ultrasound who presents for a routine visit. She denies vaginal bleeding, leakage of fluid, decreased movements, or contractions. OB History Para Term AB Living 1 SAB IAB Ectopic Multiple Live Births # Outcome Date GA Lbr Nolberto/2nd Weight Sex Type Anes PTL Lv 1 Current Her is complicated by: Post dates Objective Physical Exam Weight: 241 lb Expected Total Weight Gain: 11 lb-19 lb Pregravid BMI: 33.04 BP: 118/80 Urine protein-negative Urine glucose-negative Assessment/Plan Reactive NST Continue vitamin. Labs reviewed. GBS taken. Expected mode of delivery Follow up in 1 week for a routine visit. documented in this encounter Plan of Treatment Not on file documented as of this encounter Visit Diagnoses Diagnosis Encounter for care of first , third trimester ([facility])- Primary Hx of trichomoniasis Post-term , 40-42 weeks of gestation ([facility]) documented in this encounter
[2025-02-26] VITALS (60 sets, daily range): BP systolic 78–175; BP diastolic 42–92; PULSE 65–120; TEMP 36.3–36.8
--- OUTSIDE RECORDS SUMMARY | 2025-02-26 08:43 | XMS_ITS | Encounter Summary ---
Author Organization [facility] Address [address] [place] [address] Care Team Providers Care Adjuster Arbitrator Name Role Phone Unavailable Primary Care Provider Unavailabl e Encounter Details Date Type Department Care Team (Late st Contact Info) Description 02/26/2025 Telephone [facility] [address] [place] [address] Kayla Singletary, GUIDOM [address] [place] [address] Social History Tobacco Use Types Packs/Day Years [...] encounter Miscellaneous Notes * Telephone Encounter - Irma Plunkett - 02/26/2025 7:50 AM EDT Pt called OA stating her water broke 5 minutes ago and she has started having contractions. She wassupposed to come in today at 10am for an induction. Sent secure chat to Liset Singletary and she responded She should head over to [facility] now. Thanks I informed Pt and she stated understanding. documented in this encounter Plan of Treatment Not on file documented as of this encounter Visit Diagnoses Not on filedocumented in this encounter
--- OUTSIDE RECORDS SUMMARY | 2025-02-26 08:43 | XMS_ITS | Clinical Summary ---
Author Organization [facility] Address [id number] [address] [place] [address] Care Team Providers Care Clinical Resource Coordinator Name Role Phone No Pcp, No Pcp [...] trimester 025 Overview (12/16/2024): She lived in [place] during yuliet 1st trimester. Transfer of care to Lexus Singletary [facility] at 11 weeks. Dating U/S was 07/08/24 in [place]. Anatomy U/S 10/07/24. Rh negative state in [...] EDT - 01/31/2025 2:53 PM EDT Emergency [facility] -Emergency Department [address] [place] [address] Royce Ayala DO Tonsillitis (Primary Dx) Discharge Disposition: Home 01/31/2025 Travel 12/16/2024 12:14 AM EDT - 12/16/2024 4:49 AM EDT Hospital Encounter [facility] [address] [place] [address] Radha Sylvester, FITTER UP-CNM Keshia Bass MD Discharge Disposition: Left Against [...] Screen Negative Negative 02/01/2025 7:19 AM EDT [facility] 01/31/2025 12:2 4 PM EDT 02/01/2025 7:18 AM EDT us Siri Ana Faust FITTER UP-WING MAILER MACHINE OPERATOR POINT OF CARE TEST O RDERABLES Final Result [facility] [address] [place] [address], * SARS/FLU A+B/RSV by NAAT/Molecular (M4RT Collection Tube) (01/31/2025 12:22 PM EDT) Pathologist [facility] FLU A PCR Negative Negative 01/31/2025 1:23 PM EDT [facility] FLU B PCR Negative Negative 01/31/2025 1:23 PM EDT [facility] RSV BY PCR Negative Negative 01/31/2025 1:23 PM EDT [facility] SARS COV 2 BY PCR Not Detected Not Detected 01/31/2025 1:23 PM EDT [facility] Swab Nasopharyngeal structure / Unknown 01/31/2025 12:22 PM EDT 01/31/2025 12:40 PM EDT [facility] - 01/31/2025 1:23 PM EDT The Xpert [...] operators who are performing tests using either bizsol DX or River[employer] systems and is limited to laboratories that [...] specimen repeat. Fact Sheet for Healthcare Providers: https://www.fda.gov/media/693777/download Fact Sheet for Patients: https://www.fda.gov/media/676846/download us Royce Ayala DO MICROBIOLOGY - GENERAL ORDER JAUN Final Result [facility] [address] [place] [address], * nonstress test (12/16/2024 4:15 AM EDT) [...] Narrative [facility] - 05/28/2021 4:25 PM EDT [facility] [address] [place] [address] Gynecologic Cytology Consultation Patient Name: GLENNA FERGUSON : 1995 (Age: 26) Gender: F Taken: 05/24/2021 Reported: 05/28/2021 Physician(s): Deandra Swartz WING MAILER MACHINE OPERATOR ([phone]) Copy To: Med. Rec. #: [id number] Acct: # [id number] Final Cytologic Interpretation ThinPrep Pap Test (Cervical): Satisfactory for evaluation. A transformation zone component is present. Excessive thickness of smear present. NEGATIVE FOR INTRAEPITHELIAL LESION OR MALIGNANCY. Comment: This ThinPrep slide could not be successfully imaged by the [employer] Mobile ThinPrep Imaging System so it was manually screened. /05/28/2021 Interpretation performed at [facility], [address] [place] [address], License number: [id number]. Electronically Signed Out By Devan STANTON (ASCP) Date of Last Menstrual Period: 04/26/2021 Other Clinical Conditions: Z01.419 Child Care Cook exam wo/abn findings Source of Specimen ThinPrep Pap Test (Cervical) Thin Prep Pap (PHYSICIAN INTERNIST) Fee Code(s): G0123 The Pap test is a screening test with an inherent, but low, probability of error. The Pap test is primarily effective for the diagnosis and prevention of squamous cell carcinoma. Regular screening is critical for prevention. ThinPrep liquid-based slides, which meet the Electronic Intelligence Officer criteria for automated screening, have been screened by the ThinPrep Imaging System (as of 05/20/07) along with an additional manual rescreening by a retail receiving clerk and, if indicated, by a pathologist. Deandra Swartz FITTER UP-CNM PATHOLOGY/CYTOLOGY KATYAna KING Final Result [facility] from Last 3 Months or Most Recently Relevant to Health Maintenance Insurance [place] [employer] Advance Directives * Full Code (Latest Code Status on File) Date Activated Date Inactivated Comments 12/16/2024 4:23 AM 12/16/2024 6:55 AM * Full Code Date Activated Date Inactivated Comments 08/27/2016 5:48 PM 08/28/2016 3:02 PM Care Teams Clinical Resource Coordinator Relationship Specialty Start Date End Date No Pcp, [place] [id number] PCP - General Family Medicine 01/04/19
--- OUTSIDE RECORDS SUMMARY | 2025-02-26 08:44 | XMS_ITS | Encounter Summary ---
Author Organization [facility] Address [address] [place] [address] Care Team Providers Care Welfare Director Name Role Phone Unavailable Primary Care Provider Unavailabl e Encounter Details Date Type Department Care Team (Late st Contact Info) Description 02/04/2025 Results Follow-Up [facility] [address] [place] [address] Tara Carr MA Social History [...]
--- OUTSIDE RECORDS SUMMARY | 2025-02-26 08:44 | XMS_ITS | Clinical Summary ---
Author Organization [facility] Healthcare Address [address] [place] [address] Care Team Providers Care Scientific Editor Name Role Phone Unavailable Primary Care Provider Unavailabl e Allergies Active Allergy Reactions Criticality Noted Date Comments Fluoxetine Nausea And Vomiting, GI intolerance Low 02/08/2017 Hydrocodone-Acetaminophen Anaphylaxis,Nausea Only High 08/27/2016 Lamotrigine Nausea Only 01/31/2017 Medications multivitamin () 27-0.8 MG tabletIndication s: examination or test, positive result ([facility]) Take 1 tablet by mouth Daily 30 tablet 11 5 Active cephalexin (Keflex) 500 MG capsuleIndicatio ns:Asymptomatic microscopic hematuria Take 1 capsule (500 mg) by mouth in the morning and 1 capsule (500 mg) in the evening and 1 capsule (500 mg) before bedtime. Do all this for 10 days. 30 capsule 02/15/20 25 Encounters Date Type Department Care Team Description 02/26/2025 Telephone [facility] OB [facility] [place] [address] Kayla Singletary CNM 02/25/2025 3:30 PM EDT [facility] [address] [place] [address] Kayla Singletary CNM Encounter for care of first , third trimester ([facility]) (Primary Dx); Hx of trichomoniasis; Post-term , 40-42 weeks of gestation ([facility]) 02/25/2025 Bamboo flowsheet [facility] [place] [address] Kayla Singletary CNM 02/23/2025 5:00 PM EDT Ancillary Procedure [facility] [address] [facility] [address] [place] [address] Post-term with 40-42 completed weeks of gestation ([facility]) 02/23/2025 4:15 PM EDT Ancillary Procedure [facility] [address] [facility] [address] [place] [phone] Post-term , 40-42 weeks of gestation ([facility]) 02/23/2025 3:30 PM EDT Routine [facility] OB [address] [facility] [place] [address] Kayla Singletary CNM Encounter for care of first , third trimester ([facility]) (Primary Dx) 02/23/2025 Telephone [facility] [address] [facility] [place] [address] Kayla Singletary CNM 02/23/2025 Travel 02/23/2025 Orders Only [facility] [address] [facility] [place] [address] Kayla Singletary CNM Post-term , 40-42 weeks of gestation ([facility]) 02/17/2025 Clinisync Result Encounter NOMS External Department Unsolicited Kayla Singletary CNM 02/11/2025 1:30 PM EDT Routine [facility] [address] [facility] [place] [address] Kayla Singletary CNM Encounter for care of first , third trimester ([facility]) (Primary Dx); Hx of trichomoniasis 02/11/2025 Bamboo flowsheet [facility] [address] [facility] [place] [address] Kayla Singletary CNM 02/10/2025 Clinisync Result Encounter NOMS External Department Unsolicited Kayla Singletary CNM 02/09/2025 Telephone [facility] [address] [facility] [place] [address] Kayla Singletary CNM 02/04/2025 1:30 PM EDT Routine [facility] [address] [facility] [place] [address] Kayla Singletary CNM Asymptomatic microscopic hematuria (Primary Dx); Encounter for care of first , third trimester ([facility]); Hx of trichomoniasis 02/04/2025 Results Follow-Up [facility] [address] [facility] [place] [address] Tara Carr MA 02/04/2025 Bamboo flowsheet [facility] [address] [place] [address], [place] [address] Kayla Singletary CNM 01/27/2025 3:30 PM EDT Routine [facility] [place] [address] Kayla Singletary CNM screening for streptococcus B ([facility]); Screening for cervical cancer 01/27/2025 Bamboo flowsheet [facility] [address] [facility] [place] [address] Kayla Singletary CNM 01/12/2025 2:30 PM EDT Routine [facility] [address] [facility] [place] [address] Kayla Singletary CNM Encounter for care of first , third trimester ([facility]) (Primary Dx) 01/12/2025 Bamboo flowsheet [facility] [address] [facility] [place] [address] Kayla Singletary CNM 12/29/2024 2:30 PM EDT Routine [facility] [address] [facility] [place] [address] Kayla Singletary CNM Encounter for care of first , third trimester ([facility]) (Primary Dx); Elevated glucose tolerance test 12/29/2024 Bamboo flowsheet [facility] OB [address] [facility] [place] [address] Kayla Singletary CNM 12/15/2024 3:30 PM EDT Ancillary Procedure [facility] [address] [facility] [address] [place] [phone] related condition in third trimester ([facility]) 12/15/2024 Travel 12/01/2024 1:30 PM EDT Initial [facility] [address] [facility] [place] [address] Kayla Singletary CNM GA: [id number] 12/01/2024 Bamboo flowsheet [facility] [address] [facility] [place] [address] Kayla Singletary CNM from Last 3 [...] Pressure 118/80 02/25/2025 3:30 PM EDT Pulse 54 04/12/2023 2:17 PM EDT Temperature 36.7 C (98 F) 04/12/2023 2:17 PM EDT Respiratory Rate - - Oxygen Saturation 98% 04/12/2023 2:17 PM EDT Inhaled Oxygen Concentration - - Weight 109 kg (241 lb) 02/25/2025 3:30 PM EDT Height 170.2 cm (5' 7 ) 04/12/2023 2:17 PM EDT Body Mass Index 37.75 04/12/2023 2:17 PM EDT Plan of Treatment Health Maintenance Due Date Last Done Comments Pap Smear 01/17/2016 Cervical Cancer Screening 2025 HPV/Cotest 2025 Influenza Vaccine (Season Ended) 2025 Procedures Procedure Name Priority Date/Time Associated Diagnosis Comments US OB FOLLOW UP TRANSABDOMINAL APPROACH Routine 02/23/2025 4:30 PM EDT Post-term infant with 40-42 completed weeks of gestation ([facility]) US BIOPHYSICAL PROFILE WO NON STRESS TESTING Routine 02/23/2025 4:30 PM EDT Post-term , 40-42 weeks of gestation ([facility]) [facility] CBC WITH PLATELET NO DIFFERENTIAL Routine 02/17/2025 4:55 PM EDT [facility] DRUG SCREEN RAPID (URINE) Routine 02/17/2025 4:30 PM EDT URINE CULTURE, ROUTINE Routine 1:00 AM EDT [facility] URINE MICROSCOPIC ONLY Routine 02/10/2025 1:00 AM EDT [facility] UA (CLEAN/CATCH) BICYCLE MECHANIC/MICRO IF IND. Routine 02/10/2025 1:00 AM EDT THINPREP IMAGING PAP AND HPV DNA REFLEX HPV 16,18 Routine 01/27/2025 4:56 PM EDT Screening for cervical cancer STREPTOCCOUS, GROUP B CULTURE Routine 01/27/2025 4:55 PM EDT screening for streptococcus B ([facility]) GLUCOSE TOLERANCE TEST, GESTATIONAL,4SPEC(100G ) Routine 01/05/2025 9:31 AM EDT Elevated glucose tolerance test US OB FOLLOW UP TRANSABDOMINAL APPROACH Routine 12/15/2024 4:17 PM EDT related condition in third trimester ([facility]) GLUCOSE, GESTATIONAL SCREEN (50G)-135 CUTOFF Routine 12/01/2024 2:02 PM EDT Screening for diabetes mellitus (DM) CBC Routine 12/01/2024 2:02 PM EDT Screening for iron deficiency anemia from Last 3 Months Results * US OB follow up transabdominal approach (02/23/2025 4:30 PM EDT) Only the most recent of2 resultswithin the time period is included. Anatomical Region Laterality Modality Body Ultrasound 02/24/2025 8:34 AM EDT Narrative 02/24/2025 8:34 AM EDT EXAM: US OB FOLLOW UP TRANSABDOMINAL APPROACH HISTORY: Post dates. COMPARISON: Ob [facility] 02/23/2025. TECHNIQUE: Two-dimensional transabdominal grayscale ultrasound imaging [...] II, MD, PHD at 24-Feb-2025 08:32:43 AM [facility] Procedure Note Juan Oliva MD - 02/24/2025 EXAM: US OB FOLLOW UP TRANSABDOMINAL APPROACH HISTORY: Post dates. COMPARISON: Ob [facility] 02/23/2025. TECHNIQUE: Two-dimensional transabdominal grayscale ultrasound imaging [...] ( 8 lb 10 oz). [facility] [place] is 03/04/2025. Interpreted by: Electronically signed by JUAN OLIVA II, MD, PHD 08:32:43 AM [facility] us Kayla Singletary [facility] IMG OB US PROCEDURES Final R esult * US biophysical profile wo non stress [...] II, MD, PHD at 24-Feb-2025 08:32:37 AM [facility] Procedure Note Juan Oliva MD - [...] signed by JUAN OLIVA II, MD, PHD [id number] 08:32:37 AM [facility] us Kayla Singletary CNM IMG OB US PROCEDURES Final R esult * (ABNORMAL) [facility] CBC WITH PLATELET NO [...] - 02/17/2025 6:45 PM EDT us Kayla LORA [facility] Final Result Performing Organization Address [facility] Co de Phone Number [facility] * TB DRUG SCREEN RAPID (URINE) [...] us Kayla Singletary CNM [facility] Final Result Performing Organization Address [facility]/ZIP Co de Phone Number [facility] * URINE CULTURE, ROUTINE (02/10/2025 1:00 AM EDT) URINE CULTURE, ROUTINE Urine Culture, Routine TB URINE CULTURE, ROUTINE Mixed urogenital natalie TB URINE CULTURE, ROUTINE Less than 10,000 colonies/mL TB URINE CULTURE, ROUTINE Performed at: - [facility]INE CULTURE, ROUTINE [address] [place], [place] [id number] [facility] URINE CULTURE, ROUTINE Milling Machine Operator: Isaac Stockton PhD, Phone: [phone] TB 02/10/2025 1:00 AM EDT 02/10/2025 1:15 AM EDT Narrative [facility] - 02/11/2025 9:08 PM EDT Kayla Singletary CNM LAB BLOOD ORDERABLES Final R esult [facility] TB * (ABNORMAL) [facility] URINE MICROSCOPIC ONLY (02/10/2025 [...] AM EDT Kayla LORA [facility] Final Result [facility] TB * (ABNORMAL) [facility] UA (CLEAN/CATCH) BICYCLE MECHANIC/MICRO IF IND. (02/10/2025 1:00 AM EDT) COLOR [...] - 02/10/2025 1:34 AM EDT us Kayla LORAM [facility] Final Result [facility] * THINPREP IMAGING PAP AND HPV DNA [...] has been evaluated with computer assisted technology. AUTO DAMAGE APPRAISER [facility] Comment: ERICKSON SCT(ASCP) CT Screening Location: [place] [address]. REVIEW AUTO DAMAGE APPRAISER [facility] Comment: Reference Range: ZL, CT(ASCP) CT screening location: [place] [address]. (ALWAYS MESSAGE) [facility] Comment: EXPLANATORY NOTE: The [...] Performing Organization Information Site ID: AMD Name: [facility] Address: [address] [place] [address] Dr St[place], [place] Director: Mac Bird M.D.,PhD Site ID: [id number] Name: [facility] Address: [address] [place] [address], [address] [place] [phone] Director: Orion Humphries MD us Kayla L Floro CN LAB CYTOLOGY ORDERABLES Keli l Result Performing Organization Address [facility] de Phone Number [facility] * STREPTOCCOUS, GROUP B CULTURE (01/27/2025 4:55 PM EDT) MICRO NUMBER [id number] [facility] SPECIMEN QUALITY Adequate [facility] SOURCE VAGINAL/ANOR [...] Performing Organization Information Site ID: QPT Name: [facility] Address: [address] [place] [address], [address] [place] [phone] Director: Orion Humphries MD Kayla L Floro CN LAB BODY FLUIDS AND STOOLS O RDERABLES Final Result Performing Organization Address [facility] Co de Phone Number [facility] * (ABNORMAL) GLUCOSE TOLERANCE TEST, GESTATIONAL,4SPEC(100G) (01/05/2025 9:31 AM EDT) GLUCOSE, FASTING 86 65 - 94 mg/dL [facility] GLUCOSE, 1 HOUR 200(H) <180 mg/dL [facility] GLUCOSE, 2 HOUR 136 <155 mg/dL [facility] GLUCOSE, 3 HOUR 83 <140 mg/dL [facility] COMMENT [facility] Comment: Hussein/Rachael Criteria: Two or more values greater than the above reference intervals are suggestive of gestational diabetes. 01/05/2025 9:31 AM EDT 01/05/2025 9:31 AM EDT Narrative [facility] - 01/06/2025 12:53 PM EDT PT FELL TO SLEEP AND CAME IN LATE FOR LAST DRAW Resulting Agency Comment Performing Organization Information Site ID: QPT Name: [facility] Address: [address] [place] [address], [address] [place] [phone] Director: Orion Humphries MD us Kayla Nesha [facility]ce[facility] LAB BLOOD ORDERABLES Final R esult Performing Organization Address [facility] de Phone Number [facility] * (ABNORMAL) GLUCOSE, GESTATIONAL SCREEN (50G)-135 CUTOFF [...] Performing Organization Information Site ID: QPT Name: [facility] Address: [address] [place] [address], [address] [place] [phone] Director: Orion Humphries MD Kayla SOHMo CN LAB BLOOD ORDERABLES Final R esult Performing Organization Address [facility] Co de Phone Number [facility] * (ABNORMAL) CBC (12/01/2024 2:02 PM [...] Performing Organization Information Site ID: QPT Name: [facility] Address: [address] [place] [address], [address] [place] [phone] Director: Orion Humphries MD Kayla Singletary CNM LAB BLOOD ORDERABLES Final R esult [facility] from Last 3 Months Insurance [employer] [place] [id number]
--- OUTSIDE RECORDS SUMMARY | 2025-02-26 08:44 | XMS_ITS | Encounter Summary ---
Author Organization [facility] Address [address] [place] [address] Care Team Providers Care Adjunct Faculty Mathematics Department Name Role Phone Unavailable Primary Care Provider Unavailabl e Encounter Details Date Type Department Care Team (Late st Contact Info) Description 02/25/2025 Bamboo flowsheet [facility] [address] [place] [address] Kayla Singletary, CNM [address] [place], [place] [phone] Social History Tobacco Use Types Packs/Day Years [...]
--- OUTSIDE RECORDS SUMMARY | 2025-02-26 08:44 | XMS_ITS | Encounter Summary ---
Author Organization [facility] Address [address] [place] [address] Care Team Providers Care Casting Chipper Name Role Phone Unavailable Primary Care Provider Unavailabl e Encounter Details Date Type Department Care Team (Late st Contact Info) Description 02/23/2025 Telephone [facility] OB [address] [place] [address] Kayla Singletary CNM [address] [place] [address] Social History Tobacco Use Types [...] encounter Miscellaneous Notes * Telephone Encounter - Kayla Singletary CNM - 02/24/2025 10:10 AM EDT Patient was advised to go to [facility] for evaluation of vaginal bleeding, and states that she is not going, it stopped and she thinks she lost her mucous plug. * Telephone Encounter - MOUNIKA JOHNSON - 02/23/2025 8:29 PM EDT Pt called and she said she is 9months and 4 days and she is 2-3cm dilated and she went to the bathroom 07:30 and she had moderate amt dark red blood slight abdominal pain. Pt is wondering ifshe should go to ob triage? 29 mins You were added by Lisa Roberts. 23 mins VF Kayla Singletary CNM Yes she should go to [place]. I checked her today so she could have some blood spots from that 18 mins KR Lisa Roberts I can call her 12 mins ADÁN Singletary CNM Thank you 12 mins KR Lisa Roberts I contacted pt and she said she thinks it was her mucus plug she said she is fine and she does not want to go 8 mins VF Kayla Singletary CNM Ok. Thank you. You document that somewhere right? 1 min I will copy all of this for Lisa and put in patient chart Now VF Kayla Singletary CNM Thanks much!! Now VF your welcome. documented in this encounter Plan of Treatment Not on file documented as of this encounter Visit Diagnoses Not on filedocumented in this encounter
--- OUTSIDE RECORDS SUMMARY | 2025-02-26 08:44 | XMS_ITS | Encounter Summary ---
Author Organization [facility] Address [address] [place] [address] Care Team Providers Care Relay Adjuster Name Role Phone Unavailable Primary Care Provider Unavailabl e Encounter Details Date Type Department Care Team (Late st Contact Info) Description 02/17/2025 Clinisync Result Encounter NOMS External Department Unsolicited Kayla Singletary, CNM [address] [place] [address] Social History Tobacco Use Types Packs/Day Years [...] Procedure Name Priority Date/Time Associated Diagnosis Comments [facility] CBC WITH PLATELET NO DIFFERENTIAL Routine 02/17/2025 4:55 PM EDT TB DRUG SCREEN RAPID (URINE) Routine 02/17/2025 4:30 PM EDT documented in this encounter Results * (ABNORMAL) [facility] CBC WITH PLATELET NO DIFFERENTIAL (02/17/2025 4:55 PM EDT) [facility] WBC 10.2 4.0 - 11.0 10 3/uL TBH TBH RBC 3.61(L) 4.20 - 5.40 10 6/uL TBH TBH HGB 11.8(L) 12.0 - 16.0 g/dL TBH TBH HCT 34.0(L) 36.0 - 48.0 % TBH TBH MCV 94.2 81.0 - 99.0 fL TBH TBH MCH 32.7 26.7 - 34.0 pg TBH TB MCHC 34.7 29.9 - 35.2 g/dL TB TB RDW 14.6 11.0 - 15.0 % TBH TBH PLT 181 150 - 450 10 3/uL TBH TB MPV 11.9 9.5 - 13.5 fL TB 02/17/2025 4:55 PM EDT 02/17/2025 6:41 PM EDT Narrative [facility] - 02/17/2025 6:45 PM EDT us Kayla Singletary CNM [facility] Final Result [facility] * TB DRUG SCREEN RAPID (URINE) (02/17/2025 [...] Kayla Singletary CNM [facility] Final Result [facility] documented in this encounter Visit Diagnoses Not on filedocumented in this encounter
--- OUTSIDE RECORDS SUMMARY | 2025-02-26 08:44 | XMS_ITS | Encounter Summary ---
Author Organization [facility] Address [address] [place] [address] Care Team Providers Care Pipe Cleaner Name Role Phone Unavailable Primary Care Provider Unavailabl e Encounter Details Date Type Department Care Team (Latest Contact Info) Description 02/23/2025 Travel Social History Tobacco Use Types Packs/Day Years [...]
--- OUTSIDE RECORDS SUMMARY | 2025-02-26 08:44 | XMS_ITS | Encounter Summary ---
Author Organization [facility] Address [id number] [address] [place] [address] Care Team Providers Care Radiographer Technologist Name Role Phone No Pcp, No Pcp Primary Care Provider Unavailabl e Encounter Details Date Type Department Care Team (Late st Contact Info) Description 07/25/2021 Telephone [facility] [address] [place] [address] Archana Ro MA Social History [...] Aug @ 11:30AM WITH DR. NICKI DO [facility] FOR [facility] TO RETURN CALL PATIENT [...] documented as of this encounter Care Teams Radiographer Technologist Relationship Specialty Start Date End Date No Pcp, No Pcp YISEL [place] [address] PCP - General Family Medicine 01/04/19 documented as of this encounter
--- OUTSIDE RECORDS SUMMARY | 2025-02-26 08:44 | XMS_ITS | Patient Health Record ---
Author Organization [facility] vices Address [address] [place], [place] [address] Care Team Providers Care Die Cleaner Name Role Phone Estefania Naranjo Unavailable [phone] Allergies Allergen (clinical drug ingredient) Drug/Non Drug [...] Problem Status W/U Status Risk Notes Problem [id number] Impacted third molar tooth (K01.1) Active confirmed Problem Heartburn (96202479) Heartburn (R12) Active confirmed Comment:Tria l of PRN PPI to help with the symptoms. Discussed with patient at length: PVU., Problem Arthralgia of the ankle and/or foot (694110871) RIGHT ANKLE PAIN (M25.571) Active confirmed Comment:Deanne ent denied trial of NSAID or any other anti-inflamm atory because she has severe heartburn. She will continue Tylenol for now. Repeat Xray and start PT. IF no relief - then patient will need MRI. She wants to wait for ortho referral for now. Continue to monitor., Problem Depression screening (510665128) Screening for depression (Z13.31) Active confirmed Description: Depression screening Problem Mixed anxiety and depressive disorder (369185377) Anxiety and depression (F41.9) Active confirmed Problem Exposure to sexually transmissible disorder (event) (744099455) STD exposure (Z20.2) Active confirmed Comment:1. Hx of possible STD exposure. Aptima, syphilis and HIV testing sent today 2. Call w/ results., Problem Bipolar disorder (50873379) Bipolar affective (F31.9) Active confirmed Plan Of Treatment No Information Insurance Providers Payer Name Payer Address Payer Phone Subscriber Number Group Number Insured Name Patient Relationship to Insured Coverage Start Date Coverage End Date zzDUnited -Dentaqu est [facility] [address] [place] [address] [id number] Lisa Ferguson Self - patient is the insured 2 DMedicaid CFC after [facility] [address] [place], [place] [id number] Lisa Ferguson Self - patient is the insured 2 Medical (General) History Medical History History ICD Code DEPRESSION, ProblemStatus: Active, , No Known Problems, ProblemStatus: Inacti ve, , Problems Reconciled, ProblemStatus: Acti ve, , Surgical History Surgery Date(Month/Year) tooth surgeries, ProblemStatus: Active, : In-office,
--- OUTSIDE RECORDS SUMMARY | 2025-02-26 08:44 | XMS_ITS | Encounter Summary ---
Author Organization [facility] Address [address] [place] [address] Care Team Providers Care Editor House Organ Name Role Phone Unavailable Primary Care Provider Unavailabl e Encounter Details Date Type Department Care Team (Late st Contact Info) Description 02/23/2025 Orders Only [facility] OB [address] [place] [address] Kayla Singletary, CNM [address] [place] [address] Post-term , 40-42 weeks of gestation ([facility]) Social History Tobacco Use Types Packs/Day Years [...] on file documented as of this encounter Results * US biophysical profile [...] II, MD, PHD at 24-Feb-2025 08:32:37 AM [facility] Procedure Note Juan Oliva MD - [...] signed by JUAN OLIVA II, MD, PHD [id number] 08:32:37 AM [facility] us Kayla Singletary CNM IMG OB US PROCEDURES Final R esult documented in this encounter Visit Diagnoses Diagnosis Post-term , 40-42 weeks of gestation ([facility]) Post-term , 40-42 weeks of gestation ([facility]) documented in this encounter
--- OUTSIDE RECORDS SUMMARY | 2025-02-26 08:44 | XMS_ITS | Encounter Summary ---
Author Organization [facility] Address [address] [place] [address] Care Team Providers Care Er Manager Name Role Phone Unavailable Primary Care Provider Unavailabl e Encounter Details Date Type Department Care Team (Late st Contact Info) Description 02/09/2025 Telephone [facility] OB [address] [place] [address] Kayla Singletary, CNM [address] [place] [address] Social History Tobacco Use Types [...] encounter Miscellaneous Notes * Telephone Encounter - Lisa Roberts - 02/23/2025 7:55 PM EDT Pt called and she said she is 9months and 4 days and she is 2-3cm dilated and she went to the bathroom 07:30 and she had moderate amt dark red blood slight abdominal pain. Pt is wondering ifshe should go to ob triage? * Telephone Encounter - MOUNIKA JOHNSON - 02/09/2025 10:57 PM EDT Patient is calling OA due to she is not able to feel the baby to move all day, her whole body is swollen. She is wondering should she go to the OBGYN triage. Blood pressure is 126/87 Yes. Go to [facility] for eval Yes she needs to go to triage especially if it's been all day w no movement Patient is aware due to I was on the phone while messaging Dr. Singletary documented in this encounter Plan of Treatment Not on file documented as of this encounter Visit Diagnoses Not on filedocumented in this encounter
--- OUTSIDE RECORDS SUMMARY | 2025-02-26 08:44 | XMS_ITS | Encounter Summary ---
Author Organization [facility] Address [id number] [address] [place] [address] Care Team Providers Care Steersman Name Role Phone No Pcp, No Pcp Primary Care Provider Unavailabl e Encounter Details Date Type Department Care Team (Late st Contact Info) Description 08/23/2021 Telephone [facility] [address] [place] [address] Archana Ro MA Social History [...] documented as of this encounter Care Teams Steersman Relationship Specialty Start Date End Date No Pcp, [place] [address] PCP - General Family Medicine 01/04/19 documented as of this encounter
[2025-02-26 09:37] LABS: Amphetamine Screen Urine NEGATIVE (NEGATIVE); Benzodiazepines Screen Urine NEGATIVE (NEGATIVE); Cannabinoid Screen Urine NEGATIVE (NEGATIVE); Cocaine Screen Urine NEGATIVE (NEGATIVE); Methamphetamines Screen Urine NEGATIVE (NEGATIVE); Opiate Screen Urine NEGATIVE (NEGATIVE); Phencyclidine Screen Urine NEGATIVE (NEGATIVE)
[2025-02-26 09:38] LABS: Barbiturates Screen Urine NEGATIVE (NEGATIVE); Buprenorphine Screen Urine NEGATIVE (NEGATIVE); Methadone Screen Urine NEGATIVE (NEGATIVE); Oxycodone Screen Urine NEGATIVE (NEGATIVE); Tricyclic Antidepressant Urine NEGATIVE (NEGATIVE)
[2025-02-26] MEDS: NALBUPHINE HCL 10 MG/ML AMPULE 20 MG IM (09:38)
[2025-02-26] MEDS: LACTATED RINGER'S SOLUTION 1,000 ML 125 ML IV (09:39)
[2025-02-26 09:46] LABS: Hematocrit 36.7 % (36.0-48.0); Hemoglobin 12.6 g/dL (12.0-16.0); Mean Corpuscular HGB Conc 34.3 g/dL (29.9-35.2); Mean Corpuscular Hemoglobin 32.2 pg (26.7-34.0); Mean Corpuscular Volume 93.9 fL (81.0-99.0); Platelet Count 155 10^3/uL (150-450); Red Blood Count 3.91 10^6/uL (4.20-5.40); Red Cell Distribution Width 14.4 % (11.0-15.0); White Blood Count 11.5 10^3/uL (4.0-11.0)
[2025-02-26] MEDS: ROPIVACAINE HCL/PF 400 MG/200 ML PREMIX 6 MG EPIDURAL (13:32)
--- NOTE | 2025-02-26 14:47 | PM.OBHP ---
OB - H&P: HPI History of Present Illness Chief complaint: LABOR : 1 Para: 0 Gestational age based on last menstrual period: 41.0 History of Present Dating criteria: LMP confirmed by 1st trimester US care: good care Ultrasounds: normal 1st trimester US Medical complications OB: none Labs Blood type: A (-) negative Rubella: nonimmune RPR/VDLR: nonreactive GBS status: negative HBsAG: negative Review of Systems ROS Status of ROS: 10 or more systems reviewed and unremarkable except as noted in history and below PFSH PFSH Social History Little interest or pleasure in doing things: not at all Feeling down, depressed, or hopeless: not at all Meds Home Medications and Allergies Allergies Allergy/AdvReac Type Severity Reaction Status Date / Time pomegranate Allergy Intermediate Cramping Verified 02/18/25 05:54 of the Muscles lamotrigine AdvReac Nausea Verified 02/18/25 05:54 Exam Constitutional Vital Signs, click to edit/add: Last Vital Signs Temp 97.7 F 02/26/25 11:20 Pulse 93 H 02/26/25 14:39 Resp 20 02/26/25 11:20 BP 96/57 02/26/25 14:39 O2 Del Method Room Air 02/26/25 10:00 Common normals: no apparent distress General appearance: cooperative Orientation/consciousness: Yes awake, Yes oriented to person, Yes oriented to place and Yes oriented to time HENMT Common normals: normocephalic Eye Common normals: EOMs intact bilaterally Neck & C-Spine Common normals: full ROM General: normal visual inspection Lymph Lymphatic: no lymphadenopathy noted Chest Common normals: inspection of chest normal Respiratory Common normals: normal respiratory effort, no retractions, no use of accessory muscles, clear to auscultation bilaterally and percussion normal Effort & inspection: able to speak in complete sentences Auscultation: clear to auscultation bilaterally Cardio Common normals: regular rate and regular rhythm Rate: regular rate GI Common normals: Normal to inspection, nondistended, normoactive bowel sounds present, soft to palpation and non-tender Inspection: normal to inspection Auscultation: normoactive bowel sounds Palpation: soft Common normals: no CVA tenderness Results Labs Labs: Short CBC 02/26/25 Range/Units 09:28 WBC 11.5 H (4.0-11.0) 10^3/uL Hgb 12.6 (12.0-16.0) g/dL Hct 36.7 (36.0-48.0) % Plt Count 155 (150-450) 10^3/uL
[2025-02-26] MEDS: ONDANSETRON PF 4 MG/2 ML VIAL IV (15:08)
[2025-02-26] MEDS: OXYTOCIN/0.9 % SODIUM CHLORIDE 10 UNITS/500 ML PLAST..BAG 6 UNIT IV (15:33)
[2025-02-26] MEDS: LIDOCAINE HCL 1% 200 MG/20 ML MDV INJ (21:29)
[2025-02-26] MEDS: OXYTOCIN/0.9 % SODIUM CHLORIDE 20 UNITS/1,000 ML PLAST..BAG 125 UNIT IV (21:41)
--- NOTE | 2025-02-26 22:37 | PM.OBPRCVD ---
Procedure Intrapartal events: None Induction method: none Delivery augmentation: pitocin Delivery monitor: external FHT and external uterine Route of delivery: Indication for instrumentation: nonreassuring FHR tracing Episiotomy Description: none L&D Laceration Description: periurethral - 1st degree and perineal - 2nd degree Delivery repair: Vicryl Estimated blood loss (mL): 400 Anesthesia type: Epidural Disposition: no change Gender: male presentation: vertex Placental delivery description: Spontaneous cord description: 3 Vessels, Nuchal Cord, Loose, Reduced and Around Body x1 heart rate - 1 minute: 100 bpm or Greater respiratory effort - 1 minute: Spontaneous/Strong Cry muscle tone - 1 minute: Active Movement reflex response - 1 minute: Minimal Response color - 1 minute: Bluish Hands or Feet total score - 1 minute: 8 heart rate - 5 minute: 100 bpm or Greater respiratory effort - 5 minute: Spontaneous/Strong Cry muscle tone - 5 minute: Active Movement reflex response - 5 minute: Prompt Response color - 5 minute: Bluish Hands or Feet total score - 5 minute: 9
[2025-02-27] VITALS (7 sets, daily range): BP systolic 90–123; BP diastolic 57–69; PULSE 80–96; TEMP 36.6–37
[2025-02-27] MEDS: GLYCERIN/WITCH HAZEL PADS 1 PAD TOPICAL (00:15)
[2025-02-27] MEDS: IBUPROFEN 600 MG TABLET 800 MG PO (00:16)
[2025-02-27] MEDS: BENZOCAINE/MENTHOL 85 GRAM SPRAY BOTTLE 1 APPLIC TOPICAL (00:17)
[2025-02-27 06:29] LABS: Hematocrit 28.8 % (36.0-48.0); Hemoglobin 10.1 g/dL (12.0-16.0); Mean Corpuscular HGB Conc 35.1 g/dL (29.9-35.2); Mean Corpuscular Hemoglobin 33.1 pg (26.7-34.0); Mean Corpuscular Volume 94.4 fL (81.0-99.0); Mean Platelet Volume 11.6 fL (9.5-13.5); Platelet Count 172 10^3/uL (150-450); Red Blood Count 3.05 10^6/uL (4.20-5.40); Red Cell Distribution Width 14.6 % (11.0-15.0); White Blood Count 18.1 10^3/uL (4.0-11.0)
[2025-02-27 06:55] LABS: Lymphocytes Absolute Manual 1.44 10^3/uL (1.20-3.80); Segmented Neut Absolute Manual 15.74 10^3/uL (1.4-6.5)
[2025-02-27] MEDS: DOCUSATE SODIUM 100 MG CAPSULE PO ×2 (08:22→23:39)
[2025-02-27] MEDS: IBUPROFEN 400 MG TABLET 800 MG PO ×2 (08:33→17:33)
--- NOTE | 2025-02-27 10:36 | PM.OBPN ---
OB - PN: Subj Subjective Patient comments: no complaints, pain well controlled, tolerating diet and flatus present status: doing well and well [place] feeding status: exclusively Exam Constitutional Vital Signs, click to edit/add: Last Vital Signs Temp 98.3 F 02/27/25 08:00 Pulse 80 02/27/25 08:05 Resp 16 02/27/25 08:00 BP 90/57 02/27/25 08:05 O2 Del Method Room Air 02/27/25 08:00 Documenting provider has reviewed patient's vital signs: yes Common normals: no apparent distress, average body habitus, oriented x3, healthy appearing, alert and well nourished General appearance: cooperative, comfortable, well kempt and well developed Orientation/consciousness: Yes awake, Yes oriented to person, Yes oriented to place and Yes oriented to time Chest Common normals: inspection of breasts normal GI Common normals: Normal to inspection, nondistended, normoactive bowel sounds present, soft to palpation and non-tender Palpation: soft and firm (Fundus firm and 1 fingerbreadth below umbilicus) Back & Pelvis Pelvis: other (Mild lochia rubra is present.) Extremity Common normals: normal to inspection, no calf tenderness and no pedal edema Results Labs Labs: Short CBC 02/27/25 Range/Units 06:13 WBC 18.1 H (4.0-11.0) 10^3/uL Hgb 10.1 L (12.0-16.0) g/dL Hct 28.8 L (36.0-48.0) % Plt Count 172 (150-450) 10^3/uL OB - PN: A/P Plan - Vaginal Delivery day: 1 Plan: routine care Time Spent with Patient Time: Total time spent is greater than 50% in coordination of care (as documented) at patient's floor/unit and/or counseling patient: Total time spent with greater than 50% in coordination of care (as documented) at patient's floor/unit and/or counseling patient: less than 15 minutes
[2025-02-27] MEDS: ACETAMINOPHEN 325 MG TABLET 650 MG PO ×2 (17:33→23:39)
[2025-02-28 00:01] VITALS: BP 113/83; PULSE 108
[2025-02-28] MEDS: IBUPROFEN 400 MG TABLET 800 MG PO ×2 (01:38→12:58)
[2025-02-28 08:30] VITALS: BP 113/70; PULSE 76; TEMP 36.7
[2025-02-28] MEDS: DOCUSATE SODIUM 100 MG CAPSULE PO (08:38)
--- NOTE | 2025-02-28 08:48 | PM.OBPN ---
OB - PN: Subj Subjective Patient comments: no complaints [place] status: doing well feeding status: exclusively Exam Constitutional Vital Signs, click to edit/add: Last Vital Signs Temp 97.8 F 02/27/25 17:38 Pulse 76 02/28/25 08:30 Resp 14 02/27/25 17:38 BP 113/70 02/28/25 08:30 O2 Del Method Room Air 02/28/25 00:02 Documenting provider has reviewed patient's vital signs: yes Common normals: no apparent distress General appearance: cooperative and comfortable HENMT Common normals: normocephalic Face and sinus: normal facial exam Eye Common normals: EOMs intact bilaterally Neck & C-Spine Common normals: full ROM General: normal visual inspection Chest Common normals: inspection of chest normal Respiratory Common normals: normal respiratory effort Effort & inspection: able to speak in complete sentences Auscultation: clear to auscultation bilaterally Cardio Common normals: regular rate and regular rhythm Rate: regular rate Rhythm: regular rhythm GI Common normals: Normal to inspection, nondistended, normoactive bowel sounds present Inspection: normal to inspection Auscultation: normoactive bowel sounds Palpation: soft Common normals: no CVA tenderness Back & Pelvis Common normals: no CVA tenderness Extremity Common normals: normal to inspection Neuro Common normals: oriented x3 Sensorium/orientation: awake, alert, oriented to person, oriented to place and oriented to time Psych Common normals: mental status grossly normal, thought process normal, cooperative, affect normal, speech normal, activity/motor behavior normal, denies hallucinations, denies homicidal ideation and denies suicidal ideation Appearance: grossly normal Attitude: calm OB - PN: A/P Plan - Vaginal Delivery day: 2 Plan: discharge home Time Spent with Patient Time: Total time spent is greater than 50% in coordination of care (as documented) at patient's floor/unit and/or counseling patient: Total time spent with greater than 50% in coordination of care (as documented) at patient's floor/unit and/or counseling patient: less than 15 minutes
[2025-02-28] MEDS: RHO(D) IMMUNE GLOBULIN 1,500 UNIT SYRINGE 1500 UNIT IM (09:30)
[2025-02-28] MEDS: MEASLES,MUMPS,RUBELLA VACC/PF 0.5 ML VIAL SQ (13:09)
== END 2025-02-28 13:30 | disposition home or self-care (01) | DRG 560 ==
PROVIDERS: Admitting Provider Midwife; Visit Provider Midwife
DX: O26.893 Other specified pregnancy related conditions, third trimester (principal); Z67.11 Type A blood, Rh negative; O76 Abnormality in fetal heart rate and rhythm complicating labor and delivery; O70.1 Second degree perineal laceration during delivery; O69.81X0 Labor and delivery complicated by cord around neck, without compression, not applicable or unspecified; O99.334 Smoking (tobacco) complicating childbirth; F17.210 Nicotine dependence, cigarettes, uncomplicated; Z3A.41 41 weeks gestation of pregnancy; Z37.0 Single live birth; F19.21 Other psychoactive substance dependence, in remission
CPT/HCPCS: 36415; 51702; 59050; 59410; 80307; 85007; 85027; 85461; 86850; 86900; 86901; 90707; J2300; J2405; J2791; J2795